=== PATIENT | female | born 1980 | race Caucasian/White ===

== ENCOUNTER 2023-02-16 10:23 | Outpatient (OUT) | payer OTHER, SELFPAY ==
--- NOTE | 2023-02-16 10:34 | US_ITS ---
The [address] [address] Patient Name: JUANIS ONEILL MRN: [id number] date: 1980 Sex: F Assigned Patient Location: US Current Patient Location: US Accession/Order Number: [id number] Exam Date: 02/16/2023 10:35 Report Date: 02/16/2023 21:16 At the request of: MARLENY LAYNE Procedure: US pelvis w/ transvaginal EXAM: US pelvis w/ transvaginal INDICATION: Menorrhagia With Irregular Cycle N92.1 COMPARISON: Pelvic ultrasound 08/25/2022 TECHNIQUE: Transabdominal and transvaginal ultrasound with grayscale, color and spectral Doppler imaging. FINDINGS: Uterus:10.0 x 5.8 x 7.0 cm. Nabothian cyst along the cervix. 1.4 x 1.2 x 1.2 cm hypoechoic nodule anterior uterine body. Endometrium:6.0 mm Right ovary: 3.3 x 2.3 x 2.6 cm. Volume: 10.2 cc Dominant follicle within the left ovary Left ovary: 4.5 x 2.3 x 2.6cm. Volume: 13.9 cc Normal color Doppler with arterial/venous spectral tracing to both ovaries. No free fluid in the cul-de-sac. US/US pelvis w/ transvaginal IMPRESSION: 1. No acute findings. Findings likely representing small uterine fibroid. No suspicious uterine or ovarian mass. Electronically authenticated by: MARLINE ACEVES Date: 02/16/2023 21:16
[2023-02-16 11:38] LABS: Basophils Percent Auto 0.5 % (0.2-2.0); Eosinophils Absolute Auto 0.1 10^3/uL (0.0-0.7); Eosinophils Percent Auto 2.2 % (0.9-7.0); Hematocrit 34.9 % (36.0-48.0); Hemoglobin 9.7 g/dL (12.0-16.0); Immature Granulocytes Abs Auto 0.01 10^3/uL (0.00-0.03); Immature Granulocytes Pct Auto 0.2 % (0.0-0.5); Lymphocytes Absolute Auto 1.9 10^3/uL (1.2-3.8); Lymphocytes Percent Auto 30.2 % (20.5-60.0); Mean Corpuscular HGB Conc 27.8 g/dL (29.9-35.2); Mean Corpuscular Hemoglobin 20.5 pg (26.7-34.0); Mean Corpuscular Volume 73.8 fL (81.0-99.0); Mean Platelet Volume 11.6 fL (9.5-13.5); Monocytes Absolute Auto 0.4 10^3/uL (0.3-0.8); Monocytes Percent Auto 6.7 % (1.7-12.0); Neutrophils Absolute Auto 3.8 10^3/uL (1.4-6.5); Neutrophils Percent Auto 60.2 % (43.0-75.0); Platelet Count 272 10^3/uL (150-450); Red Blood Count 4.73 10^6/uL (4.20-5.40); Red Cell Distribution Width 16.8 % (11.0-15.0); White Blood Count 6.3 10^3/uL (4.0-11.0)
== END 2023-02-16 10:24 | disposition home or self-care (01) ==
LOC: US 10:28
PROVIDERS: Visit Provider Obstetrics & Gynecology
DX: N92.1 Excessive and frequent menstruation with irregular cycle (principal)
CPT/HCPCS: 36415; 76830; 76856; 85025

== ENCOUNTER 2023-03-05 10:50 | Emergency (ER) | payer OTHER, SELFPAY ==
[2023-03-05 11:00] VITALS: BP 131/64; PULSE 67; RESP 18; TEMP 36.9; O2SAT 97; BMI 44.6
[2023-03-05 12:02] VITALS: BP 130/62; PULSE 79; RESP 18; O2SAT 98
--- NOTE | 2023-03-05 12:18 | ED_ITS ---
HPI - General Adult General Chief complaint: Urogenital-Female Stated complaint: UROGENITAL-FEMALE Time Seen by Provider: 03/05/23 12:04 Source: patient Mode of arrival: Wheelchair Limitations: no limitations History of Present Illness HPI narrative: Patient is a [id number] female who is presenting to the Emergency Room with chief complaint of dysfunctional uterine bleeding. Patient had a IUD placed several weeks ago. Patient stated she been having intermittent bleeding since then, but having more bleeding yesterday and today. Patient says that she has had a history of a D and C and blood transfusion secondary to vaginal bleeding the past. Patient is a , with 5 live children and 4 miscarriages. Patient is not lightheaded or dizzy. Patient has some mild suprapubic cramping. Mother bedside. Dr. Rodriguez is patient's [employer]. Patient did not call Dr. Rodriguez office this morning, she came to the Emergency Room for her heavy bleeding yesterday and today. No urinary frequency or burning. No diarrhea or constipation. No trauma. No traumatic intercourse, no falls, no trauma that would be related to increasing bleeding. . All systems are negative except as noted/marked. All systems reviewed and othe rwise negative. . Nurses note and vital signs reviewed and patient is not hypoxic. General: The patient appears well and in no apparent distress. Patient is resting comfortably on cart. Patient is not toxic, lethargic, or listless Skin: Warm, dry, no pallor noted. There is no rash noted. No petechiae, purpura. Head: Normocephalic, atraumatic Eye: Normal conjunctiva, no drainage, EOMI. PERRL Ears, Nose, Mouth, and Throat: oral mucosa is moist. Nares patent. Mouth without vesicles. Cardiovascular: Regular Rate and Rhythm, no murmur, gallop, rub Respiratory: Patient is in no distress, no accessory muscle use, lungs are clear to auscultation, no wheezing, rales or rhonchi Back: non-tender, no CVA tenderness bilaterally to percussion. No CT LS midline pain GI: soft, obese, Mild suprapubic tenderness to palpation, no flank pain bilateral, no peritoneal signs, otherwise tenderness to palpation, no masses appreciated. No rebound, guarding, or rigidity noted. No flank pain bilateral, No distention Musculoskeletal: Patient has full range of motion of all of the extremities, no motor, sensory, or focal neurological deficits Neurological: A&O x3, normal speech Psychiatric: Cooperative Related Data Home Medications Medication Instructions Recorded Confirmed No Known Home Medications 03/05/23 03/05/23 Allergies Allergy/AdvReac Type Severity Reaction Status Date / Time No Known Drug Allergies Allergy Verified 03/05/23 11:00 [facility] Social History Smoking status: Current every day smoker Exam Constitutional Vital Signs, click to edit/add: Last Vital Signs Temp 98.4 F 03/05/23 11:00 Pulse 70 03/05/23 13:11 Resp 18 03/05/23 13:11 BP 130/60 03/05/23 13:11 Pulse Ox 99 03/05/23 13:11 O2 Del Method Room Air 03/05/23 13:11 Course Vital Signs Vital signs: Vital Signs Temperature 98.4 F 03/05/23 11:00 Pulse Rate 67 03/05/23 11:00 Respiratory Rate 18 03/05/23 11:00 Blood Pressure 131/64 03/05/23 11:00 Pulse Oximetry 97 03/05/23 11:00 Oxygen Delivery Method Room Air 03/05/23 11:00 Temperature 98.4 F 03/05/23 11:00 Pulse Rate 70 03/05/23 13:11 Respiratory Rate 18 03/05/23 13:11 Blood Pressure 130/60 03/05/23 13:11 Pulse Oximetry 99 03/05/23 13:11 Oxygen Delivery Method Room Air 03/05/23 13:11 Medical Decision Making [facility] Narrative Medical decision making narrative: `[address] Rodriguez, he is aware of patient in the Emergency Room. He recommended to perform ultrasound if possible to make sure that the IUD has seated in appropriate place and let the patient that she could have bleeding for the next 2-3 months. He will follow-up with the patient in the outpatient setting, no other recommended test at this time. 1500 Therapy appears the patient's IUD is intact and in place. No acute te sting otherwise is indicated, patient hemodynamically stable. Patient does not appear to be symptomatically anemic where she would need a transfusion, education was done at bedside discussing this. Patient's results were discussed, she was given a copy of her ultrasound report as well. Patient was told several times at bedside that she may have dysfunctional uterine bleeding for the next 2 or 3 months. Patient has an outpatient appointment scheduled on March 13. Patient will continue increase fluids, no other acute questions at discharge. Mother has been at bedside. Discharge Plan Discharge Chief Complaint: Urogenital-Female Clinical Impression: DUB (dysfunctional uterine bleeding) Patient Disposition: Home, Self-Care Condition: Fair Prescriptions / Home Meds: No Action No Known Home Medications Instructions: Abnormal (Dysfunctional) Uterine Bleeding (ED) Additional Instructions: Increase fluids at home. He may had dysfunctional uterine bleeding for the next 2 or 3 months, follow-up with Dr. Rodriguez at your scheduled appointment on March 13. Stand Alone Forms: Portal Instructions Referrals: Physician,Non-Staff, MD [Primary Care Provider] - 1 week Discharge Date/Time: 03/05/23 15:01
--- NOTE | 2023-03-05 12:18 | US_ITS ---
The [address] [address] Patient Name: JUANIS OENILL MRN: [id number] date: 1980 Sex: F Assigned Patient Location: ER Current Patient Location: ER Accession/Order Number: [id number] Exam Date: 03/05/2023 12:30 Report Date: 03/05/2023 13:24 At the request of: SHERRILL PHAN Procedure: US pelvis transvaginal Ultrasound pelvis, non-obstetric CLINICAL: Request by Dr. Rodriguez, placement of IUD , vaginal bleeding for 23 days. TECHNIQUE: Transvaginal pelvic ultrasound was performed. FINDINGS: Comparison: Comparison made to study 02/16/2023. The uterus is anteverted in position. It measures 10.9 x 6.1 x 6.8 cm. The myometrium is heterogeneous. In the anterior mid uterine body is a hypoechoic vascular nodule with some shadowing and favoring in intramural fibroid and measures 1.5 x 1.4 x 1.4 cm. The endometrial complex measures 14 mm in thickness. There is an intrauterine device with the arms of the IUD in the upper body and the stem in the mid to lower uterine segment. The superior margin of the IUD is approximately 1.2 cm from the superior margin of the endometrium at the fundus, as seen on the last image 53. The right ovary measures 2.5 x 1.8 x 1.8 cm with small follicles. The left ovary measures 6.0 x 2.9 x 3.2 cm. There are 2 dominant cysts in the left ovary measuring 2.5 x 2.3 x 2.1 cm and 2.9 x 2.3 x 1.6 cm. There is normal vascular flow to both ovaries, with resistive index of 0.41 on right and 0.56 on the left. No adnexal abnormality. There is no free pelvic fluid or mass seen on either side. US/US pelvis transvaginal IMPRESSION: 1. Endometrial complex thickness of 14 cm. Intrauterine device with the arms of the IUD in the upper uterine body approximately 1.2 cm from the superior margin of the endometrium at the fundus, and the stem in the mid to lower uterine segment. 2. Heterogeneous myometrium, with a 1.5 cm intramural fibroid in the anterior mid uterine body. 3. Normal right ovary, and 2 dominant cysts in the left ovary measuring 2.5 cm and 2.9 cm. 4. No free pelvic fluid. Electronically authenticated by: NAPOLEON SOLOMON Date: 03/05/2023 13:24
[2023-03-05 13:11] VITALS: BP 130/60; PULSE 70; RESP 18; O2SAT 99
== END 2023-03-05 15:01 | disposition home or self-care (01) ==
PROVIDERS: Emergency Provider Emergency Medicine
DX: N93.8 Other specified abnormal uterine and vaginal bleeding (principal); Z97.5 Presence of (intrauterine) contraceptive device; F17.210 Nicotine dependence, cigarettes, uncomplicated
CPT/HCPCS: 76830; 99284

== ENCOUNTER 2023-06-17 00:25 | Emergency (ER) | payer OTHER, SELFPAY ==
[2023-06-17 00:29] VITALS: BP 162/80; PULSE 74; RESP 18; TEMP 37.3; O2SAT 100; BMI 44.1
--- OUTSIDE RECORDS SUMMARY | 2023-06-17 00:32 | XMS_ITS | CCD ---
Author Name Unknown Address [address] [facility] [address] [place] [address] Organization [facility] Care Team Providers Care Buying Intern Name Role Phone Ale, Rayeesa Primary Care Provider [phone] ABHILASH MURRELL Attending Unavailable UNKNOWN, PHYSICIAN Primary Care Unavailable UNKNOWN, PHYSICIAN Referring Unavailable JUAN ABDUL Admitting Unavailable AHMAD, RAYEESA Primary Care Unavailable VENKAT AUGUSTE Admitting Unavailable SELF, REFERRED Referring Unavailable DOTTIE BALDWIN Attending Unavailable AHMAD, RAYEESA Primary Care Unavailable SELF, REFERRED Referring Unavailable LALIT SUN Admitting Unavailable DOTTIE BALDWIN Attending Unavailable KYRIE SINGH Attending Unavailable AHMAD, RAYEESA Primary Care Unavailable SELF, REFERRED Referring Unavailable KYRIE SINGH Admitting Unavailable SELF, REFERRED Referring Unavailable ODILON LEI Attending Unavailable AHMAD, RAYEESA Primary Care Unavailable LALIT SUN Admitting Unavailable Ahmad Jose J SONI Primary Care Provider Jose J Aguilera MD Primary Care Provider Jose J Aguilera MD Primary Care Provider LEESE, AMELIA L Referring Unavailable AHMAD, RAYEESA Primary Care Unavailable LEESE, AMELIA L Referring Unavailable AHMAD, RAYEESA Primary Care Unavailable LEESE, AMELIA L Referring Unavailable AHMAD, RAYEESA Primary Care Unavailable LEESE, AMELIA L Referring Unavailable AHMAD, RAYEESA Primary Care Unavailable PERNI, KERA C Referring Unavailable AHMAD, RAYEESA Primary Care Unavailable PERNI, KERA C Referring Unavailable AHMAD, RAYEESA Primary Care Unavailable LEESE, AMELIA L Referring Unavailable AHMAD, RAYEESA Primary Care Unavailable LEESE, AMELIA L Referring Unavailable AHMAD, RAYEESA Primary Care Unavailable LEESE, AMELIA L Referring Unavailable AHMAD, RAYEESA Primary Care Unavailable ANDRES, CARMENCITA E Admitting Unavailable ANDRES, CARMENCITA E Attending Unavailable AHMAD, RAYEESA Primary Care Unavailable LEESE, AMELIA L Referring Unavailable AHMAD, RAYEESA Primary Care Unavailable LEESE, AMELIA L Referring Unavailable AHMAD, RAYEESA Primary Care Unavailable LEESE, AMELIA L Referring Unavailable AHMAD, RAYEESA Primary Care Unavailable ANDRES, CARMENCITA E Attending Unavailable ANDRES, CARMENCITA E Consulting Unavailable ANDRES, CARMENCITA E Admitting Unavailable AHMAD, RAYEESA Primary Care Unavailable AHMAD, RAYEESA Primary Care Unavailable LEESE, AMELIA L Referring Unavailable AHMAD, RAYEESA Primary Care Unavailable HERMILA ABARCA Attending Unavailable HERMILA ABARCA Admitting Unavailable AHMAD, RAYEESA Primary Care Unavailable BRAYAN WATERS Attending Unavailable AHMAD, RAYEESA Primary Care Unavailable ANDRES, CARMENCITA E Referring Unavailable AHMAD, RAYEESA Primary Care Unavailable HERMILA ABARCA Attending Unavailable HERMILA ABARCA Admitting [place] [facility] [place] Primary Care Unavailable DARLING ., DR GATO Santos Admitting Unavailable DARLING ., DR GATO Santos Attending Unavailable DARLING ., DR GATO Santos Consulting Unavailable XI ., DR FARMER Consulting Unavailable NADERER, DR ROLO Daley Consulting Unavailable CURTIS, KALI Consulting Unavailable MALINI SOTO Consulting Unavailable SANG ZENDEJAS Consulting Unavailable DONELL BERNSTEIN Consulting Unavailable KARASIK ., DR [place] Admitting Unavailabl e KARASIK ., DR [place] Attending Unavailabl e KARASIK ., DR [place] Consulting Unavailabl e KARASIK ., DR [place] Admitting Unavailabl e KARASIK ., DR [place] Attending Unavailabl e Medications Current Medications Medication Drug Class(es) Dates Sig (Normalized) Sig (Original) acetaminophen 500 mg oral tablet (1 source) Start: 11-11-2021 1,000 mg, Oral, EVERY 6 HOURS PRN, Starting on Sun11/11/21 at 1119, Until Discontinued, Other, Pain (1-10) Give in addition to any other pain medication ordered at same time for any pain indication.&nbsp ; Maximum dose of acetaminophen is 4000mg from all sources in 24 hours. Alternate ibuprofen and acetaminophen every 4 hours. Post-op calcium chloride 0.0014 meq/ml / potassium chloride 0.004 meq/ml / sodium chloride 0.103 meq/ml / sodium lactate 0.028 meq/ml injectable solution (2 sources) Start: 11-11-2021 IntraVENous, at 75 mL/hr, CONTINUOUS, Starting on Sun11/11/21 at 1145, Post-op Start: 11-11-2021 End: 11-11-2021 lactated ringers infusion 10 ml calcium gluconate 100 mg/ml injection (1 source) Start: 11-11-2021 calcium glucon ate 10 % injection 1,000 mg cephalexin 500 mg oral capsule (2 sources) Cephalosporin Antibacterial Start: 03-06-2021 End: 03-13-2021 take 1 capsule by mouth four times daily cephALEXin (KEFLEX) 500 MG capsule Take 1 capsule by mouth 4 times daily for 7 days 28 capsule 0 03/06/2021 03/13/2021 Active docusate sodium 100 mg oral capsule (1 source) Start: 11-10-2021 End: 12-10-2021 take 1 capsule by mouth twice daily docusate sodium (COLACE) 100 MG capsule Take 1 capsule by mouth 2 times daily 60 capsule 0 11/10/2021 12/10/2021 Active doxylamine succinate 25 mg oral tablet (9 sources) Start: 02-24-2020 take 1 tablet by mouth every six hours SLEEP AID 25 MG tablet TAKE 1 TABLET BY MOUTH EVERY 6 HOURS 0 02/24/2020 Active famotidine 20 mg oral tablet (5 sources) Histamine-2 Receptor Antagonist Start: 09-05-2021 take 1 tablet by mouth twice daily famotidine (PEPCID) 20 MG tablet Indications: Heartburn during in second trimester take 1 tablet by mouth twice a day 60 tablet 3 09/05/2021 Active Start: 05-17-2021 take 1 tablet by [place] twice daily famotidine (PEPCID) 20 MG tablet Indications: Heartburn during in second trimester Take 1 tablet by mouth 2 times daily 60 tablet 3 05/17/2021 Active ferrous sulfate 325 mg oral tablet (3 sources) Start: 11-12-2021 take 1 tablet by mouth twice daily ferrous sulfate (IRON 325) 325 (65 Fe) MG tablet Take 1 tablet by mouth 2 times daily 60 tablet 2 11/12/2021 Active Start: 04-29-2019 take 1 tablet by [place] th twice daily ferrous sulfate 325 (65 Fe) MG tablet Indications: Iron deficiency anemia due to chronic blood loss Take 1 tablet by mouth 2 times daily 180 tablet 1 04/29/2019 Active ibuprofen 600 mg oral tablet (12 sources) Nonsteroidal Anti-inflammatory Drug Start: 11-12-2021 take 1 tablet by mouth every six hours as needed for pain ibuprofen (ADVIL;MOTRIN) 600 MG tablet Take 1 tablet by mouth every 6 hours as needed for Pain 30 tablet 0 11/12/2021 Active Start: 11-11-2021 800 mg, Oral, EVERY 6 HOURS PRN, Starting on Sun11/11/21 at 2200, Until Discontinued, Pain Mild (1-3) Once tolerating PO, discontinue Toradol and begin ibuprofen 8 hours after the final dose of Toradol. Alternate ibuprofen and acetaminophen every 4 hours. Post-op Start: 11-10-2021 End: 12-10-2021 take 1 tablet by mouth every eight hours ibuprofen (ADVIL;MOTRIN) 800 MG tablet Take 1 tablet by mouth every 8 hours 90 tablet 0 11/10/2021 12/10/2021 Active Start: 03-05-2020 take 1 tablet by [place] th every eight hours as needed for pain ibuprofen (ADVIL;MOTRIN) 800 MG tablet Indications: Pelvic pain in female Take 1 tablet by mouth every 8 hours as needed for Pain 90 tablet 0 03/05/2020 Active Start: 04-16-2019 take 1 tablet by [place] th every eight hours as needed for pain ibuprofen (ADVIL;MOTRIN) 800 MG tablet Indications: Menorrhagia with irregular cycle Take 1 tablet by mouth every 8 hours as needed for Pain Short term. Take with food. 90 tablet 0 04/16/2019 Active 1 ml medroxyPROGESTERone acetate 150 mg/ml injection (6 sources) Progestin Start: 02-13-2019 medroxyPROGESTERone (DEPO-PROVERA) 150 MG/ML injection Indications: Negative test , Encounter for Depo-Provera contraception , Women's annual routine gynecological examination Inject 1 mL into the muscle every 3 months for 1 dose 1 each 3 02/13/2019 Active nitrofurantoin, macrocrystals 25 mg / nitrofurantoin, monohydrate 75 mg oral capsule (5 sources) Nitrofuran Antibacterial Start: 03-01-2020 nitrofurantoin, macrocrystal-monohydra te, (MACROBID) 100 MG capsule ondansetron 4 mg disintegrating oral tablet (2 sources) Serotonin-3 Receptor Antagonist Start: 11-12-2021 take 1 tablet by mouth three times daily as needed for nausea ondansetron (ZOFRAN-ODT) 4 MG disintegrating tablet Take 1 tablet by mouth 3 times daily as needed for Nausea or Vomiting 21 tablet 0 11/12/2021 Active Start: 03-06-2021 End: 03-06-2021 ondansetron (ZOFRAN) injecti on 4 mg ondansetron (ZOFRAN-ODT) disintegrating tablet 4 mg (1 source) Start: 11-11-2021 ondansetron (Z OFRAN-ODT) disintegrating tablet 4 mg Vit-Fe Fumarate-FA (PNV PLUS MULTIVITAMIN) 27-1 MG TABS (15 sources) Start: 07-13-2021 End: 07-08-2022 take 1 tablet by mouth once daily Vit-Fe Fumarate-FA (PNV PLUS MULTIVITAMIN) 27-1 MG TABS Indications: Missed menses , Positive test Take 1 tablet by mouth daily 30 tablet 11 07/13/2021 07/08/2022 Active Start: 03-09-2021 End: 03-04-2022 take 1 tablet by mouth once daily Vit-Fe Fumarate-FA (PNV PLUS MULTIVITAMIN) 27-1 MG TABS Indications: Missed menses Take 1 tablet by mouth daily 30 tablet 11 03/09/2021 03/04/2022 Active Start: 06-14-2020 take 1 tablet by [place] th once daily Vit-Fe Fumarate-FA (PNV PLUS MULTIVITAMIN) 27-1 MG TABS Indications: Missed menses , Positive test Take 1 tablet by mouth daily 30 tablet 11 06/14/2020 Active Start: 06-14-2020 End: 06-09-2021 take 1 tablet by mouth once daily Vit-Fe Fumarate-FA (PNV PLUS MULTIVITAMIN) 27-1 MG TABS Indications: Missed menses , Positive test Take 1 tablet by mouth daily 30 tablet 11 06/14/2020 06/09/2021 Active Vit-Fe Fumarate-FA ( VITAMIN) 27-1 MG TABS tablet (9 sources) Start: 02-24-2020 take 1 tablet by mouth once daily Vit-Fe Fumarate-FA ( VITAMIN) 27-1 MG TABS tablet take 1 tablet by mouth once daily 0 02/24/2020 Active promethazine hydrochloride 25 mg oral tablet (7 sources) Phenothiazine Start: 03-09-2021 take 1 tablet by mouth every eight hours as needed for nausea promethazine (PHENERGAN) 25 MG tablet Indications: Missed menses Take 1 tablet by mouth every 8 hours as needed for Nausea 30 tablet 2 03/09/2021 Active Start: 06-14-2020 take 1 tablet by [place] th every eight hours as needed for nausea promethazine (PHENERGAN) 25 MG tablet Indications: Nausea Take 1 tablet by mouth every 8 hours as needed for Nausea 30 tablet 2 06/14/2020 Active pyridoxine hydrochloride 25 mg oral tablet (9 sources) Start: 02-24-2020 take 1 tablet by mouth three times daily vitamin B-6 (PYRIDOXINE) 25 MG tablet TAKE 1 TABLET BY MOUTH 3 TIMES DAILY 0 02/24/2020 Active 1000 ml sodium chloride 9 mg/ml injection (4 sources) Start: 11-11-2021 IntraVENous, a t 5-250 mL/hr, PRN, if patient receiving piggyback infusions and maintenance fluids are not ordered OR KVO fluids to protect IV site / prevent frequent line interruptions/ long duration, Starting on Sun11/11/21 at 1119 For piggyback infusion, administer at same rate as piggyback for a total of 25 mL. Enter 25 mL into dose field and piggyback rate into rate field of order. If piggyback is infusing at a rate less than 100 mL/hr, enter 25 mL into dose field and 100 mL/hr into rate field of order. For KVO fluids, enter rate of 20 mL/hr or less into rate field of order. Post-op Start: 11-11-2021 take 1 dose intraven ously twice daily 5-40 mL, IntraVENous, EVERY 12 HOURS SCHEDULED (2 times per day), First dose on Sun11/11/21 at 1145, Until Discontinued For Line Patency: Peripheral IV = 5 mL; Midline or Central Line = 10 mL/lumen. If following IV push medication, administer flush at same rate as the IV push. Flush volume is determined by type of infusion therapy being given. For non-viscous solutions use: Peripheral IV = 5 mL Midline or Central Line = 10 mL/lumen For viscous solutions (i.e. blood components, parenteral nutrition, contrast media, or after obtaining blood sample) use: Peripheral IV = 10 mL Midline or Central Line = 20 mL/lumen Post-op Start: 11-11-2021 take 5-40 mL intrave nously once as needed 5-40 mL, IntraVENous, PRN, Starting on Sun11/11/21 at 1119, Until Discontinued, Line Care, After every IV line use For Line Patency: Peripheral IV = 5 mL; Midline or Central Line = 10 mL/lumen. If following IV push medication, administer flush at same rate as the IV push. Flush volume is determined by type of infusion therapy being given. For non-viscous solutions use: Peripheral IV = 5 mL Midline or Central Line = 10 mL/lumen For viscous solutions (i.e. blood components, parenteral nutrition, contrast media, or after obtaining blood sample) use: Peripheral IV = 10 mL Midline or Central Line = 20 mL/lumen Post-op Start: 03-06-2021 End: 03-06-2021 0.9 % sodium chloride bolus tiZANidine 4 mg oral tablet (6 sources) Central alpha-2 Adrenergic Agonist Start: 10-22-2018 take 1 tablet by mouth every eight hours as needed for pain tiZANidine (ZANAFLEX) 4 MG tablet Indications: Lumbar paraspinal muscle spasm Take 1 tablet by mouth every 8 hours as needed (muscle pain) Do not drive/operate machinery. 20 tablet 0 10/22/2018 Active Completed/Discontinued Medications Medication Drug Class(es) Dates Sig (Normalized) Sig (Original) albuterol 0.833 mg/ml / ipratropium bromide 0.167 mg/ml inhalation solution (1 source) Anticholinergic, beta2-Adrenergic Agonist Start: 11-11-2021 End: 11-11-2021 ipratropium-albutero l (DUONEB) nebulizer solution 1 ampule aspirin 81 mg delayed release oral tablet (4 sources) Platelet Aggregation Inhibitor, Nonsteroidal Anti-inflammatory Drug Start: 06-30-2021 End: 11-12-2021 take 1 tablet by mouth once daily aspirin EC 81 MG EC tablet Take 1 tablet by mouth daily 30 tablet 5 06/30/2021 11/12/2021 Discontinued (Stop Taking at Discharge) cyclobenzaprine hydrochloride 10 mg oral tablet (1 source) Muscle Relaxant Start: 07-03-2021 End: 07-03-2021 cyclobenzaprine (FLEXERIL) tablet 10 mg Start: 07-03-2021 End: 07-03-2021 cyclobenzaprine (FLEXERIL) t ablet 10 mg doxycycline monohydrate 100 mg oral capsule (1 source) Tetracycline-class Drug Start: 11-11-2021 End: 11-11-2021 doxycycline monohydrate (MONODOX) capsule 200 mg 1 ml ketorolac tromethamine 30 mg/ml cartridge (1 source) Nonsteroidal Anti-inflammatory Drug, Cyclooxygenase Inhibitor Start: 11-11-2021 End: 11-11-2021 take 1 dose intravenously once daily Ketorolac is contraindicated in patients with advanced renal impairment and in patients at risk of renal failure due to volume depletion. For 65 years of age and older OR weight less than 50 kg, use 15 mg IV every 6 hours; MAX dose: 60 mg/day. Dose greater than 30 mg must be administered via intramuscular route. Do not administer for more than 5 days. 30 mg, IntraVENous, EVERY 6 HOURS, 2 doses, First dose on Sun11/11/21 at 1200, Last dose on Sun11/11/21 at 1800 Discontinue when able to take PO ibuprofen. Post-op 500 ml magnesium sulfate 40 mg/ml injection (4 sources) Start: 11-11-2021 End: 11-11-2021 magnesium sulfate 4000 mg in 100 mL IVPB premix Start: 11-11-2021 End: 11-12-2021 magnesium sulfate (96722 mg/ 500mL infusion) Problems Active Problems Problem Classification Problem Date Documented Date Episodic/Chronic Acute posthemorrhagic anemia (4 sources) Acute posthemorrhagic anemia; Translations: [ACUTE POSTHEMORRHAGIC ANEMIA] Onset: 08-25-2022 Episodic Asthma (1 source) Mild intermittent asthma, uncomplicated; Translations: [MILD INTERMIT ASTHMA UNCOMPLICATED] Onset: 09-04-2022 Chronic Deficiency and other anemia (14 sources) Iron deficiency anemia due to blood loss; Translations: [Iron deficiency anemia secondary to blood loss (chronic)] Onset: 04-16-2019 04-16-2019 Chronic Deficiency and other anemia (1 source) Iron deficiency anemia secondary to blood loss (chronic); Translations: [IRON DEFIC ANEMIA SEC BLD LOSS CHRN] Onset: 09-04-2022 Chronic Deficiency and other anemia (9 sources) Iron deficiency anemia due to blood loss; Translations: [Iron deficiency anemia due to chronic blood loss] Onset: 04-16-2019 04-16-2019 Endometriosis (2 sources) Endometriosis (clinical); Translations: [Endometriosis, unspecified] Onset: 05-14-2018 Chronic Esophageal disorders (20 sources) Gastroesophageal reflux disease; Translations: [Gastro-esophageal reflux disease without esophagitis] 05-15-2018 Chronic Headache; including migraine (1 source) Tension-type headache, unspecified, not intractable; Translations: [TENSION-TYP HEADACHE UNS NOT INTRCT] Onset: 09-04-2022 Chronic Hypertension complicating ; childbirth and the puerperium (2 sources) -induced hypertension; Translations: [Gestational [-induced] hypertension without significant proteinuria, unspecified trimester] Onset: 11-11-2021 Episodic Menstrual disorders (20 sources) Menometrorrhagia; Translations: [Irregular periods] Onset: 04-16-2019 Resolved: 04-13-2021 04-16-2019 Chronic Other complications of ; puerperium affecting management of mother (1 source) Complication of obstetrical surgical wound; Translations: [Complication of the puerperium, unspecified] Episodic Other complications of ; puerperium affecting management of mother (2 sources) Retained products of conception; Translations: [Retained portions of placenta and membranes, without hemorrhage] Onset: 11-11-2021 Episodic Other complications of (4 sources) Maternal obesity complicating , childbirth and the puerperium, antepartum; Translations: [Obesity complicating , unspecified trimester] Onset: 04-13-2021 04-13-2021 Chronic Other complications of (1 source) Urinary tract infection in ; Translations: [Unspecified infection of urinary tract in , first trimester] Episodic Other complications of (6 sources) RhD negative; Translations: [Other specified related conditions, first trimester] Onset: 04-13-2021 04-13-2021 Episodic Other complications of (1 source) Elderly primigravida; Translations: [Supervision of elderly primigravida, third trimester] Onset: 08-23-2021 09-20-2021 Episodic Other ear and sense organ disorders (14 sources) Hearing problem; Translations: [Unspecified hearing loss, bilateral] Onset: 04-16-2019 04-16-2019 Chronic Other female genital disorders (1 source) Abnormal uterine and vaginal bleeding, unspecified; Translations: [ABNORMAL UTERINE VAGINAL BLEED UNS] Onset: 09-04-2022 Chronic Other female genital disorders (1 source) Vaginal bleeding; Translations: [Vaginal bleeding] Episodic Other nutritional; endocrine; and metabolic disorders (20 sources) Body mass index 40+ - severely obese; Translations: [Body mass index (BMI) 40.0-44.9, adult] Onset: 05-15-2018 05-15-2018 Chronic Other nutritional; endocrine; and metabolic disorders (1 source) Morbid (severe) obesity due to excess calories; Translations: [MORBID SEVERE OBES D/T EXCESS ZOFIA] Onset: 09-04-2022 Chronic Other nutritional; endocrine; and metabolic disorders (1 source) Body mass index (BMI) 40.0-44.9, adult; Translations: [BODY MASS INDEX BMI 40.0-44.9 ADULT] Onset: 09-04-2022 Chronic Other and delivery including normal (11 sources) test positive; Translations: [] Onset: 07-03-2021 Episodic Other screening for suspected conditions (not mental disorders or infectious disease) (1 source) Abnormal findings on diagnostic imaging of other specified body structures; Translations: [ABNORML FIND DX IMG OTH BODY STRUC] Onset: 09-04-2022 Chronic Other upper respiratory disease (1 source) Nasal congestion; Translations: [NASAL CONGESTION] Onset: 09-04-2022 Episodic Other upper respiratory infections (1 source) Postnasal drip; Translations: [POSTNASAL DRIP] Onset: 09-04-2022 Episodic Prolapse of female genital organs (2 sources) Vaginal vault prolapse; Translations: [Female genital prolapse, unspecified] Chronic Residual codes; unclassified (10 sources) Tobacco user; Translations: [Tobacco abuse] Onset: 05-15-2018 05-15-2018 Chronic Residual codes; unclassified (1 source) Gestation period, 36 weeks; Translations: [36 weeks gestation of ] Episodic Residual codes; unclassified (1 source) Gestation period, 34 weeks; Translations: [34 weeks gestation of ] Onset: 10-04-2021 10-04-2021 Episodic Spondylosis; intervertebral disc disorders; other back problems (10 sources) Spasm of muscle of lower back; Translations: [Lumbar paraspinal muscle spasm] Onset: 05-29-2018 05-29-2018 Spontaneous (4 sources) with abortive outcome; Translations: [Miscarriage] Onset: 11-11-2021 Episodic Substance-related disorders (5 sources) Smoker; Translations: [Nicotine dependence, unspecified, uncomplicated] Onset: 05-15-2018 07-06-2021 Chronic Thyroid disorders (20 sources) Hypothyroidism; Translations: [Goiter] Onset: 04-16-2019 Resolved: 04-16-2019 05-15-2018 Chronic Unclassified (2 sources) Patient encounter status; Translations: [Screen for STD (sexually transmitted disease)] Unclassified (1 source) LOW BACK PAIN, UNSPECIFIED; Translations: [LOW BACK PAIN, UNSPECIFIED] Onset: 09-04-2022 Unclassified (1 source) CONTACT W/AND (SUSP) EXPOS COVID-19; Translations: [CONTACT W/AND (SUSP) EXPOS COVID-19] Onset: 09-04-2022 Urinary tract infections (1 source) Urinary tract infection, site not specified; Translations: [UTI SITE NOT SPECIFIED] Onset: 09-04-2022 Episodic Past or Other Problems Problem Classification Problem Date Documented Date Episodic/Chronic Abdominal pain (20 sources) Pain in female pelvis; Translations: [Lower abdominal pain] Onset: 04-16-2019 Resolved: 06-14-2020 04-29-2019 Episodic Hemorrhage during ; abruptio placenta; placenta previa (11 sources) Threatened miscarriage in first trimester; Translations: [Threatened ] Onset: 07-12-2020 07-12-2020 Episodic Immunizations and screening for infectious disease (3 sources) Contact with and (suspected) exposure to other viral communicable diseases; Translations: [Requires diphtheria, tetanus and pertussis vaccination] Onset: 08-23-2021 08-23-2021 Episodic Other complications of (5 sources) Hypothyroidism in ; Translations: [Endocrine, nutritional and metabolic diseases complicating , first trimester] Resolved: 09-06-2021 04-13-2021 Episodic Other complications of (3 sources) Multigravida of advanced maternal age; Translations: [Supervision of elderly multigravida, first trimester] Onset: 04-13-2021 04-13-2021 Episodic Other complications of (2 sources) Abnormal findings on screening of mother; Translations: [Abnormal hematological finding on screening of mother] Onset: 07-06-2021 07-06-2021 Episodic Other complications of (2 sources) High risk ; Translations: [Supervision of high risk , unspecified, second trimester] Onset: 07-06-2021 07-06-2021 Episodic Other ear and sense organ disorders (9 sources) Hearing problem; Translations: [Hearing problem of both ears] Onset: 04-16-2019 04-16-2019 Episodic Other female genital disorders (20 sources) Enlarged uterus; Translations: [Hypertrophy of uterus] Onset: 04-29-2019 04-29-2019 Episodic Other screening for suspected conditions (not mental disorders or infectious disease) (4 sources) Encounter for screening for malignant neoplasm of cervix; Translations: [ENC SCREENING MALIG NEOPLASM CERV] Onset: 05-26-2022 Episodic Residual codes; unclassified (10 sources) Tobacco user; Translations: [Tobacco use] Onset: 05-15-2018 05-15-2018 Episodic Residual codes; unclassified (5 sources) Gestation period, 9 weeks; Translations: [9 weeks gestation of ] Onset: 04-13-2021 Resolved: 05-17-2021 05-17-2021 Episodic Residual codes; unclassified (3 sources) Gestation period, 21 weeks; Translations: [21 weeks gestation of ] Onset: 07-06-2021 Resolved: 09-06-2021 07-06-2021 Episodic Residual codes; unclassified (2 sources) Gestation period, 28 weeks; Translations: [28 weeks gestation of ] Onset: 08-23-2021 Resolved: 09-06-2021 09-06-2021 Episodic Spondylosis; intervertebral disc disorders; other back problems (12 sources) Spasm of muscle of lower back; Translations: [Muscle spasm of back] Onset: 05-29-2018 05-29-2018 Episodic Results Test Name Value Interpretation Reference Range Facility CULTURE URINEon 08-28-2022 CULTURE URINE Isolate 1 Streptococcus agalactiae 50,000 cfu/mL of Isolate 2 Escherichia coli 25,000 cfu/mL of ORGANISM 1 Streptococcus agalactiae ANTIBIOTIC M.I.C RX STATUS Benzylpenicillin <=0.06 S F Ampicillin <=0.25 S F Cefotaxime <=0.12 S F Ceftriaxone <=0.12 S F Levofloxacin 0.5 S F Inducible Clindamycin Resistance Neg NEG F Erythromycin >=8 R F Clindamycin >=1 R F Linezolid <=2 S F Vancomycin 0.5 S F Tetracycline >=16 R F ORGANISM 2 Escherichia coli ANTIBIOTIC M.I.C RX STATUS Ampicillin <=2 S F Ampicillin/Sulbactam <=2 S F Piperacillin/Tazobactam <=4 S F Cefazolin <=4 S F Ceftazidime <=1 S F Ceftriaxone <=1 S F Ertapenem <=0.5 S F Imipenem <=0.25 S F Amikacin <=2 S F Gentamicin <=1 S F Tobramycin <=1 S F Ciprofloxacin <=0.25 S F Levofloxacin <=0.12 S F Nitrofurantoin <=16 S F Trimethoprim/Sulfamethoxaz ole <=20 S F Normal [facility] Comment on above: Performed By: #### [id number] #### [facility] [address] [place] [address] Dr. Allie Cummings CBC AUTO DIFFon 08-27-2022 BASO # 0.1 103/ul Normal 0.0-0.1 [facility] Comment on above: Performed By: #### C BC #### [facility] [address] [place] [address] Dr. Allie Cummings Basophils/100 WBC (Bld) 0.4 % Normal 0.2-2.0 [facility] Comment on above: Performed By: #### C BC #### [facility] [address] [place] [address] Dr. Allie Cummings EO # 0.2 103/ul Normal 0.0-0.7 [facility] Comment on above: Performed By: #### C BC #### [facility] [address] [place] [address] Dr. Allie Cummings Eosinophils/100 WBC (Bld) 1.3 % Normal 0.9-7.0 [facility] Comment on above: Performed By: #### C BC #### [facility] [address] [place] [address] Dr. Allie Cummings Erythrocyte distribution width (RBC) [Ratio] 27.7 % Critically high 11.0-15.0 [facility] Comment on above: Performed By: #### C BC #### [facility] [address] [place] [address] Dr. Allie Cummings Hematocrit (Bld) [Volume fraction] 25.7 % Critically low 36.0-48.0 [facility] Comment on above: Performed By: #### C BC #### [facility] [address] [place] [address] Dr. Allie Cummings Hemoglobin (Bld) [Mass/Vol] 7.3 g/dL Critically low 12.0-16.0 [facility] Comment on above: Performed By: #### C BC #### [facility] [address] [place] [address] Dr. Allie Cummings IG # 0.09 10e3/ul Critically high 0.00-0.03 [facility] Comment on above: Performed By: #### C BC #### [facility] [address] [place] [address] Dr. Allie Cummings IG % 0.7 % Critically high 0.0-0.5 [facility] Comment on above: Performed By: #### C BC #### [facility] [address] [place] [address] Dr. Allie Cummings LYMPH # 2.8 103/ul Normal 1.2-3.8 [facility] Comment on above: Performed By: #### C BC #### [facility] [address] [place] [address] Dr. Allie Cummings Lymphocytes/100 WBC (Bld) 20.3 % Critically low 20.5-60.0 [facility] Comment on above: Performed By: #### C BC #### [facility] [address] [place] [address] Dr. Allie Cummings MANUAL DIFF REQ NO Normal [facility] Comment on above: Performed By: #### C BC #### [facility] [address] [place] [address] Dr. Allie Cummings MCH (RBC) [Entitic mass] 19.9 pg Critically low 26.7-34.0 [facility] Comment on above: Performed By: #### C BC #### [facility] [address] [place] [address] Dr. Allie Cummings MCHC (RBC) [Mass/Vol] 28.4 g/dL Critically low 29.9-35.2 [facility] Comment on above: Performed By: #### C BC #### [facility] [address] [place] [address] Dr. Allie Cummings MCV (RBC) [Entitic vol] 70.0 fL Critically low 81.0-99.0 [facility] Comment on above: Performed By: #### C BC #### [facility] [address] [place] [address] Dr. Allie Cummings MONO # 0.7 103/ul Normal 0.3-0.8 [facility] Comment on above: Performed By: #### C BC #### [facility] [address] [place] [address] Dr. Allie Cummings Monocytes/100 WBC (Bld) 5.3 % Normal 1.7-12.0 [facility] Comment on above: Performed By: #### C BC #### [facility] [address] [place] [address] Dr. Allie Cummings NEUT # 9.8 103/ul Critically high 1.4-6.5 [facility] Comment on above: Performed By: #### C BC #### [facility] [address] [place] [address] Dr. Allie Cummings Neutrophils/100 WBC (Bld) 72.0 % Normal 43.0-75.0 [facility] Comment on above: Performed By: #### C BC #### [facility] [address] [place] [address] Dr. Allie Cummings PLT 226 103/ul Normal 150-450 [facility] Comment on above: Performed By: #### C BC #### [facility] [address] [place] [address] Dr. Allie Cummings RBC 3.67 106/ul Critically low 4.20-5.40 [facility] Comment on above: Performed By: #### C BC #### [facility] [address] [place] [address] Dr. Allie Cummings WBC 13.5 103/ul Critically high 4.0-11.0 [facility] Comment on above: Performed By: #### C BC #### [facility] [address] [place] [address] Dr. Allie Cummings BASO # 0.0 103/ul Normal 0.0-0.1 [facility] Comment on above: Performed By: #### C BC #### [facility] [address] [place] [address] Dr. Allie Cummings Basophils/100 WBC (Bld) 0.2 % Normal 0.2-2.0 [facility] Comment on above: Performed By: #### C BC #### [facility] [address] [place] [address] Dr. Allie Cummings EO # 0.1 103/ul Normal 0.0-0.7 [facility] Comment on above: Performed By: #### C BC #### [facility] [address] [place] [address] Dr. Allie Cummings Eosinophils/100 WBC (Bld) 0.5 % Critically low 0.9-7.0 [facility] Comment on above: Performed By: #### C BC #### [facility] [address] [place] [address] Dr. Allie Cummings Erythrocyte distribution width (RBC) [Ratio] 27.1 % Critically high 11.0-15.0 [facility] Comment on above: Performed By: #### C BC #### [facility] [address] [place] [address] Dr. Allie Cummings Hematocrit (Bld) [Volume fraction] 26.6 % Critically low 36.0-48.0 [facility] Comment on above: Performed By: #### C BC #### [facility] [address] [place] [address] Dr. Allie Cummings Hemoglobin (Bld) [Mass/Vol] 7.4 g/dL Critically low 12.0-16.0 [facility] Comment on above: Performed By: #### C BC #### [facility] [address] [place] [address] Dr. Allie Cummings IG # 0.09 10e3/ul Critically high 0.00-0.03 [facility] Comment on above: Performed By: #### C BC #### [facility] [address] [place] [address] Dr. Allie Cummings IG % 0.6 % Critically high 0.0-0.5 [facility] Comment on above: Performed By: #### C BC #### [facility] [address] [place] [address] Dr. Allie Cummings LYMPH # 2.4 103/ul Normal 1.2-3.8 [facility] Comment on above: Performed By: #### C BC #### [facility] [address] [place] [address] Dr. Allie Cummings Lymphocytes/100 WBC (Bld) 16.5 % Critically low 20.5-60.0 [facility] Comment on above: Performed By: #### C BC #### [facility] [address] [place] [address] Dr. Allie Cummings MANUAL DIFF REQ NO Normal [facility] Comment on above: Performed By: #### C BC #### [facility] [address] [place] [address] Dr. Allie Cummings MCH (RBC) [Entitic mass] 19.5 pg Critically low 26.7-34.0 [facility] Comment on above: Performed By: #### C BC #### [facility] [address] [place] [address] Dr. Allie Cummings MCHC (RBC) [Mass/Vol] 27.8 g/dL Critically low 29.9-35.2 [facility] Comment on above: Performed By: #### C BC #### [facility] [address] [place] [address] Dr. Allie Cummings MCV (RBC) [Entitic vol] 70.0 fL Critically low 81.0-99.0 [facility] Comment on above: Performed By: #### C BC #### [facility] [address] [place] [address] Dr. Allie Cummings MONO # 0.9 103/ul Critically high 0.3-0.8 [facility] Comment on above: Performed By: #### C BC #### [facility] [address] [place] [address] Dr. Allie Cummings Monocytes/100 WBC (Bld) 6.0 % Normal 1.7-12.0 [facility] Comment on above: Performed By: #### C BC #### [facility] [address] [place] [address] Dr. Allie Cummings NEUT # 10.9 103/ul Critically high 1.4-6.5 [facility] Comment on above: Performed By: #### C BC #### [facility] [address] [place] [address] Dr. Allie Cmumings Neutrophils/100 WBC (Bld) 76.2 % Critically high 43.0-75.0 [facility] Comment on above: Performed By: #### C BC #### [facility] [address] [place] [address] Dr. Allie Cummings Platelet mean volume (Bld) [Entitic vol] 0.0 fL Critically low 9.5-13.5 [facility] Comment on above: Performed By: #### C BC #### [facility] [address] [place] [address] Dr. Allie Cummings PLT 243 103/ul Normal 150-450 [facility] Comment on above: Performed By: #### C BC #### [facility] [address] [place] [address] Dr. Allie Cummings RBC 3.80 106/ul Critically low 4.20-5.40 [facility] Comment on above: Performed By: #### C BC #### [facility] [address] [address] [address] Allie Cummings WBC 14.3 103/ul Critically high 4.0-11.0 [facility] Comment on above: Performed By: #### C BC #### [facility] [address] [place] [address] Dr. Allie Cummings FOLATE ([facility])on 3 Folate 12.7 ng/mL Normal >3.0 [facility] Comment on above: Result Comment: A se rum folate concentration of less than 3.1 ng/mL is considered to represent clinical deficiency. Performed By: #### U MICRO, ERUR, PREGU #### [facility] [address] [place] [address] Dr. Allie Cummings FRESH FROZ PLASMAon 08-28-19 23 FRESH FROZ PLASMA Unit Blood Type O Po s Unit Number [id number] Status Information Transfused Product ID FFP Product Code [id number] [facility] Comment on above: Performed By: #### F FP #### [facility] [address] [place] [address] Dr. Allie Cummings PRBC LEUKOREDUCEDon 08-28-19 23 ABO and Rh group Nom (Bld) Cross Match Result Compatible Unit Blood Type O Neg Unit Number [id number] Status Information Transfused Product ID Red Blood Cells Product Code [id number] Cross Match Result Compatible Unit Blood Type O Neg Unit Number [id number] Status Information Transfused Product ID Red Blood Cells Product Code [id number] [facility] Comment on above: Performed By: #### P RBC #### [facility] [address] [place] [address] Dr. Allie Cummings ABO and Rh group Nom (Bld) Cross Match Result Compatible Unit Blood Type O Neg Unit Number [id number] Status Information Transfused Product ID Red Blood Cells Product Code [id number] Cross Match Result Compatible Unit Blood Type O Neg Unit Number [id number] Status Information Transfused Product ID Red Blood Cells Product Code [id number] Normal [facility] Comment on above: Performed By: #### 4 [id number] #### [facility] [address] [place] [address] Dr. Allie Cummings CBC AUTO DIFFon 08-26-2022 BASO # 0.0 103/ul Normal 0.0-0.1 [facility] Comment on above: Performed By: #### U MICRO, ERUR, PREGU #### [facility] [address] [place] [address] Dr. Allie Cummings Basophils/100 WBC (Bld) 0.3 % Normal 0.2-2.0 [facility] Comment on above: Performed By: #### U MICRO, ERUR, PREGU #### [facility] [address] [place] [address] Dr. Allie Cummings EO # 0.0 103/ul Normal 0.0-0.7 [facility] Comment on above: Performed By: #### U MICRO, ERUR, PREGU #### [facility] [address] [place] [address] Dr. Allie Cummings Eosinophils/100 WBC (Bld) 0.1 % Critically low 0.9-7.0 [facility] Comment on above: Performed By: #### U MICRO, ERUR, PREGU #### [facility] [address] [place] [address] Dr. Allie Cummings Erythrocyte distribution width (RBC) [Ratio] 26.6 % Critically high 11.0-15.0 [facility] Comment on above: Performed By: #### U MICRO, ERUR, PREGU #### [facility] [address] [place] [address] Dr. Allie Cummings Hematocrit (Bld) [Volume fraction] 27.3 % Critically low 36.0-48.0 [facility] Comment on above: Performed By: #### U MICRO, ERUR, PREGU #### [facility] [address] [place] [address] Dr. Allie Cummings Hemoglobin (Bld) [Mass/Vol] 7.6 g/dL Critically low 12.0-16.0 [facility] Comment on above: Performed By: #### U MICRO, ERUR, PREGU #### [facility] [address] [place] [address] Dr. Allie Cummings IG # 0.09 10e3/ul Critically high 0.00-0.03 [facility] Comment on above: Performed By: #### U MICRO, ERUR, PREGU #### [facility] [address] [place] [address] Dr. Allie Cummings IG % 0.8 % Critically high 0.0-0.5 [facility] Comment on above: Performed By: #### U MICRO, ERUR, PREGU #### [facility] [address] [place] [address] Dr. Allie Cummings LYMPH # 1.3 103/ul Normal 1.2-3.8 [facility] Comment on above: Performed By: #### U MICRO, ERUR, PREGU #### [facility] [address] [place] [address] Dr. Allie Cummings Lymphocytes/100 WBC (Bld) 10.6 % Critically low 20.5-60.0 [facility] Comment on above: Performed By: #### U MICRO, ERUR, PREGU #### [facility] [address] [place] [address] Dr. Allie Cummings MANUAL DIFF REQ NO Normal [facility] Comment on above: Performed By: #### U MICRO, ERUR, PREGU #### [facility] [address] [place] [address] Dr. Allie Cummings MCH (RBC) [Entitic mass] 19.3 pg Critically low 26.7-34.0 [facility] Comment on above: Performed By: #### U MICRO, ERUR, PREGU #### [facility] [address] [place] [address] Dr. Allie Cummings MCHC (RBC) [Mass/Vol] 27.8 g/dL Critically low 29.9-35.2 [facility] Comment on above: Performed By: #### U MICRO, ERUR, PREGU #### [facility] [address] [address] [address] Allie Cummings MCV (RBC) [Entitic vol] 69.5 fL Critically low 81.0-99.0 [facility] Comment on above: Performed By: #### U MICRO, ERUR, PREGU #### [facility] [address] [place] [address] Dr. Allie Cummings MONO # 0.4 103/ul Normal 0.3-0.8 [facility] Comment on above: Performed By: #### U MICRO, ERUR, PREGU #### [facility] [address] [place] [address] Dr. Allie Cummings Monocytes/100 WBC (Bld) 3.3 % Normal 1.7-12.0 [facility] Comment on above: Performed By: #### U MICRO, ERUR, PREGU #### [facility] [address] [place] [address] Dr. Allie Cummings NEUT # 10.2 103/ul Critically high 1.4-6.5 [facility] Comment on above: Performed By: #### U MICRO, ERUR, PREGU #### [facility] [address] [place] [address] Dr. Allie Cummings Neutrophils/100 WBC (Bld) 84.9 % Critically high 43.0-75.0 [facility] Comment on above: Performed By: #### U MICRO, ERUR, PREGU #### [facility] [address] [address] [address] Allie Cummings Platelet mean volume (Bld) [Entitic vol] 9.7 fL Normal 9.5-13.5 [facility] Comment on above: Performed By: #### U MICRO, ERUR, PREGU #### [facility] [address] [address] [address] Allie Cummings PLT 241 103/ul Normal 150-450 [facility] Comment on above: Performed By: #### U MICRO, ERUR, PREGU #### [facility] [address] [place] [address] Dr. Allie Cummings RBC 3.93 106/ul Critically low 4.20-5.40 [facility] Comment on above: Performed By: #### U MICRO, ERUR, PREGU #### [facility] [address] [place] [address] Dr. Allie Cummings WBC 11.9 103/ul Critically high 4.0-11.0 [facility] Comment on above: Performed By: #### U MICRO, ERUR, PREGU #### [facility] [address] [place] [address] Dr. Allie Cummings BASO # 0.0 103/ul Normal 0.0-0.1 [facility] Comment on above: Performed By: #### 4 [id number] #### [facility] [address] [place] [address] Dr. Allie Cummings Basophils/100 WBC (Bld) 0.3 % Normal 0.2-2.0 [facility] Comment on above: Performed By: #### 4 [id number] #### [facility] [address] [place] [address] Dr. Allie Cummings EO # 0.1 103/ul Normal 0.0-0.7 [facility] Comment on above: Performed By: #### 4 [id number] #### [facility] [address] [place] [address] Dr. Allei Cummings Eosinophils/100 WBC (Bld) 0.7 % Critically low 0.9-7.0 [facility] Comment on above: Performed By: #### 4 [id number] #### [facility] [address] [place] [address] Dr. Allie Cummings Erythrocyte distribution width (RBC) [Ratio] 26.3 % Critically high 11.0-15.0 [facility] Comment on above: Performed By: #### 4 [id number] #### [facility] [address] [place] [address] Dr. Allie Cummings Hematocrit (Bld) [Volume fraction] 27.4 % Critically low 36.0-48.0 [facility] Comment on above: Performed By: #### 4 [id number] #### [facility] [address] [place] [address] Dr. Allie Cummings Hemoglobin (Bld) [Mass/Vol] 7.8 g/dL Critically low 12.0-16.0 [facility] Comment on above: Performed By: #### 4 [id number] #### [facility] [address] [place] [address] Dr. Allie Cummings IG # 0.07 10e3/ul Critically high 0.00-0.03 [facility] Comment on above: Performed By: #### 4 [id number] #### [facility] [address] [place] [address] Dr. Allie Cummings IG % 0.7 % Critically high 0.0-0.5 [facility] Comment on above: Performed By: #### 4 [id number] #### [facility] [address] [place] [address] Dr. Allie Cummings LYMPH # 1.2 103/ul Normal 1.2-3.8 [facility] Comment on above: Performed By: #### 4 [id number] #### [facility] [address] [place] [address] Dr. Allie Cummings Lymphocytes/100 WBC (Bld) 11.2 % Critically low 20.5-60.0 [facility] Comment on above: Performed By: #### 4 [id number] #### [facility] [address] [place] [address] Dr. Allie Cummings MANUAL DIFF REQ NO Normal [facility] Comment on above: Performed By: #### 4 [id number] #### [facility] [address] [place] [address] Dr. Allie Cummings MCH (RBC) [Entitic mass] 19.4 pg Critically low 26.7-34.0 [facility] Comment on above: Performed By: #### 4 [id number] #### [facility] [address] [place] [address] Dr. Allie Cummings MCHC (RBC) [Mass/Vol] 28.5 g/dL Critically low 29.9-35.2 [facility] Comment on above: Performed By: #### 4 [id number] #### [facility] [address] [place] [address] Dr. Allie Cummings MCV (RBC) [Entitic vol] 68.0 fL Critically low 81.0-99.0 [facility] Comment on above: Performed By: #### 4 [id number] #### [facility] [address] [place] [address] Dr. Allie Cummings MONO # 0.2 103/ul Critically low 0.3-0.8 [facility] Comment on above: Performed By: #### 4 [id number] #### [facility] [address] [place] [address] Dr. Allie Cummings Monocytes/100 WBC (Bld) 1.6 % Critically low 1.7-12.0 [facility] Comment on above: Performed By: #### 4 [id number] #### [facility] [address] [place] [address] Dr. Allie Cummings NEUT # 9.1 103/ul Critically high 1.4-6.5 [facility] Comment on above: Performed By: #### 4 [id number] #### [facility] [address] [place] [address] Dr. Allie Cummings Neutrophils/100 WBC (Bld) 85.5 % Critically high 43.0-75.0 [facility] Comment on above: Performed By: #### 4 [id number] #### [facility] [address] [place] [address] Dr. Allie Cummings PLT 215 103/ul Normal 150-450 [facility] Comment on above: Performed By: #### 4 [id number] #### [facility] [address] [place] [address] Dr. Allie Cummings RBC 4.03 106/ul Critically low 4.20-5.40 [facility] Comment on above: Performed By: #### 4 [id number] #### [facility] [address] [place] [address] Dr. Allie Cummings WBC 10.6 103/ul Normal 4.0-11.0 [facility] Comment on above: Performed By: #### 4 [id number] #### [facility] [address] [address] [address] Allie Cummings BASO # 0.1 103/ul Normal 0.0-0.1 [facility] Comment on above: Performed By: #### 4 [id number] #### [facility] [address] [address] [address] Allie Cummings Basophils/100 WBC (Bld) 0.6 % Normal 0.2-2.0 [facility] Comment on above: Performed By: #### 4 [id number] #### [facility] [address] [place] [address] Dr. Allie Cummings EO # 0.2 103/ul Normal 0.0-0.7 [facility] Comment on above: Performed By: #### 4 [id number] #### [facility] [address] [place] [address] Dr. Allie Cummings Eosinophils/100 WBC (Bld) 2.7 % Normal 0.9-7.0 [facility] Comment on above: Performed By: #### 4 [id number] #### [facility] [address] [place] [address] Dr. Allie Cummings Erythrocyte distribution width (RBC) [Ratio] 26.2 % Critically high 11.0-15.0 [facility] Comment on above: Performed By: #### 4 [id number] #### [facility] [address] [place] [address] Dr. Allie Cummings Hematocrit (Bld) [Volume fraction] 26.7 % Critically low 36.0-48.0 [facility] Comment on above: Performed By: #### 4 [id number] #### [facility] [address] [place] [address] Dr. Allie Cummings Hemoglobin (Bld) [Mass/Vol] 7.6 g/dL Critically low 12.0-16.0 [facility] Comment on above: Performed By: #### 4 [id number] #### [facility] [address] [place] [address] Dr. Allie Cummings IG # 0.06 10e3/ul Critically high 0.00-0.03 [facility] Comment on above: Performed By: #### 4 [id number] #### [facility] [address] [place] [address] Dr. Allie Cummings IG % 0.8 % Critically high 0.0-0.5 [facility] Comment on above: Performed By: #### 4 [id number] #### [facility] [facility] [address] [place] [address] Dr. Allie Cummings LYMPH # 2.1 103/ul Normal 1.2-3.8 [facility] Comment on above: Performed By: #### [id number] #### [facility] [address] [place] [address] Dr. Allie Cummings Lymphocytes/100 WBC (Bld) 27.1 % Normal 20.5-60.0 [facility] Comment on above: Performed By: #### [id number] #### [facility] [address] [place] [address] Dr. Allie Cummings MANUAL DIFF REQ NO Normal [facility] Comment on above: Performed By: #### 4 [id number] #### [facility] [address] [place] [address] Dr. Allie Cummings MCH (RBC) [Entitic mass] 19.4 pg Critically low 26.7-34.0 [facility] Comment on above: Performed By: #### 4 [id number] #### [facility] [address] [place] [address] Dr. Allie Cummings MCHC (RBC) [Mass/Vol] 28.5 g/dL Critically low 29.9-35.2 [facility] Comment on above: Performed By: #### 4 [id number] #### [facility] [address] [place] [address] Dr. Allie Cummings MCV (RBC) [Entitic vol] 68.3 fL Critically low 81.0-99.0 [facility] Comment on above: Performed By: #### 4 [id number] #### [facility] [address] [place] [address] Dr. Allie Cummings MONO # 0.4 103/ul Normal 0.3-0.8 [facility] Comment on above: Performed By: #### 4 [id number] #### [facility] [address] [place] [address] Dr. Allie Cummings Monocytes/100 WBC (Bld) 5.0 % Normal 1.7-12.0 [facility] Comment on above: Performed By: #### 4 [id number] #### [facility] [address] [place] [address] Dr. Allie Cummings NEUT # 5.0 103/ul Normal 1.4-6.5 [facility] Comment on above: Performed By: #### 4 [id number] #### [facility] [address] [place] [address] Dr. Allie Cummings Neutrophils/100 WBC (Bld) 63.8 % Normal 43.0-75.0 [facility] Comment on above: Performed By: #### [id number] #### [facility] [address] [place] [address] Dr. Allie Cummings PLT 197 103/ul Normal 150-450 [facility] Comment on above: Performed By: #### 4 [id number] #### [facility] [address] [place] [address] Dr. Allie Cummings RBC 3.91 106/ul Critically low 4.20-5.40 [facility] Comment on above: Performed By: #### 4 [id number] #### [facility] [address] [place] [address] Dr. Allie Cummings WBC 7.8 103/ul Normal 4.0-11.0 [facility] Comment on above: Performed By: #### 4 [id number] #### [facility] [address] [place] [address] Dr. Allie KHANO # 0.1 103/ul Normal 0.0-0.1 [facility] Comment on above: Performed By: #### C BC #### [facility] [address] [address] [address] Allie Cummings Basophils/100 WBC (Bld) 0.6 % Normal 0.2-2.0 [facility] Comment on above: Performed By: #### C BC #### [facility] [address] [address] [address] Allie Cummings EO # 0.2 103/ul Normal 0.0-0.7 [facility] Comment on above: Performed By: #### C BC #### [facility] [address] [place] [address] Dr. Allie Cummings Eosinophils/100 WBC (Bld) 2.5 % Normal 0.9-7.0 [facility] Comment on above: Performed By: #### C BC #### [facility] [address] [place] [address] Dr. Allie Cummings Erythrocyte distribution width (RBC) [Ratio] 25.8 % Critically high 11.0-15.0 [facility] Comment on above: Performed By: #### C BC #### [facility] [address] [place] [address] Dr. Allie Cummings Hematocrit (Bld) [Volume fraction] 26.5 % Critically low 36.0-48.0 [facility] Comment on above: Performed By: #### C BC #### [facility] [address] [place] [address] Dr. Allie Cummings Hemoglobin (Bld) [Mass/Vol] 7.6 g/dL Critically low 12.0-16.0 [facility] Comment on above: Performed By: #### C BC #### [facility] [address] [place] [address] Dr. Allie Cummings IG # 0.04 10e3/ul Critically high 0.00-0.03 [facility] Comment on above: Performed By: #### C BC #### [facility] [address] [place] [address] Dr. Allie Cummings IG % 0.4 % Normal 0.0-0.5 [facility] Comment on above: Performed By: #### C BC #### [facility] [address] [place] [address] Dr. Allie Cummings LYMPH # 2.4 103/ul Normal 1.2-3.8 [facility] Comment on above: Performed By: #### C BC #### [facility] [address] [place] [address] Dr. Allie Cummings Lymphocytes/100 WBC (Bld) 25.6 % Normal 20.5-60.0 [facility] Comment on above: Performed By: #### C BC #### [facility] [address] [place] [address] Dr. Allie Cummings MANUAL DIFF REQ NO Normal [facility] Comment on above: Performed By: #### C BC #### [facility] [address] [place] [address] Dr. Allie Cummings MCH (RBC) [Entitic mass] 19.3 pg Critically low 26.7-34.0 [facility] Comment on above: Performed By: #### C BC #### [facility] [address] [place] [address] Dr. Allie Cummings MCHC (RBC) [Mass/Vol] 28.7 g/dL Critically low 29.9-35.2 [facility] Comment on above: Performed By: #### C BC #### [facility] [address] [place] [address] Dr. Allie Cummings MCV (RBC) [Entitic vol] 67.4 fL Critically low 81.0-99.0 [facility] Comment on above: Performed By: #### C BC #### [facility] [address] [place] [address] Dr. Allie Cummings MONO # 0.5 103/ul Normal 0.3-0.8 [facility] Comment on above: Performed By: #### C BC #### [facility] [address] [place] [address] Dr. Allie Cummings Monocytes/100 WBC (Bld) 5.4 % Normal 1.7-12.0 [facility] Comment on above: Performed By: #### C BC #### [facility] [address] [place] [address] Dr. Allie Cummings NEUT # 6.1 103/ul Normal 1.4-6.5 [facility] Comment on above: Performed By: #### C BC #### [facility] [address] [place] [address] Dr. Allie Cummings Neutrophils/100 WBC (Bld) 65.5 % Normal 43.0-75.0 [facility] Comment on above: Performed By: #### C BC #### [facility] [address] [place] [address] Dr. Allie Cummings PLT 202 103/ul Normal 150-450 [facility] Comment on above: Performed By: #### C BC #### [facility] [address] [place] [address] Dr. Allie Cummings RBC 3.93 106/ul Critically low 4.20-5.40 [facility] Comment on above: Performed By: #### C BC #### [facility] [address] [place] [address] Dr. Allie Cummings WBC 9.4 103/ul Normal 4.0-11.0 [facility] Comment on above: Performed By: #### C BC #### [facility] [address] [place] [address] Dr. Allie Cummings PROF 14(COMP METB)on 023 Albumin [Mass/Vol] 3.0 g/dL Critically low 3.4-5.0 [facility] Comment on above: Performed By: #### C BC #### [facility] [address] [place] [address] Dr. Allie Cummings Albumin/Globulin [Mass ratio] 0.8 {ratio} Normal [facility] Comment on above: Performed By: #### C BC #### [facility] [address] [place] [address] Dr. Allie Cummings ALP [Catalytic activity/Vol] 65 U/L Normal 46-116 [facility] Comment on above: Performed By: #### C BC #### [facility] [address] [place] [address] Dr. Allie Cummings ALT [Catalytic activity/Vol] 10 U/L Critically low 14-59 [facility] Comment on above: Performed By: #### C BC #### [facility] [address] [place] [address] Dr. Allie Cummings Anion gap [Moles/Vol] 11.9 mmol/L Normal [facility] Comment on above: Performed By: #### C BC #### [facility] [address] [address] [address] Allie Cummings AST [Catalytic activity/Vol] 8 U/L Critically low 15-37 [facility] Comment on above: Performed By: #### C BC #### [facility] [address] [place] [address] Dr. Allie Cummings Bilirubin [Mass/Vol] 0.5 mg/dL Normal 0.2-1.0 [facility] Comment on above: Performed By: #### C BC #### [facility] [address] [place] [address] Dr. Allie Cummings Calcium [Mass/Vol] 8.2 mg/dL Critically low 8.5-10.1 [facility] Comment on above: Performed By: #### C BC #### [facility] [address] [place] [address] Dr. Allie Cummings Chloride [Moles/Vol] 107 mmol/L Normal 98-107 [facility] Comment on above: Performed By: #### C BC #### [facility] [address] [place] [address] Dr. Allie Cummings CO2 [Moles/Vol] 28.0 mmol/L Normal 21.0-32.0 [facility] Comment on above: Performed By: #### C BC #### [facility] [address] [place] [address] Dr. Allie Cummings Creatinine [Mass/Vol] 0.80 mg/dL Normal 0.55-1.02 [facility] Comment on above: Performed By: #### C BC #### [facility] [address] [place] [address] Dr. Allie Cummings EGFR-AF ENGLISH >60 Normal >=60 [facility] Comment on above: Performed By: #### C BC #### [facility] [address] [address] [address] Allie Cummings EGFR-NON AF ENGLISH >60 Normal >=60 [facility] Comment on above: Performed By: #### C BC #### [facility] [address] [address] [address] Allie Cummings Globulin (S) [Mass/Vol] 3.6 g/dL Normal [facility] Comment on above: Performed By: #### C BC #### [facility] [address] [address] [address] Allie Cummings Glucose [Mass/Vol] 102 mg/dL Normal 74-106 [facility] Comment on above: Performed By: #### C BC #### [facility] [address] [place] [address] Dr. Allie Cummings Potassium [Moles/Vol] 3.9 mmol/L Normal 3.5-5.1 [facility] Comment on above: Performed By: #### C BC #### [facility] [address] [place] [address] Dr. Allie Cummings Protein [Mass/Vol] 6.6 g/dL Normal 6.4-8.2 [facility] Comment on above: Performed By: #### C BC #### [facility] [address] [place] [address] Dr. Allie Cummings Sodium [Moles/Vol] 143 mmol/L Normal 136-145 [facility] Comment on above: Performed By: #### C BC #### [facility] [address] [place] [address] Dr. Allie Cummings Urea nitrogen [Mass/Vol] 12.0 mg/dL Normal 7.0-18.0 [facility] Comment on above: Performed By: #### C BC #### [facility] [address] [place] [address] Dr. Allie Cummings Urea nitrogen/Creatinine [Mass ratio] 15.0 mg/mg Normal [facility] Comment on above: Performed By: #### C BC #### [facility] [address] [place] [address] Dr. Allie Cummings PROTIMEon 08-26-2022 INR Coag (PPP) [Relative time] 0.98 {INR} Normal [facility] Comment on above: Performed By: #### C BC #### [facility] [address] [place] [address] Dr. Allie Cummings INR GUIDELINES SEE BELOW Normal [facility] Comment on above: Result Comment: LULI RED INR: 2.0 - 3.0 CONDITIONS NOT LISTED BELOW 2.5 - 3.5 FOR PROSTHETIC HEART VALVE REPLACEMENT 2.5 - 3.5 RECURRENT THROMBOSIS Performed By: #### C BC #### [facility] [address] [place] [address] Dr. Allie Cummings PT Coag (PPP) [Time] 10.4 s Normal 9.0-11.6 [facility] Comment on above: Performed By: #### C BC #### [facility] [address] [place] [address] Dr. Allie Cummings PTTon 08-26-2022 aPTT Coag (Bld) [Time] 24.4 s Normal 22.3-36.2 [facility] Comment on above: Performed By: #### C BC #### [facility] [address] [place] [address] Dr. Allie Cummings ABO RH RETYPEon 08-25-2022 ABO and Rh group Nom (Bld) DONE Normal [facility] Comment on above: Performed By: #### C BC #### [facility] [address] [place] [address] Dr. Allie Cummings CBC AUTO DIFFon 08-25-2022 BASO # 0.1 103/ul Normal 0.0-0.1 [facility] Comment on above: Performed By: #### 4 [id number] #### [facility] [address] [place] [address] Dr. Allie Cummings Basophils/100 WBC (Bld) 0.7 % Normal 0.2-2.0 [facility] Comment on above: Performed By: #### 4 [id number] #### [facility] [address] [place] [address] Dr. Allie Cummings EO # 0.2 103/ul Normal 0.0-0.7 [facility] Comment on above: Performed By: #### 4 [id number] #### [facility] [address] [place] [address] Dr. Allie Cummings Eosinophils/100 WBC (Bld) 1.8 % Normal 0.9-7.0 [facility] Comment on above: Performed By: #### 4 [id number] #### [facility] [address] [place] [address] Dr. Allie Cummings Erythrocyte distribution width (RBC) [Ratio] 25.6 % Critically high 11.0-15.0 [facility] Comment on above: Performed By: #### 4 [id number] #### [facility] [address] [place] [address] Dr. Allie Cummings Hematocrit (Bld) [Volume fraction] 29.0 % Critically low 36.0-48.0 [facility] Comment on above: Performed By: #### 4 [id number] #### [facility] [address] [place] [address] Dr. Allie Cummings Hemoglobin (Bld) [Mass/Vol] 8.3 g/dL Critically low 12.0-16.0 [facility] Comment on above: Performed By: #### 4 [id number] #### [facility] [address] [place] [address] Dr. Allie Cummings IG # 0.05 10e3/ul Critically high 0.00-0.03 [facility] Comment on above: Performed By: #### 4 [id number] #### [facility] [address] [place] [address] Dr. Allie Cummings IG % 0.5 % Normal 0.0-0.5 [facility] Comment on above: Performed By: #### 4 [id number] #### [facility] [address] [place] [address] Dr. Allie Cummings LYMPH # 1.9 103/ul Normal 1.2-3.8 [facility] Comment on above: Performed By: #### 4 [id number] #### [facility] [address] [place] [address] Dr. Allie Cummings Lymphocytes/100 WBC (Bld) 17.6 % Critically low 20.5-60.0 [facility] Comment on above: Performed By: #### 4 [id number] #### [facility] [address] [place] [address] Dr. Allie Cummings MANUAL DIFF REQ NO Normal [facility] Comment on above: Performed By: #### [id number] #### [facility] [address] [place] [address] Dr. Allie Cummings MCH (RBC) [Entitic mass] 19.3 pg Critically low 26.7-34.0 [facility] Comment on above: Performed By: #### 4 [id number] #### [facility] [address] [place] [address] Dr. Allie Cummings MCHC (RBC) [Mass/Vol] 28.6 g/dL Critically low 29.9-35.2 [facility] Comment on above: Performed By: #### 4 [id number] #### [facility] [address] [place] [address] Dr. Allie Cummings MCV (RBC) [Entitic vol] 67.4 fL Critically low 81.0-99.0 [facility] Comment on above: Performed By: #### 4 [id number] #### [facility] [address] [place] [address] Dr. Allie Cummings MONO # 0.7 103/ul Normal 0.3-0.8 [facility] Comment on above: Performed By: #### 4 [id number] #### [facility] [address] [place] [address] Dr. Allie Cummings Monocytes/100 WBC (Bld) 6.9 % Normal 1.7-12.0 [facility] Comment on above: Performed By: #### 4 [id number] #### [facility] [address] [place] [address] Dr. Allie Cummings NEUT # 7.8 103/ul Critically high 1.4-6.5 [facility] Comment on above: Performed By: #### 4 [id number] #### [facility] [address] [place] [address] Dr. Allie Cummings Neutrophils/100 WBC (Bld) 72.5 % Normal 43.0-75.0 [facility] Comment on above: Performed By: #### 4 [id number] #### [facility] [address] [place] [address] Dr. Allie Cummings PLT 219 103/ul Normal 150-450 [facility] Comment on above: Performed By: #### 4 [id number] #### [facility] [address] [place] [address] Dr. Allie Cummings RBC 4.30 106/ul Normal 4.20-5.40 [facility] Comment on above: Performed By: #### 4 [id number] #### [facility] [address] [place] [address] Dr. Allie Cummings WBC 10.7 103/ul Normal 4.0-11.0 [facility] Comment on above: Performed By: #### 4 [id number] #### [facility] [address] [place] [address] Dr. Allie Cummings BASO # 0.1 103/ul Normal 0.0-0.1 [facility] Comment on above: Performed By: #### C BC #### [facility] [address] [place] [address] Dr. Allie Cummings Basophils/100 WBC (Bld) 0.6 % Normal 0.2-2.0 [facility] Comment on above: Performed By: #### C BC #### [facility] [address] [place] [address] Dr. Allie Cummings EO # 0.2 103/ul Normal 0.0-0.7 [facility] Comment on above: Performed By: #### C BC #### [facility] [address] [place] [address] Dr. Allie Cummings Eosinophils/100 WBC (Bld) 1.6 % Normal 0.9-7.0 [facility] Comment on above: Performed By: #### C BC #### [facility] [address] [place] [address] Dr. Allie Cummings Erythrocyte distribution width (RBC) [Ratio] 19.6 % Critically high 11.0-15.0 [facility] Comment on above: Performed By: #### C BC #### [facility] [address] [place] [address] Dr. Allie Cummings Hematocrit (Bld) [Volume fraction] 23.4 % Critically low 36.0-48.0 [facility] Comment on above: Performed By: #### C BC #### [facility] [address] [place] [address] Dr. Allie Cummings Hemoglobin (Bld) [Mass/Vol] 5.7 g/dL Critically low 12.0-16.0 [facility] Comment on above: Performed By: #### C BC #### [facility] [address] [place] [address] Dr. Allie Cummings IG # 0.06 10e3/ul Critically high 0.00-0.03 [facility] Comment on above: Performed By: #### C BC #### [facility] [address] [place] [address] Dr. Allie Cummings IG % 0.6 % Critically high 0.0-0.5 [facility] Comment on above: Performed By: #### C BC #### [facility] [address] [place] [address] Dr. Allie Cummings LYMPH # 2.7 103/ul Normal 1.2-3.8 [facility] Comment on above: Performed By: #### C BC #### [facility] [address] [place] [address] Dr. Allie Cummings Lymphocytes/100 WBC (Bld) 24.4 % Normal 20.5-60.0 [facility] Comment on above: Performed By: #### C BC #### [facility] [address] [place] [address] Dr. Allie Cummings MANUAL DIFF REQ NO Normal [facility] Comment on above: Performed By: #### C BC #### [facility] [address] [place] [address] Dr. Allie Cummings MCH (RBC) [Entitic mass] 15.2 pg Critically low 26.7-34.0 [facility] Comment on above: Performed By: #### C BC #### [facility] [address] [place] [address] Dr. Allie Cummings MCHC (RBC) [Mass/Vol] 24.4 g/dL Critically low 29.9-35.2 [facility] Comment on above: Performed By: #### C BC #### [facility] [address] [address] [address] Allie Cummings MCV (RBC) [Entitic vol] 62.2 fL Critically low 81.0-99.0 [facility] Comment on above: Performed By: #### C BC #### [facility] [address] [place] [address] Dr. Allie Cummings MONO # 0.7 103/ul Normal 0.3-0.8 [facility] Comment on above: Performed By: #### C BC #### [facility] [address] [place] [address] Dr. Allie Cummings Monocytes/100 WBC (Bld) 6.3 % Normal 1.7-12.0 [facility] Comment on above: Performed By: #### C BC #### [facility] [address] [place] [address] Dr. Allie Cummings NEUT # 7.3 103/ul Critically high 1.4-6.5 [facility] Comment on above: Performed By: #### C BC #### [facility] [address] [place] [address] Dr. Allie Cummings Neutrophils/100 WBC (Bld) 66.5 % Normal 43.0-75.0 [facility] Comment on above: Performed By: #### C BC #### [facility] [address] [place] [address] Dr. Allie Cummings Platelet mean volume (Bld) [Entitic vol] 10.1 fL Normal 9.5-13.5 [facility] Comment on above: Performed By: #### C BC #### [facility] [address] [place] [address] Dr. Allie Cummings PLT 261 103/ul Normal 150-450 [facility] Comment on above: Performed By: #### C BC #### [facility] [address] [place] [address] Dr. Allie Cummings RBC 3.76 106/ul Critically low 4.20-5.40 [facility] Comment on above: Performed By: #### C BC #### [facility] [address] [place] [address] Dr. Allie Cummings WBC 10.9 103/ul Normal 4.0-11.0 [facility] Comment on above: Performed By: #### C BC #### [facility] [address] [place] [address] Dr. Allie Cummings Covid-19 PCR ([facility])on 08-12 SARS-CoV-2 (COVID-19) RNA LEESA+probe Ql (Unsp spec) Not detected Normal NOT DETECTED [facility] Comment on above: Result Comment: When diagnostic testing is negative, the possibility of a false negative should be considered in the context of a patient's recent exposures and the presence of clinical signs and symptoms consistent with SARS-CoV-2. This test is not yet approved or cleared by the [place] FDA. When there are no FDA-approved or cleared tests available, and other criteria are met, FDA can make tests available under an emergency access mechanism called an Emergency Use Authorization (EUA). The EUA for this test is supported by the Chiropractic Neurologist of Health and Human Service's declaration that circumstances exist to justify the emergency use of in vitro diagnostics for the detection and/or diagnosis of the virus that causes COVID-19. This EUA will remain in effect for the duration of the COVID-19 declaration justifying emergency of IVDs, unless it is terminated or revoked by the FDA (after which the test may no longer be used). Performed By: #### 4 [id number] #### [facility] [address] [place] [address] Dr. Allie Cummings ER URINE PROFILEon 3 Bilirubin Ql (U) Negative Normal NEGATIVE [facility] Comment on above: Performed By: #### U MICRO, ERUR, PREGU #### [facility] [address] [address] Dr. Allie Cummings Clarity (U) CLEAR Normal CLEAR [facility] Comment on above: Performed By: #### U MICRO, ERUR, PREGU #### [facility] [address] [address] [address] Allie Cummings Color (U) RED Abnormal YELLOW [facility] Comment on above: Performed By: #### U MICRO, ERUR, PREGU #### [facility] [address] [address] [address] Allie LUCIOD A micrscopic examina tion will be performed if indicated. Normal [facility] Comment on above: Performed By: #### U MICRO, ERUR, PREGU #### [facility] [address] [place] [address] Dr. Allie Cummings Glucose Ql (U) Negative Normal NEGATIVE [facility] Comment on above: Performed By: #### U MICRO, ERUR, PREGU #### [facility] [address] [address] [address] Allie Cummings Hemoglobin Ql (U) LARGE Abnormal NEGATIVE [facility] Comment on above: Performed By: #### U MICRO, ERUR, PREGU #### [facility] [address] [place] [address] Dr. Allie Cummings Ketones Ql (U) TRACE Abnormal NEGATIVE [facility] Comment on above: Performed By: #### U MICRO, ERUR, PREGU #### [facility] [address] [place] [address] Dr. Allie Cummings LEUKOCYTES TRACE Abnormal NEGATIVE [facility] Comment on above: Performed By: #### U MICRO, ERUR, PREGU #### [facility] [address] [place] [address] Dr. Allie Cummings Nitrite Ql (U) Positive Abnormal NEGATIVE [facility] Comment on above: Performed By: #### U MICRO, ERUR, PREGU #### [facility] [address] [place] [address] Dr. Allie Cummings pH (U) 5.0 [pH] Normal 5-9 [facility] Comment on above: Performed By: #### U MICRO, ERUR, PREGU #### [facility] [address] [place] [address] Dr. Allie Cummings SPEC GRAVITY >=1.030 Abnormal 1.005-<=1.0 25 [facility] Comment on above: Performed By: #### U MICRO, ERUR, PREGU #### [facility] [address] [place] [address] Dr. Allie Cummings UA PROTEIN >300 Abnormal NEGATIVE/ TRACE [facility] Comment on above: Performed By: #### U MICRO, ERUR, PREGU #### [facility] [address] [place] [address] Dr. Allie Cummings UR MICRO IND INDICATED Normal [facility] Comment on above: Performed By: #### U MICRO, ERUR, PREGU #### [facility] [address] [place] [address] Dr. Allie Cummings Urobilinogen Qn (U) 1.0 {Daphnie'U}/dL Normal 0.2 - 1. 0 [facility] Comment on above: Performed By: #### U MICRO, ERUR, PREGU #### [facility] [address] [place] [address] Dr. Allie Cummings FERRITINon 08-25-2022 Ferritin [Mass/Vol] 2.0 ng/mL Critically low 6.2-137.0 [facility] Comment on above: Performed By: #### C BC #### [facility] [address] [place] [address] Dr. Allie Cummings FREE T4on 08-25-2022 Free T4 [Mass/Vol] 0.75 ng/dL Critically low 0.76-1.46 [facility] Comment on above: Performed By: #### U MICRO, ERUR, PREGU #### [facility] [address] [place] [address] Dr. Allie Cummings HEMOGLOBIN AND HEMATOCRITon 08-25-2022 Hematocrit (Bld) [Volume fraction] 26.0 % Critically low 36.0-48.0 [facility] Comment on above: Performed By: #### C BC #### [facility] [address] [place] [address] Dr. Allie Cummings Hemoglobin (Bld) [Mass/Vol] 7.0 g/dL Critically low 12.0-16.0 [facility] Comment on above: Performed By: #### C BC #### [facility] [address] [place] [address] Dr. Allie Cummings Hematocrit (Bld) [Volume fraction] 23.3 % Critically low 36.0-48.0 [facility] Comment on above: Performed By: #### H GBHCT #### [facility] [address] [place] [address] Dr. Allie Cummings Hemoglobin (Bld) [Mass/Vol] 5.8 g/dL Critically low 12.0-16.0 [facility] Comment on above: Performed By: #### H GBHCT #### [facility] [address] [place] [address] Dr. Allie Cummings IRON AND TIBCon 08-25-2022 % SATURATION 2.3 % Normal [facility] Comment on above: Performed By: #### C BC #### [facility] [address] [place] [address] Dr. Allie Cummings Iron [Mass/Vol] 10.0 ug/dL Critically low 50.0-170.0 [facility] Comment on above: Performed By: #### C BC #### [facility] [address] [place] [address] Dr. Allie Cummings TIBC DIRECT 431.0 ug/dL Normal 250.0-450.0 [facility] Comment on above: Performed By: #### C BC #### [facility] [address] [place] [address] Dr. Allie Cummings URon 08-25-2022 , QUAL Negative Normal NEGATIVE [facility] Comment on above: Performed By: #### U MICRO, ERUR, PREGU #### [facility] [address] [place] [address] Dr. Allie Cummings PROF CHEM 8 (BAS METB)on Anion gap [Moles/Vol] 10.9 mmol/L Normal [facility] Comment on above: Performed By: #### B MP #### [facility] [address] [place] [address] Dr. Allie Cummings Calcium [Mass/Vol] 8.5 mg/dL Normal 8.5-10.1 [facility] Comment on above: Performed By: #### B MP #### [facility] [address] [address] [address] Allie Cummings Chloride [Moles/Vol] 106 mmol/L Normal 98-107 [facility] Comment on above: Performed By: #### B MP #### [facility] [address] [place] [address] Dr. Allie Cummings CO2 [Moles/Vol] 28.9 mmol/L Normal 21.0-32.0 [facility] Comment on above: Performed By: #### B MP #### [facility] [address] [place] [address] Dr. Allie Cummings Creatinine [Mass/Vol] 0.92 mg/dL Normal 0.55-1.02 [facility] Comment on above: Performed By: #### B MP #### [facility] [address] [place] [address] Dr. Allie Cummings EGFR-AF ENGLISH >60 Normal >=60 [facility] Comment on above: Performed By: #### B MP #### [facility] [address] [place] [address] Dr. Allie Cummings EGFR-NON AF ENGLISH >60 Normal >=60 [facility] Comment on above: Performed By: #### B MP #### [facility] [address] [place] [address] Dr. Allie Cummings Glucose [Mass/Vol] 96 mg/dL Normal 74-106 [facility] Comment on above: Performed By: #### B MP #### [facility] [address] [place] [address] Dr. Allie Cummings Potassium [Moles/Vol] 3.8 mmol/L Normal 3.5-5.1 [facility] Comment on above: Performed By: #### B MP #### [facility] [address] [place] [address] Dr. Allie Cummings Sodium [Moles/Vol] 142 mmol/L Normal 136-145 [facility] Comment on above: Performed By: #### B MP #### [facility] [address] [place] [address] Dr. Allie Cummings Urea nitrogen [Mass/Vol] 14.0 mg/dL Normal 7.0-18.0 [facility] Comment on above: Performed By: #### B MP #### [facility] [address] [place] [address] Dr. Allie Cummings Urea nitrogen/Creatinine [Mass ratio] 15.2 mg/mg Normal [facility] Comment on above: Performed By: #### B MP #### [facility] [address] [place] [address] Dr. Allie Cummings TSH W/ REFLEX TO FT4on 08-25 TSH 4.575 uIU/mL Critically high 0.358-3.740 [facility] Comment on above: Performed By: #### U MICRO, ERUR, PREGU #### [facility] [address] [place] [address] Dr. Allie Cummings TYPE AND SCREENon 08-25-2022 TYPE AND SCREEN Negative Normal [facility] Comment on above: Performed By: #### [id number] #### [facility] [address] [place] [address] Dr. Allie Cummings URINE MICROSCOPIC ONLYon BACTERIA SMALL Abnormal NONE SEEN [facility] Comment on above: Performed By: #### U MICRO, ERUR, PREGU #### [facility] [address] [place] [address] Dr. Allie Cummings Bacteria identified Cx Nom (U) INDICATED Normal [facility] Comment on above: Performed By: #### U MICRO, ERUR, PREGU #### [facility] [address] [place] [address] Dr. Allie Cummings CAST NONE SEEN Normal NONE SEEN [facility] Comment on above: Performed By: #### U MICRO, ERUR, PREGU #### [facility] [address] [address] [address] Allie Cummings Crystals LM Nom (Urine sed) NONE SEEN Normal NONE SEEN [facility] Comment on above: Performed By: #### U MICRO, ERUR, PREGU #### [facility] [address] [address] [address] Allie Cummings Epithelial cells LM Ql (Urine sed) RARE Normal NONE SEEN /RARE [facility] Comment on above: Performed By: #### U MICRO, ERUR, PREGU #### [facility] [address] [address] [address] Allie Cummings MUCOUS NONE SEEN Normal NONE SEEN [facility] Comment on above: Performed By: #### U MICRO, ERUR, PREGU #### [facility] [address] [address] [address] Allie Cummings RBC (U) [#/Vol] /uL Abnormal 0-2 [facility] Comment on above: Performed By: #### U MICRO, ERUR, PREGU #### [facility] [address] [address] [address] Allie Cummings WBC NONE SEEN Normal NONE SEEN [facility] Comment on above: Performed By: #### U MICRO, ERUR, PREGU #### [facility] [address] [address] [address] Allie Cummings US PELVIS AND TRANSVAGon US PELVIS AND TRANSVAG EXAM: Pelvic ultrasound HISTORY: . Abdominal pain . COMPARISON: None. TECHNIQUE: Transabdominal and transvaginal scanning was performed FINDINGS: Scanning of the pelvis demonstrates uterus to measure 10.7 x 6.4 x 7.9 cm. Endometrial complex measures 2.5 cm in its maximal AP dimension. Right ovary measures 4.2 x 2.9 x 3.1 cm. Resistive indexes 0.44. There is a 4.2 x 3.1 x 2.9 cm simple cyst in the right ovary. Left ovary measures 3.9 x 2.8 x 3.3 cm. Color-flow is noted. Follicles are noted. There is a 2.2 x 1.6 cm dominant follicle/simple cyst in the left ovary. No fluid is noted in the cul-de-sac. IMPRESSION: 1. Endometrial complex is thickened measuring 2.5 cm in its maximal AP dimension. Findings could be due to the patient's menstrual cycle, endometrial hyperplasia, or less likely an endometrial neoplasm. 2. 4.2 x 2.9 cm simple cyst in the right ovary. 3. 2.2 x 1.6 cm dominant follicle/simple cyst in the left ovary. Electronically authenticated by: MALINI SOTO Date: 2022-08-25 08:06 Normal [facility] VITAMIN B12on 08-25-2022 Cobalamin (Vitamin B12) [Mass/Vol] 425.0 pg/mL Normal 193.0-986.0 [facility] Comment on above: Performed By: #### C BC #### [facility] [address] [address] [address] Allie Cummings PAP ACOG PANEL 2: 30 to 65on 06-01-2022 . . Normal [facility] Comment on above: Result Comment: Perf ormed at: WB Performed By: #### [id number] #### [facility] [address] [address] [address] Allie Cummings Age Gdln ACOG Testing 30-65 Normal [facility] Comment on above: Performed By: #### [id number] #### [facility] [address] [address] [address] Allie Cummings DIAGNOSIS: Comment Normal [facility] Comment on above: Result Comment: NEGA TIVE FOR INTRAEPITHELIAL LESION OR MALIGNANCY. SPECIMEN REPROCESSED FOR INTERPRETATION USING GLACIAL ACETIC ACID (GAA). Performed at: WB Performed By: #### [id number] #### [facility] [address] [address] [address] Allie Cummings HPV Aptima Negative Normal Negative [facility] Comment on above: Result Comment: This nucleic acid amplification test detects fourteen high-risk HPV types (16,18,31,33,35,39,45,51,52,56,58,59,66,68) without differentiation. Performed at: =G Performed By: #### [id number] #### [facility] [address] [place] [address] Dr. Allie Cummings HPV Genotype Reflex Comment Normal [facility] Comment on above: Result Comment: Crit jv not met, HPV Genotype not performed. Performed at: WB Performed By: #### [id number] #### [facility] [address] [place] [address] Dr. Allie Cummings Methodology: Comment Normal [facility] Comment on above: Result Comment: This liquid based ThinPrep(R) pap test was screened with the use of an image guided system. Performed at: WB Performed By: #### [id number] #### [facility] [address] [place] [address] Dr. Allie Cummings Note: Comment Normal [facility] Comment on above: Result Comment: The Pap smear is a screening test designed to aid in the detection of premalignant and malignant conditions of the uterine cervix. It is not a diagnostic procedure and should not be used as the sole means of detecting cervical cancer. Both false-positive and false-negative reports do occur. . Performed at: WB Performed By: #### [id number] #### [facility] [address] [place] [address] Dr. Allie Cummings Performed by: Comment Normal [facility] Comment on above: Result Comment: Preeti Reynolds, Potato Loader (ASCP) Performed at: WB Performed By: #### [id number] #### [facility] [address] [place] [address] Dr. Allie Cummings Specimen adequacy: Comment Normal [facility] Comment on above: Result Comment: Sati sfactory for evaluation. Endocervical and/or squamous metaplastic cells (endocervical component) are present. Areas of partially obscuring blood are present. Performed at: WB Performed By: #### [id number] #### [facility] [address] [place] [address] Dr. Allie Cummings Magnesiumon 11-12-2021 Magnesium [Mass/Vol] 5.0 mg/dL High 1.6-2.6 [facility] Comment on above: Performed By: #### M G #### [facility] [address] [facility] [place] [address] [employer] Attendant: Dale Walker, DO Interpretation and review of laboratory results Abnormal [facility] Magnesium [Mass/Vol] 5.0 mg/dL High 1.6 - 2 .6 mg/dL [facility] Magnesium [Mass/Vol] 5.4 mg/dL Critically high 1.6-2.6 [facility] Comment on above: Performed By: #### M G #### [facility] [address] [facility] [place] [address] [employer] Attendant: Dale Walker, Interpretation and review of laboratory results Abnormal [facility] Magnesium [Mass/Vol] 5.4 mg/dL Critically high 1.6 - 2.6 mg/dL [facility] Magnesium [Mass/Vol] 4.7 mg/dL High 1.6-2.6 [facility] Comment on above: Performed By: #### U MICAO, UHCG, UAX #### [facility] [address] [facility] [place] [address] [employer] Attendant: Dale Walker, DO Interpretation and review of laboratory results Abnormal [facility] Magnesium [Mass/Vol] 4.7 mg/dL High 1.6 - 2 .6 mg/dL [facility] Basic Metabolic Panelon 07-0 Anion gap [Moles/Vol] 12 mmol/L 9 - 17 mmol/L [facility] Calcium [Mass/Vol] 9.2 mg/dL 8.6 - 10. 4 mg/dL [facility] Chloride [Moles/Vol] 105 mmol/L 98 - 10 7 mmol/L [facility] CO2 [Moles/Vol] 24 mmol/L 20 - 31 mmol/L [facility] Creatinine [Mass/Vol] 0.71 mg/dL 0.50 - 0.90 mg/dL [facility] GFR >60 >60 mL/min [facility] GFR Non- >60 >60 mL/min [facility] GFR/1.73 sq M.predicted MDRD (S/P/Bld) [Vol rate/Area] [facility] Comment on above: Average GFR for 30-3 9 years old: 107 mL/min/1.73sq m Chronic Kidney Disease: <60 mL/min/1.73sq m Kidney failure: <15 mL/min/1.73sq m eGFR calculated using average adult body mass. Additional eGFR calculator available at: http://www.[employer]/multiple_crcl_2012.htm Glucose [Mass/Vol] 106 mg/dL High 70 - 99 mg/dL [facility] Interpretation and review of laboratory results Abnormal [facility] Potassium [Moles/Vol] 4.0 mmol/L 3.7 - 5.3 mmol/L [facility] Sodium [Moles/Vol] 141 mmol/L 135 - 144 mmol/L [facility] Urea nitrogen (BldV) [Mass/Vol] 10 mg/dL 6 - 20 mg/dL [facility] Basic Metabolic Profon 11-11 (cont.) Normal [facility] Comment on above: Result Comment: Aver age GFR for 30-39 years old: 107 mL/min/1.73sq m Chronic Kidney Disease: <60 mL/min/1.73sq m Kidney failure: <15 mL/min/1.73sq m eGFR calculated using average adult body mass. Additional eGFR calculator available at: http://www.[employer]/multiple_crcl_2012.htm Performed By: #### U JAYRO, GEOVANNAG, UAX #### [facility] [address] [facility] [place] [address] [employer] Attendant: Dale Walker DO Anion gap [Moles/Vol] 12 mmol/L Normal 9-17 [facility] Comment on above: Performed By: #### U JAYRO, MAHADCG, UAX #### [facility] [address] [facility] [place] [address] [employer] Attendant: Dale Walker DO Calcium [Mass/Vol] 9.2 mg/dL Normal 8.6-10.4 [facility] Comment on above: Performed By: #### U MICAO, UHCG, UAX #### [facility] [address] [place] [address] [employer] Attendant: Dale Walker DO Chloride [Moles/Vol] 105 mmol/L Normal 98-107 [facility] Comment on above: Performed By: #### U MICABautista, UHCG, UAX #### [facility] [place] [address] [employer] Attendant: Dale Walker DO CO2 [Moles/Vol] 24 mmol/L Normal 20-31 [facility] Comment on above: Performed By: #### U MICAO, UHCG, UAX #### [facility] [place] [address] [employer] Attendant: Dale Walker DO Creatinine [Mass/Vol] 0.71 mg/dL Normal 0.50-0.90 [facility] Comment on above: Performed By: #### U MICAO, UHCG, UAX #### [facility] [place] [address] [employer] Attendant: Dale Walker DO GFR, Amer >60 Normal >60 [facility] Comment on above: Performed By: #### U MICAO, UHCG, UAX #### [facility] [place] [address] [employer] Attendant: Dale Walker DO GFR,non Amer >60 Normal >60 [facility] Comment on above: Performed By: #### U MICAO, UHCG, UAX #### [facility] [address] [place] [address] [employer] Attendant: Dale Walker DO Glucose [Mass/Vol] 106 mg/dL High 70-99 [facility] Comment on above: Performed By: #### U MICAO, UHCG, UAX #### [facility] [address] [place] [address] [employer] Attendant: Dale Walker DO Potassium [Moles/Vol] 4.0 mmol/L Normal 3.7-5.3 [facility] Comment on above: Performed By: #### U MICAO, UHCG, UAX #### [facility] [place] [address] [employer] Attendant: Dale Walker DO Sodium [Moles/Vol] 141 mmol/L Normal 135-144 [facility] Comment on above: Performed By: #### U TARAO UHCG, UAX #### [facility] [place] [address] [employer] Attendant: Dale Walker DO Urea nitrogen [Mass/Vol] 10 mg/dL Normal 6-20 [facility] Comment on above: Performed By: #### U MICAO, UHCG, UAX #### [facility] [place] [address] [employer] Attendant: Dale Walker DO CBCon 11-11-2021 Erythrocyte distribution width (RBC) [Ratio] 15.3 % High 11.5-14.9 [facility] Comment on above: Performed By: #### U RC #### [facility] [place] [address] [employer] Attendant: Dale Walker DO [address] [address] [employer] Attendant: Jacob Ring MD Hematocrit (Bld) [Volume fraction] 33.3 % Low 36-46 [facility] Comment on above: Performed By: #### U RC #### [facility] [address] [place] [address] [employer] Attendant: Dale Walker [address] [address] [employer] Attendant: Jacob Ring MD Hemoglobin (Bld) [Mass/Vol] 10.9 g/dL Low 12.0-16.0 [facility] Comment on above: Performed By: #### U RC #### [facility] [address] [place] [address] [employer] Attendant: Dale Walker [address] [address] [employer] Attendant: Jacob Ring MD MCH (RBC) [Entitic mass] 28.3 pg Normal 26-34 [facility] Comment on above: Performed By: #### U RC #### [facility] [place] [address] [employer] Attendant: Dale Walker [address] [address] [employer] Attendant: Jacob Ring MD MCHC (RBC) [Mass/Vol] 32.8 g/dL Normal 31-37 [facility] Comment on above: Performed By: #### U RC #### [facility] [address] [place] [address] [employer] Attendant: Dale Walker [address] [address] [employer] Attendant: Jacob Ring MD MCV (RBC) [Entitic vol] 86.4 fL Normal 80-100 [facility] Comment on above: Performed By: #### U RC #### [facility] [place] [address] [employer] Attendant: Dale Walker [address] [address] [employer] Attendant: Jacob Ring MD Platelet mean volume (Bld) [Entitic vol] 9.0 fL Normal 6.0-12.0 [facility] Comment on above: Performed By: #### U RC #### [facility] [address] [place] [address] [employer] Attendant: Dale Walker [address] [address] [employer] Attendant: Jacob Ring MD Platelets (Bld) [#/Vol] 210 10*3/uL Normal 150-450 [facility] Comment on above: Performed By: #### U RC #### [facility] [address] [place] [address] [employer] Attendant: Dale Walker [address] [address] [employer] Attendant: Jacob Ring MD RBC (Bld) [#/Vol] 3.85 10*6/uL Low 4.0-5.2 [facility] Comment on above: Performed By: #### U RC #### [facility] [place] [address] [employer] Attendant: Dale Walker [address] [address] [employer] Attendant: Jacob Ring MD WBC (Bld) [#/Vol] 11.4 10*3/uL High 3.5-11.0 [facility] Comment on above: Performed By: #### U RC #### [facility] [address] [place] [address] [employer] Attendant: Dale Walker [address] [address] [employer] Attendant: Jacob Ring MD Hematocrit (Bld) [Volume fraction] 33.3 % Low 36 - 46 % [facility] Hemoglobin (Bld) [Mass/Vol] 10.9 g/dL Low 12.0 - 16.0 g/dL [facility] Interpretation and review of laboratory results Abnormal [facility] MCH (RBC) [Entitic mass] 28.3 pg 26 - 34 pg [facility] MCHC (RBC) [Mass/Vol] 32.8 g/dL 31 - 3 7 g/dL [facility] MCV (RBC) [Entitic vol] 86.4 fL 80 - 100 fL [facility] Platelet distribution width (Bld) [Ratio] 15.3 % High 11.5 - 14.9 % [facility] Platelet mean volume (Bld) [Entitic vol] 9.0 fL 6.0 - 12.0 fL [facility] Platelets (Bld) [#/Vol] 210 10*3/uL [facility] [facility] RBC (Bld) [#/Vol] 3.85 10*6/uL Low 4.0 - 5.2 m/uL [facility] WBC (Bld) [#/Vol] 11.4 10*3/uL High [facility] CBC with Auto Differentialon 11-11-2021 Absolute Eos # 0.10 [facility] Absolute Lymph # 1.90 [facility] Absolute [place] # 0.40 [facility] Basophils (Bld) [#/Vol] 0.00 10*3/uL [facility] Basophils/100 WBC (Bld) 0 % 0 - 2 % [facility] Eosinophils/100 WBC (Bld) 1 % 0 - 4 % [facility] Hematocrit (Bld) [Volume fraction] 31.3 % Low 36 - 46 % [facility] Hemoglobin (Bld) [Mass/Vol] 10.7 g/dL Low 12.0 - 16.0 g/dL [facility] Interpretation and review of laboratory results Abnormal [facility] Lymphocytes/100 WBC (Bld) 17 % Low 24 - 44 % [facility] MCH (RBC) [Entitic mass] 28.8 pg 26 - 34 pg [facility] MCHC (RBC) [Mass/Vol] 34.0 g/dL 31 - 3 7 g/dL [facility] MCV (RBC) [Entitic vol] 84.8 fL 80 - 100 fL [facility] Monocytes/100 WBC (Bld) 4 % 1 - 7 % [facility] Platelet distribution width (Bld) [Ratio] 14.9 % 11.5 - 14.9 % [facility] Platelet mean volume (Bld) [Entitic vol] 8.3 fL 6.0 - 12.0 fL [facility] Platelets (Bld) [#/Vol] 220 10*3/uL [facility] RBC (Bld) [#/Vol] 3.69 10*6/uL Low 4.0 - 5.2 m/uL [facility] Segmented neutrophils/100 WBC (Bld) 78 % High 36 - 66 % [facility] Segs Absolute 8.50 [facility] WBC (Bld) [#/Vol] 10.9 10*3/uL [facility] CBC with Diffon 11-11-2021 Abs. Basophil 0.00 k/uL Normal 0.0-0.2 [facility] Comment on above: Performed By: #### KELLI MCCARTNEY, UAX #### [facility] [address] [place] [address] [employer] Attendant: Dale Walker DO Abs.Neutrophil (Seg) 8.50 k/uL Normal 1.3-9.1 [facility] Comment on above: Performed By: #### KELLI MCCARTNEY, UAX #### [facility] [address] [place], [place] [id number] [employer] Attendant: Dale Walker DO Basophils/100 WBC (Bld) 0 % Normal 0-2 [facility] Comment on above: Performed By: #### U GEOVANNA DIALG, UAX #### [facility] [address] [facility] [place] [address] [employer] Attendant: Dale Walker DO Eosinophils (Bld) [#/Vol] 0.10 10*3/uL Normal 0.0-0.4 [facility] Comment on above: Performed By: #### U GEOVANNA DIALG, UAX #### [facility] [address] [place] [address] [employer] Attendant: Dale Walker DO Eosinophils/100 WBC (Bld) 1 % Normal 0-4 [facility] Comment on above: Performed By: #### MAHAD MCCARTNEYCG, UAX #### [facility] [address] [place] [address] [employer] Attendant: Dale Walker DO Erythrocyte distribution width (RBC) [Ratio] 14.9 % Normal 11.5-14.9 [facility] Comment on above: Performed By: #### KELLI MCCARTNEY, UAX #### [facility] [address] [place] [address] [employer] Attendant: Dale Walker DO Hematocrit (Bld) [Volume fraction] 31.3 % Low 36-46 [facility] Comment on above: Performed By: #### KELLI MCCARTNEY, UAX #### [facility] [address] [place] [address] [employer] Attendant: Dale Walker DO Hemoglobin (Bld) [Mass/Vol] 10.7 g/dL Low 12.0-16.0 [facility] Comment on above: Performed By: #### MAHAD MCCARTNEYCG, UAX #### [facility] [address] [place] [address] [employer] Attendant: Dale Walker DO Lymphocytes (Bld) [#/Vol] 1.90 10*3/uL Normal 1.0-4.8 [facility] Comment on above: Performed By: #### KELLI MCCARTNEY, UAX #### [facility] [address] [facility] [place] [address] [employer] Attendant: Dale Walker DO Lymphocytes/100 WBC (Bld) 17 % Low 24-44 [facility] Comment on above: Performed By: #### KELLI MCCARTNEY, UAX #### [facility] [place] [address] [employer] Attendant: Dale Walker DO MCH (RBC) [Entitic mass] 28.8 pg Normal 26-34 [facility] Comment on above: Performed By: #### KELLI MCCARTNEY, UAX #### [facility] [address] [place] [address] [employer] Attendant: Dale Walker DO MCHC (RBC) [Mass/Vol] 34.0 g/dL Normal 31-37 [facility] [place] Comment on above: Performed By: #### KELLI MCCARTNEY, UAX #### [facility] [address] [place] [address] [employer] Attendant: Dale Walker DO MCV (RBC) [Entitic vol] 84.8 fL Normal 80-100 [facility] Comment on above: Performed By: #### KELLI MCCARTNEY, UAX #### [facility] [address] [place] [address] [employer] Attendant: Dale Walker DO Monocytes (Bld) [#/Vol] 0.40 10*3/uL Normal 0.1-1.3 [facility] Comment on above: Performed By: #### KELLI MCCARTNEY, UAX #### [facility] [address] [place] [address] [employer] Attendant: Dale Walker DO Monocytes/100 WBC (Bld) 4 % Normal 1-7 [facility] Comment on above: Performed By: #### MAHAD MCCARTNEYCG, UAX #### [facility] [address] [place] [address] [employer] Attendant: Dale Walker DO Neutrophil (Seg) 78 % High 36-66 [facility] Comment on above: Performed By: #### KELLI MCCARTNEY, UAX #### [facility] [address] [place] [address] [employer] Attendant: Dale Walker DO Platelet mean volume (Bld) [Entitic vol] 8.3 fL Normal 6.0-12.0 [facility] Comment on above: Performed By: #### KELLI MCCARTNEY, UAX #### [facility] [address] [place] [address] [employer] Attendant: Dale Walker DO Platelets (Bld) [#/Vol] 220 10*3/uL Normal 150-450 [facility] Comment on above: Performed By: #### KELLI MCCARTNEY, UAX #### [facility] [address] [place] [address] [employer] Attendant: Dale Walker DO RBC (Bld) [#/Vol] 3.69 10*6/uL Low 4.0-5.2 [facility] Comment on above: Performed By: #### GEOVANNA MCCARTNEYG, UAX #### [facility] [address] [place] [address] [employer] Attendant: Dale Walker DO WBC (Bld) [#/Vol] 10.9 10*3/uL Normal 3.5-11.0 [facility] Comment on above: Performed By: #### U MICAO, UHCG, UAX #### [facility] [address] [place] [address] [employer] Attendant: Dale Walker DO [facility] Metabolic Profon 2021 Bilirubin [Mass/Vol] mg/dL Low 0.3-1.2 [facility] Comment on above: Performed By: #### U RC #### [facility] [address] [place] [address] [employer] Attendant: Dale Walker DO [address] [address] [employer] Attendant: Jacob Ring MD (cont.) [facility] Comment on above: Result Comment: Aver age GFR for 30-39 years old: 107 mL/min/1.73sq m Chronic Kidney Disease: <60 mL/min/1.73sq m Kidney failure: <15 mL/min/1.73sq m eGFR calculated using average adult body mass. Additional eGFR calculator available at: http://www.[employer]/multiple_crcl_2012.htm Performed By: #### U RC #### [facility] [address] [place] [address] [employer] Attendant: Dale Walker DO [facility] [address] [address] [employer] Attendant: Jacob Ring MD Albumin [Mass/Vol] 2.9 g/dL Low 3.5-5.2 [facility] Comment on above: Performed By: #### U RC #### [facility] [address] [place] [address] [employer] Attendant: Dale Walker DO [address] [address] [employer] Attendant: Jacob Ring MD Alkaline Phos 148 U/L High 35-104 [facility] Comment on above: Performed By: #### U RC #### [facility] [address] [place] [address] [employer] Attendant: Dale Walker DO [address] [address] [employer] Attendant: Jacob Ring MD ALT [Catalytic activity/Vol] 32 U/L Normal 5-33 [facility] Comment on above: Performed By: #### U RC #### [facility] [address] [place] [address] [employer] Attendant: Dale Walker DO [address] [address] [employer] Attendant: Jacob Ring MD Anion gap [Moles/Vol] 10 mmol/L Normal 9-17 [facility] [place] Comment on above: Performed By: #### U RC #### [facility] [address] [place] [address] [employer] Attendant: Dale Walker DO [address] [address] [employer] Attendant: Jacob Ring MD AST [Catalytic activity/Vol] 23 U/L Normal <32 [facility] Comment on above: Performed By: #### U RC #### [facility] [address] [place] [address] [employer] Attendant: Dale Walker DO [address] [address] [employer] Attendant: Jacob Ring MD Calcium [Mass/Vol] 9.1 mg/dL Normal 8.6-10.4 [facility] Comment on above: Performed By: #### U RC #### [facility] [address] [place] [address] [employer] Attendant: Dale Walker DO [address] [address] [employer] Attendant: Jacob Ring MD Chloride [Moles/Vol] 105 mmol/L Normal 98-107 [facility] Comment on above: Performed By: #### U RC #### [facility] [address] [place] [address] [employer] Attendant: Dale Walker [address] [address] [employer] Attendant: Jacob Ring MD CO2 [Moles/Vol] 25 mmol/L Normal 20-31 [facility] Comment on above: Performed By: #### U RC #### [facility] [address] [place] [address] [employer] Attendant: Dale Walker [address] [address] [employer] Attendant: Jacob Ring MD Creatinine [Mass/Vol] 0.69 mg/dL Normal 0.50-0.90 [facility] [place] Comment on above: Performed By: #### U RC #### [facility] [address] [place] [address] [employer] Attendant: Dale Walker [address] [address] [employer] Attendant: Jacob Ring MD GFR, Amer >60 Normal >60 [facility] Comment on above: Performed By: #### U RC #### [facility] [address] [place] [address] [employer] Attendant: Dale Wlaker [address] [address] [employer] Attendant: Jacob Ring MD GFR,non Amer >60 Normal >60 [facility] Comment on above: Performed By: #### U RC #### [facility] [address] [place] [address] [employer] Attendant: Dale Walker [address] [address] [employer] Attendant: Jacob Ring MD Glucose [Mass/Vol] 87 mg/dL Normal 70-99 [facility] Comment on above: Performed By: #### U RC #### [facility] [address] [place] [address] [employer] Attendant: Dale Walker [address] [address] [employer] Attendant: Jacob Ring MD Potassium [Moles/Vol] 4.4 mmol/L Normal 3.7-5.3 [facility] [place] Comment on above: Performed By: #### U RC #### [facility] [address] [place] [address] [employer] Attendant: Dale Walker [address] [address] [employer] Attendant: Jacob Ring MD Protein [Mass/Vol] 6.3 g/dL Low 6.4-8.3 [facility] Comment on above: Performed By: #### U RC #### [facility] [address] [place] [address] [employer] Attendant: Dale Walker [address] [address] [employer] Attendant: Jacob Ring MD Sodium [Moles/Vol] 140 mmol/L Normal 135-144 [facility] Comment on above: Performed By: #### U RC #### [facility] [address] [place] [address] [employer] Attendant: Dale Walker [address] [phone] [employer] Attendant: Jacob Ring MD Urea nitrogen [Mass/Vol] 10 mg/dL Normal 6-20 [facility] Comment on above: Performed By: #### U RC #### [facility] [address] [place] [address] [employer] Attendant: Dale Walker DO [facility] [address] [place], [place] [phone] [employer] Attendant: Jacob Ring MD Comprehensive Metabolic Pane [facility] 11-11-2021 Albumin [Mass/Vol] 2.9 g/dL Low 3.5 - 5.2 g/dL [facility] ALP (Bld) [Catalytic activity/Vol] 148 U/L High 35 - 104 U/L [facility] ALT [Catalytic activity/Vol] 32 U/L 5 - 33 U/L [facility] Anion gap [Moles/Vol] 10 mmol/L 9 - 17 mmol/L [facility] AST [Catalytic activity/Vol] 23 U/L <32 [facility] Bilirubin [Mass/Vol] mg/dL Low 0.3 - 1 .2 mg/dL [facility] Calcium [Mass/Vol] 9.1 mg/dL 8.6 - 10. 4 mg/dL [facility] Chloride [Moles/Vol] 105 mmol/L 98 - 10 7 mmol/L [facility] CO2 [Moles/Vol] 25 mmol/L 20 - 31 mmol/L [facility] Creatinine [Mass/Vol] 0.69 mg/dL 0.50 - 0.90 mg/dL [facility] Free PSA/Total PSA [Mass fraction] 6.3 g/dL Low 6.4 - 8.3 g/dL [facility] GFR >60 >60 mL/min [facility] GFR Non- >60 >60 mL/min [facility] GFR/1.73 sq M.predicted MDRD (S/P/Bld) [Vol rate/Area] [facility] Comment on above: Average GFR for 30-3 9 years old: 107 mL/min/1.73sq m Chronic Kidney Disease: <60 mL/min/1.73sq m Kidney failure: <15 mL/min/1.73sq m eGFR calculated using average adult body mass. Additional eGFR calculator available at: http://www.[employer]/multiple_crcl_2012.htm Glucose [Mass/Vol] 87 mg/dL 70 - 99 mg/dL [facility] Interpretation and review of laboratory results Abnormal [facility] Potassium [Moles/Vol] 4.4 mmol/L 3.7 - 5.3 mmol/L [facility] Sodium [Moles/Vol] 140 mmol/L 135 - 144 mmol/L [facility] Urea nitrogen (BldV) [Mass/Vol] 10 mg/dL 6 - 20 mg/dL [facility] HCG, Quanton 11-11-2021 HCG, Quant 5423 mIU/mL High <5 [facility] Comment on above: Result Comment: Non-preg premeno <=5 Postmeno <=8 Male <=3 If HCG results do not concur with clinical observations, additional testing to confirm results is recommended. Elevated results not associated with may be found in patients with other diseases such as tumors of the germ cells (testis, ovaries, etc.), bladder, pancreas, stomach, lungs, and liver. Performed By: #### U MICAO, CG, UAX #### [facility] [address] [place] [address] [employer] Attendant: Dale Walker, HCG, Quantitative, on 11-11-2021 hCG Quant 5423 High <5 mIU/mL [facility] Comment on above: Non-preg premeno <=5 Postmeno <=8 Male <=3 If HCG results do not concur with clinical observations, additional testing to confirm results is recommended. Elevated results not associated with may be found in patients with other diseases such as tumors of the germ cells (testis, ovaries, etc.), bladder, pancreas, stomach, lungs, and liver. Interpretation and review of laboratory results Abnormal [facility] Magnesiumon 11-11-2021 Magnesium [Mass/Vol] 3.9 mg/dL High 1.6-2.6 [facility] Comment on above: Performed By: #### U MICAO, MAHADCG, UAX #### [facility] [address] [facility] [place] [address] [employer] Attendant: Dale Walker DO Interpretation and review of laboratory results Abnormal [facility] Magnesium [Mass/Vol] 3.9 mg/dL High 1.6 - 2 .6 mg/dL [facility] Microscopic Urinalysison Bacteria, UA None None [facility] Casts UA 0 TO 2 /LPF [facility] Epithelial Cells UA 3 to 5 /HPF [facility] RBC, UA TOO NUMEROUS TO COUNT /HPF [facility] WBC, UA 10 TO 20 /HPF [facility] Protein / Creatinine Ratio, Urineon 11-11-2021 Creatinine, Ur 46.0 mg/dL 28.0 - 217.0 mg/dL [facility] Interpretation and review of laboratory results Abnormal [facility] Protein (U) [Mass/Vol] 19 mg/dL [facility] Comment on above: No normal range esta blished. Urine Total Protein Creatinine Ratio 0.41 High [facility] Protein,Tot,[place] Uron 2021 Creatinine [Mass/Vol] 46.0 mg/dL Normal 28.0-217.0 [facility] [place] Comment on above: Performed By: #### U MICAO, UHCG, UAX #### [facility] [address] [facility] [place] [address] [employer] Attendant: Dale Walker DO Tot Prot. Conc. 19 mg/dL Normal [facility] Comment on above: Result Comment: No n ormal range established. Performed By: #### U MICAO, UHCG, UAX #### [facility] [address] [facility] [place] [address] [employer] Attendant: Dale Walker DO TP/Cre Ratio 0.41 High 0.00-0.20 [facility] Comment on above: Performed By: #### U MICAO, UHCG, UAX #### [facility] [address] [place] [address] [employer] Attendant: Dale Walker DO Surgical Pathologyon 022 Surgical Pathology (NOTE) -- Diagnosis -- A, B. Suction DANDC tissues: Products of conception. Lance Hernadez M.D. Electronically Signed Out rdd/11/15/2021 Clinical Information Pre-Op Diagnosis: POST COMPLICATIONS Operative Findings: AMNIOTIC MEMBRANES, PRODUCTS OF CONCEPTION Operation Performed: EXAMINATION UNDER ANESTHESIA AND SUCTION D AND C Source of Specimen A: AMNIOTIC MEMBRANES B: PRODUCTS OF CONCEPTION Gross Description A. JUANIS ONEILL AMNIOTIC MEMBRANES Received in formalin is a 22 x 16 x 0.1 cm irregular portion of hernandez-pink focally opaque membranes. [employer] section submitted in 1cs. B. JUANIS ONEILL PRODUCTS OF CONCEPTION Received in formalin is a 5.0 x 5.0 x 2.5 cm aggregate of pink-hernandez to red hemorrhagic tissue. [employer] sections are submitted in 3cs. bf js Microscopic Description A-B. Tissue consists of membranes, blood clot, and decidua. SURGICAL PATHOLOGY CONSULTATION Patient Name: JUANIS ONEILL [facility] Rec: [id number] Path Number: [id number] [facility] ANATOMIC PATHOLOGY [address] [place] [address]. [place], [place] [address] Normal [facility] Comment on above: Performed By: #### C FET #### [facility] [address] [place] [address] [employer] Attendant: Dale Walker DO TYPE AND SCREENon 11-11-2021 ABO/Rh Negative [facility] Antibody ID Anti-D, Passive Due To RhIG [facility] Arm Band Number [id number] [facility] Expiration Date 11/14/2021,2359 [facility] Type + Screenon 11-11-2021 Type + Screen Sample Expiration 11/14/2021,2359 Arm Band Number [id number] ABO/Rh(D) O NEGATIVE Antibody Screen POSITIVE Antibody Ident Anti-D, Passive Due To RhIG Normal [facility] Comment on above: Performed By: #### U RC #### [facility] [address] [place] [address] [employer] Attendant: Dale Walker DO [address] [address] [employer] Attendant: Jacob Ring MD UA w/Reflex Cultureon 2021 Bilirubin, SemiQt,Ur Negative Normal NEG [facility] Comment on above: Performed By: #### C FET #### [facility] [address] [place] [address] [employer] Attendant: Dale Walker DO Blood, Urine LARGE Abnormal NEG [facility] Comment on above: Performed By: #### C FET #### [facility] [address] [place] [address] [employer] Attendant: Dale Walker DO Clarity (U) Clear Normal CLEAR [facility] Comment on above: Performed By: #### C FET #### [facility] [address] [place] [address] [employer] Attendant: Dale Walker DO Color (U) [place] Abnormal YEL [facility] Comment on above: Performed By: #### C FET #### [facility] [place] [address] [employer] Attendant: Dale Walker DO Glucose Ql (U) Negative Normal NEG [facility] Comment on above: Performed By: #### C FET #### [facility] [address] [place] [address] [employer] Attendant: Dale Walker DO Ketones Ql (U) Negative Normal NEG [facility] Comment on above: Performed By: #### C FET #### [facility] [address] [place] [address] [employer] Attendant: Dale Walker DO Leukocyte esterase Test strip Ql (U) MOD Abnormal NEG [facility] Comment on above: Performed By: #### C FET #### [facility] [address] [place] [address] [employer] Attendant: Dale Walker DO Nitrite,Ur Negative Normal NEG [facility] Comment on above: Performed By: #### C FET #### [facility] [address] [place] [address] [employer] Attendant: Dale Walker DO PH,Ur 5.5 Normal 5.0-8.0 [facility] Comment on above: Performed By: #### C FET #### [facility] [address] [place] [address] [employer] Attendant: Dale Walker DO Protein Ql (U) 1+ Abnormal NEG [facility] Comment on above: Performed By: #### C FET #### [facility] [address] [place] [address] [employer] Attendant: Dale Walker DO Spec. [place],Ur 1.008 Normal 1.000-1.030 [facility] Comment on above: Performed By: #### C FET #### [facility] [address] [place] [address] [employer] Attendant: Dale Walker DO Urobilinogen,Ur Normal Normal NORM [facility] Comment on above: Performed By: #### C FET #### [facility] [address] [place] [address] [employer] Attendant: Dale Walker DO Urinalysis with Reflex to Cu ltureon 11-11-2021 Bilirubin Urine Negative NEGATIVE [facility] Color, UA [place] Abnormal Yellow [facility] Glucose, Ur Negative NEGATIVE [facility] Interpretation and review of laboratory results Abnormal [facility] Ketones Ql (U) Negative NEGATIVE [facility] Leukocyte esterase Test strip Ql (U) MOD Abnormal NEGATIVE [facility] Nitrite, Urine Negative NEGATIVE [facility] pH, UA 5.5 [facility] Protein, UA 1+ Abnormal NEGATIVE [facility] Specific [place], UA 1.008 [facility] Turbidity UA Clear Clear [facility] Urine Hgb LARGE Abnormal NEGATIVE [facility] Urobilinogen, Urine Normal Normal [facility] Urinalysis,Microon 2 Bacteria None Normal NONE [facility] Comment on above: Performed By: #### C FET #### [facility] [address] [place] [address] [employer] Attendant: Dale Walker DO Casts 0 TO 2 Normal [facility] Comment on above: Performed By: #### C FET #### [facility] [place] [address] [employer] Attendant: Dale Walker DO Epithelial cells LM Ql (Urine sed) 3 to 5 Normal [facility] Comment on above: Performed By: #### C FET #### [facility] [place] [id number] [employer] Attendant: Dale Walker DO Urine RBC's TOO NUMEROUS TO COUNT Normal [facility] Comment on above: Performed By: #### C FET #### [facility] [place] [address] [employer] Attendant: Dale Walker DO Urine WBC's 10 TO 20 Normal [facility] Comment on above: Performed By: #### C FET #### [facility] [address] [facility] [place] [address] [employer] Attendant: Dale Walker DO Rosetteon 11-10-2021 Dinora Negative Normal [facility] Comment on above: Performed By: #### C FET #### [facility] [address] [place] [address] [employer] Attendant: Dale Walker DO Hgb/Hcton 11-10-2021 Hematocrit (Bld) [Volume fraction] 32.3 % Low 36-46 [facility] Comment on above: Performed By: #### U RC #### [facility] [address] [place] [address] [employer] Attendant: Dale Walker DO [address] [phone] [employer] Attendant: Jacob Ring MD Hemoglobin (Bld) [Mass/Vol] 10.8 g/dL Low 12.0-16.0 [facility] Comment on above: Performed By: #### U RC #### [facility] [address] [place] [address] [employer] Attendant: Dale Walker DO [address] [address] [employer] Attendant: Jacob Ring MD RHIG, Transfuseon 11-10-2021 RHIG, Transfuse Unit Number [id number] Blood Component Type RHIG Unit Division 00 Status of Unit TRANSFUSED Transfusion Status OK TO TRANSFUSE [facility] Comment on above: Performed By: #### C FET #### [facility] [address] [place] [address] [employer] Attendant: Dale Walker DO CBC with Diffon 11-09-2021 Abs. Basophil 0.00 k/uL Normal 0.0-0.2 [facility] Comment on above: Performed By: #### KELLI MCCARTNEY, UAX #### [facility] [address] [place] [address] [employer] Attendant: Dale Walker DO Abs.Neutrophil (Seg) 8.40 k/uL Normal 1.3-9.1 [facility] Comment on above: Performed By: #### KELLI MCCARTNEY, UAX #### [facility] [address] [facility] [place] [address] [employer] Attendant: Dale Walker DO Basophils/100 WBC (Bld) 0 % Normal 0-2 [facility] Comment on above: Performed By: #### KELLI MCCARTNEY, UAX #### [facility] [place] [address] [employer] Attendant: Dale Walker DO Eosinophils (Bld) [#/Vol] 0.10 10*3/uL Normal 0.0-0.4 [facility] Comment on above: Performed By: #### KELLI MCCARTNEY, UAX #### [facility] [address] [place] [address]. [place] [address] [employer] Attendant: Dale Walker DO Eosinophils/100 WBC (Bld) 1 % Normal 0-4 [facility] Comment on above: Performed By: #### KELLI MCCARTNEY, UAX #### [facility] [place] [address] [employer] Attendant: Dale Walker DO Erythrocyte distribution width (RBC) [Ratio] 15.1 % High 11.5-14.9 [facility] Comment on above: Performed By: #### KELLI MCCARTNEY, UAX #### [facility] [place] [address] [employer] Attendant: Dale Walker DO Hematocrit (Bld) [Volume fraction] 33.0 % Low 36-46 [facility] Comment on above: Performed By: #### U GEOVANNA DIALG, UAX #### [facility] [place] [address] [employer] Attendant: Dale Walker DO Hemoglobin (Bld) [Mass/Vol] 11.0 g/dL Low 12.0-16.0 [facility] Comment on above: Performed By: #### KELLI MCCARTNEY, UAX #### [facility] [address] [place] [address] [employer] Attendant: Dale Walker DO Lymphocytes (Bld) [#/Vol] 1.40 10*3/uL Normal 1.0-4.8 [facility] Comment on above: Performed By: #### KELLI MCCARTNEY, UAX #### [facility] [address] [place] [address] [employer] Attendant: Dale Walker DO Lymphocytes/100 WBC (Bld) 14 % Low 24-44 [facility] Comment on above: Performed By: #### KELLI MCCARTNEY, UAX #### [facility] [address] [place] [address] [employer] Attendant: Dale Walker DO MCH (RBC) [Entitic mass] 28.4 pg Normal 26-34 [facility] Comment on above: Performed By: #### GEOVANNA MCCARTNEYG, UAX #### [facility] [address] [place] [address] [employer] Attendant: Dale Walker DO MCHC (RBC) [Mass/Vol] 33.3 g/dL Normal 31-37 [facility] [place] Comment on above: Performed By: #### KELLI MCCARTNEY, UAX #### [facility] [address] [facility] [place] [address] [employer] Attendant: Dale Walker DO MCV (RBC) [Entitic vol] 85.3 fL Normal 80-100 [facility] Comment on above: Performed By: #### KELLI MCCARTNEY, UAX #### [facility] [place] [address] [employer] Attendant: Dale Walker DO Monocytes (Bld) [#/Vol] 0.40 10*3/uL Normal 0.1-1.3 [facility] Comment on above: Performed By: #### KELLI MCCARTNEY, UAX #### [facility] [address] [place] [address] [employer] Attendant: Dale Walker DO Monocytes/100 WBC (Bld) 4 % Normal 1-7 [facility] Comment on above: Performed By: #### KELLI MCCARTNEY, UAX #### [facility] [place] [address] [employer] Attendant: Dale Walker DO Neutrophil (Seg) 81 % High 36-66 [facility] Comment on above: Performed By: #### KELLI MCCARTNEY, UAX #### [facility] [place] [address] [employer] Attendant: Dale Walker DO Platelet mean volume (Bld) [Entitic vol] 8.8 fL Normal 6.0-12.0 [facility] Comment on above: Performed By: #### GEOVANNA MCCARTNEYG, UAX #### [facility] [place] [address] [employer] Attendant: Dale Walker DO Platelets (Bld) [#/Vol] 198 10*3/uL Normal 150-450 [facility] Comment on above: Performed By: #### GEOVANNA MCCARTNEYG, UAX #### [facility] [address] [facility] [place] [address] [employer] Attendant: Dale Walker DO RBC (Bld) [#/Vol] 3.86 10*6/uL Low 4.0-5.2 [facility] Comment on above: Performed By: #### KELLI MCCARTNEY, UAX #### [facility] [address] [facility] [place] [address] [employer] Attendant: Dale Walker DO WBC (Bld) [#/Vol] 10.4 10*3/uL Normal 3.5-11.0 [facility] Comment on above: Performed By: #### KELLI MCCARTNEY, UAX #### [facility] [address] [facility] [place] [address] [employer] Attendant: Dale Walker DO Comp Metabolic Profon 2021 (cont.) Normal [facility] Comment on above: Result Comment: Aver age GFR for 30-39 years old: 107 mL/min/1.73sq m Chronic Kidney Disease: <60 mL/min/1.73sq m Kidney failure: <15 mL/min/1.73sq m eGFR calculated using average adult body mass. Additional eGFR calculator available at: http://www.[employer].com/multiple_crcl_2012.htm Performed By: #### KELLI MCCARTNEY, UAX #### [facility] [address] [facility] [place] [address] [employer] Attendant: Dale Walker DO Albumin [Mass/Vol] 2.8 g/dL Low 3.5-5.2 [facility] Comment on above: Performed By: #### KELLI MCCARTNEY, UAX #### [facility] [address] [place] [address] [employer] Attendant: Dale Walker DO Alkaline Phos 160 U/L High 35-104 [facility] Comment on above: Performed By: #### U MAHAD DIALCG, UAX #### [facility] [address] [place] [address] [employer] Attendant: Dale Walker DO ALT [Catalytic activity/Vol] 43 U/L High 5-33 [facility] Comment on above: Performed By: #### GEOVANNA MCCARTNEYG, UAX #### [facility] [place] [address] [employer] Attendant: Dale Walker DO Anion gap [Moles/Vol] 9 mmol/L Normal 9-17 [facility] [place] Comment on above: Performed By: #### MAHAD MCCARTNEYCG, UAX #### [facility] [place] [address] [employer] Attendant: Dale Walker DO AST [Catalytic activity/Vol] 28 U/L Normal <32 [facility] Comment on above: Performed By: #### KELLI MCCARTNEY, UAX #### [facility] [place] [address] [employer] Attendant: Dale Walker DO Bilirubin [Mass/Vol] 0.40 mg/dL Normal 0.3-1.2 [facility] Comment on above: Performed By: #### MAHAD MCCARTNEYCG, UAX #### [facility] [place] [address] [employer] Attendant: Dale Walker DO Calcium [Mass/Vol] 8.7 mg/dL Normal 8.6-10.4 [facility] Comment on above: Performed By: #### MAHAD MCCARTNEYCAmy, UAX #### [facility] [address] [place] [address] [employer] Attendant: Dale Walker DO Chloride [Moles/Vol] 103 mmol/L Normal 98-107 [facility] Comment on above: Performed By: #### U MICAO, UHCG, UAX #### [facility] [address] [facility] [place] [address] [employer] Attendant: Dale Walker DO CO2 [Moles/Vol] 24 mmol/L Normal 20-31 [facility] Comment on above: Performed By: #### U MICAO, UHCG, UAX #### [facility] [address] [facility] [place] [address] [employer] Attendant: Dale Walker DO Creatinine [Mass/Vol] 0.63 mg/dL Normal 0.50-0.90 [facility] [place] Comment on above: Performed By: #### U MICAO, UHCG, UAX #### [facility] [place] [address] [employer] Attendant: Dale Walker DO GFR, Amer >60 Normal >60 [facility] Comment on above: Performed By: #### U MICABatuista, UHCG, UAX #### [facility] [place] [address] [employer] Attendant: Dale Walker DO GFR,non Amer >60 Normal >60 [facility] Comment on above: Performed By: #### U MICAO, UHCG, UAX #### [facility] [address] [facility] [place] [address] [employer] Attendant: Dale Walker DO Glucose [Mass/Vol] 124 mg/dL High 70-99 [facility] Comment on above: Performed By: #### U MICAO, UHCG, UAX #### [facility] [address] [facility] [place] [address] [employer] Attendant: Dale Walker DO Potassium [Moles/Vol] 4.2 mmol/L Normal 3.7-5.3 [facility] [place] Comment on above: Performed By: #### U MAHAD DIALCG, UAX #### [facility] [place] [address] [employer] Attendant: Dale Walker DO Protein [Mass/Vol] 5.9 g/dL Low 6.4-8.3 [facility] Comment on above: Performed By: #### GEOVANNA MCCARTNEYG, UAX #### [facility] [address] [place] [address] [employer] Attendant: Dale Walker DO Sodium [Moles/Vol] 136 mmol/L Normal 135-144 [facility] Comment on above: Performed By: #### KELLI MCCARTNEY, UAX #### [facility] [address] [place] [address] [employer] Attendant: Dale Walker DO Urea nitrogen [Mass/Vol] 7 mg/dL Normal 6-20 [facility] Comment on above: Performed By: #### MAHAD MCCARTNEYCG, UAX #### [facility] [address] [place] [address] [employer] Attendant: Dale Walker DO Drug Scr, Abuse, Uron 2021 Amphetamine(s),Ur Negative Normal NEG [facility] Comment on above: Result Comment: (Positive cutoff 1000 ng/mL) Performed By: #### D AU #### [facility] [address] [place] [address] [employer] Attendant: Dale Walker DO Barbiturate(s),Ur Negative Normal NEG [facility] Comment on above: Result Comment: (Positive cutoff 200 ng/mL) Performed By: #### D AU #### [facility] [place] [address] [employer] Attendant: Dale Walker DO Benzodiazepine(s) Negative Normal NEG [facility] Comment on above: Result Comment: (Positive cutoff 200 ng/mL) Performed By: #### D AU #### [facility] [address] [place] [address] [employer] Attendant: Dale Walker DO Cannabinoid(s),Ur Positive Abnormal NEG [facility] Comment on above: Result Comment: (Positive cutoff 50 ng/mL) Performed By: #### D AU #### [facility] [address] [place] [address] [employer] Attendant: Dale Walker DO Cocaine Metabolite Negative Normal NEG [facility] Comment on above: Result Comment: (Positive cutoff 300 ng/mL) Performed By: #### D AU #### [facility] [address] [place] [address] [employer] Attendant: Dale Walker DO Interpretive Info Assay provides medic al screening only. The absence of expected drug(s) and/or Normal [facility] Comment on above: Result Comment: meta bolite(s) may indicate diluted or adulterated urine, limitations of testing or timing of collection. Testing for legal purposes should be confirmed by another method. To request confirmation of test result, please call the lab within 7 days of sample submission. Performed By: #### D AU #### [facility] [address] [place] [address] [employer] Attendant: Dale Walker DO Methadone Ql (U) Negative Normal NEG [facility] Comment on above: Result Comment: (Positive cutoff 300 ng/mL) Performed By: #### D AU #### [facility] [address] [place] [address] [employer] Attendant: Dale Walker DO Opiate(s), Ur Negative Normal NEG [facility] Comment on above: Result Comment: (Positive cutoff 300 ng/mL) Performed By: #### D AU #### [facility] [address] [place] [address] [employer] Attendant: Dale Walker DO Oxycodone, Urine Negative Normal NEG [facility] Comment on above: Result Comment: (Positive cutoff 100 ng/mL) Performed By: #### D AU #### [facility] [address] [place] [address] [employer] Attendant: Dale Walker DO Phencyclidine, Ur Negative Normal NEG [facility] Comment on above: Result Comment: (Positive cutoff 25 ng/mL) Performed By: #### D AU #### [facility] [address] [place] [address] [employer] Attendant: Dale Walker DO Protein,Mat[place] Uron 2021 Creatinine [Mass/Vol] 83.3 mg/dL Normal 28.0-217.0 [facility] [place] Comment on above: Performed By: #### U RTPRT #### [facility] [address] [place] [address] [employer] Attendant: Dale Walker DO Tot Prot. Conc. 11 mg/dL Normal [facility] Comment on above: Result Comment: No n ormal range established. Performed By: #### U RTPRT #### [facility] [address] [place] [address] [employer] Attendant: Dale Walker DO TP/Cre Ratio 0.13 Normal 0.00-0.20 [facility] Comment on above: Performed By: #### U RTPRT #### [facility] [address] [place] [address] [employer] Attendant: Dale Walker DO Surgical Pathologyon 022 Surgical Pathology (NOTE) -- Diagnosis -- Placenta, third trimester: - Umbilical cord and membranes, free of inflammation. - Plate, no histologic abnormality. Lance Hernadez M.D. Electronically Signed Out rdd/11/11/2021 Clinical Information Operative Findings: BABY GIRL AT 19:14, APGARS: 8/9, WEIGHT: 7 LBS 14 OZ, GESTATIONAL AGE: 41 WKS 3 DAYS Operation Performed: PLACENTA Source of Specimen A: PLACENTA Gross Description JUANIS ONEILL, UNDESIGNATED Placenta with attached membranes and umbilical cord. UMBILICAL CORD Length: Detached 26.5 cm Diameter: 0.8 cm True knots: No Number of vessels: 3 Spiraling: Normal Insertion into surface: Marginal MEMBRANES Color: [place]-gonsales, thin and translucent with a circumvallate insertion Meconium staining: No SURFACE Color: Purple-gonsales, with a normal array of surface vessels Subchorionic fibrin: Moderate, 10-20% of the disc MATERNAL SURFACE Cotyledons: -All present and intact: Yes -Focal lesions: No Placental size: 17.5 x 16.0 x 3.5 cm Shape: Ovoid Weight: 498 grams Number of cassettes: 4cs tm Microscopic Description Umbilical cord: Negative for funisitisMembranes: Negative for chorioamnionitisMeconium staining: NoInfarcts: NoIntervillous thrombi: NoSubchorionic fibrin: Not increasedVillous maturation: MatureNucleated erythrocytes in villous capillaries: RarePlate: No histologic abnormality SURGICAL PATHOLOGY CONSULTATION Patient Name: JUANIS ONEILL [facility] Rec: [id number] Path Number: [id number] [facility] [employer] ANATOMIC PATHOLOGY [facility]. [place], [place] [address] Normal [facility] Comment on above: Performed By: #### C FET #### [facility] [address] [place], [place] [phone] [employer] Attendant: Dale Walker DO T.pallidum Ab Screenon 11-09 T.pallidum Ab Screen Non-Reactive Normal NR [facility] Comment on above: Result Comment: T. pallidum antibodies are not detected. There is no serological evidence of infection with T. pallidum (early primary syphilis cannot be excluded). Retest in 2-4 weeks if syphilis is clinically suspect. Performed By: #### C FET #### [facility] [place] [address] [employer] Attendant: Dale Walker DO CBCon 11-08-2021 Erythrocyte distribution width (RBC) [Ratio] 14.9 % Normal 11.5-14.9 [facility] Comment on above: Performed By: #### C FET #### [facility] [address] [place] [address] [employer] Attendant: Dale Walker DO Hematocrit (Bld) [Volume fraction] 34.0 % Low 36-46 [facility] Comment on above: Performed By: #### C FET #### [facility] [address] [place] [address] [employer] Attendant: Dale Walker DO Hemoglobin (Bld) [Mass/Vol] 11.3 g/dL Low 12.0-16.0 [facility] Comment on above: Performed By: #### C FET #### [facility] [address] [place] [address] [employer] Attendant: Dale Walker DO MCH (RBC) [Entitic mass] 28.0 pg Normal 26-34 [facility] Comment on above: Performed By: #### C FET #### [facility] [address] [place] [address] [employer] Attendant: Dale Walker DO MCHC (RBC) [Mass/Vol] 33.1 g/dL Normal 31-37 [facility] [place] Comment on above: Performed By: #### C FET #### [facility] [address] [place] [address] [employer] Attendant: Dale Walker DO MCV (RBC) [Entitic vol] 84.7 fL Normal 80-100 [facility] Comment on above: Performed By: #### C FET #### [facility] [place] [address] [employer] Attendant: Dale Walker DO Platelet mean volume (Bld) [Entitic vol] 8.8 fL Normal 6.0-12.0 [facility] Comment on above: Performed By: #### C FET #### [facility] [address] [place] [address] [employer] Attendant: Dale Walker DO Platelets (Bld) [#/Vol] 229 10*3/uL Normal 150-450 [facility] Comment on above: Performed By: #### C FET #### [facility] [address] [place] [address] [employer] Attendant: Dale Walker DO RBC (Bld) [#/Vol] 4.02 10*6/uL Normal 4.0-5.2 [facility] Comment on above: Performed By: #### C FET #### [facility] [address] [place] [address] [employer] Attendant: Dale Walker DO WBC (Bld) [#/Vol] 11.9 10*3/uL High 3.5-11.0 [facility] Comment on above: Performed By: #### C FET #### [facility] [address] [place], [place] [address] [place] [address] [employer] Attendant: Dale Walker DO Type + Screenon 11-08-2021 Type + Screen Sample Expiration 11/11/2021,2359 Arm Band Number [id number] ABO/Rh(D) O NEGATIVE Antibody Screen NEGATIVE Normal [facility] Comment on above: Performed By: #### U RC #### [facility] [address] [place] [address] [employer] Attendant: Dale Walker DO [address] [address] [employer] Attendant: Jacob Ring MD Group B Strep,PCRon 10-20-19 Group B Strep,PCR Specimen Description .VAGINAL/PERIRECTAL Direct Exam POSITIVE: GROUP B STREPTOCOCCAL DNA DETECTED BY NUCLEIC ACID AMPLIFICATION. This test detects GBS DNA in vaginal/rectal specimens to identify colonization. A positive result will not distinguish colonization from infection. Report Status FINAL 10/19/2021 [facility] Comment on above: Performed By: #### N OGBS #### [address] [address] [employer] Attendant: Jacob Ring MD Cult,Urineon 09-21-2021 Cult,Urine Specimen Description .CLEAN CATCH URINE Culture NO SIGNIFICANT GROWTH Report Status FINAL 09/21/2021 [facility] Comment on above: Performed By: #### C MIS #### [address] [address] [employer] Attendant: Jacob Ring MD UA w/Reflex Cultureon 2021 Bilirubin, SemiQt,Ur Negative Abnormal NEG [facility] [place] Comment on above: Performed By: #### U QUINCY ADORNO #### [address] [address] [employer] Attendant: Jacob Ring MD Blood, Urine LARGE Abnormal NEG [facility] Comment on above: Performed By: #### U QUINCY ADORNO #### [address] [address] [employer] Attendant: Jacob Ring MD Clarity (U) Clear Normal CLEAR [facility] Comment on above: Performed By: #### U AX, UMICAO #### [facility] [address] [place] [address] [employer] Attendant: Jacob Ring MD Color (U) Dark Yellow Abnormal YEL [facility] Comment on above: Performed By: #### U AX, UMICAO #### [facility] [address] [place] [address] [employer] Attendant: Jacob Ring MD Glucose Ql (U) Negative Normal NEG [facility] Comment on above: Performed By: #### U AX, UMICAO #### [facility] [address] [place] [phone] [employer] Attendant: Jacob Ring MD Ketones Ql (U) TRACE Abnormal NEG [facility] Comment on above: Performed By: #### U AX, UMICAO #### [facility] [address] [place] [address] [employer] Attendant: Jacob Ring MD Leukocyte esterase Test strip Ql (U) TRACE Abnormal NEG [facility] Comment on above: Performed By: #### U AX, UMICAO #### [facility] [address] [place] [address] [employer] Attendant: Jacob Ring MD Nitrite,Ur Negative Normal NEG [facility] Comment on above: Performed By: #### U AX, UMICAO #### [facility] [address] [place] [address] [employer] Attendant: Jacob Ring MD PH,Ur 6.0 Normal 5.0-8.0 [facility] Comment on above: Performed By: #### U AX, UMICAO #### [facility] [address] [place] [address] [employer] Attendant: Jacob Ring MD Protein Ql (U) 1+ Abnormal NEG [facility] Comment on above: Performed By: #### U AX, UMICAO #### [facility] [address] [place] [address] [employer] Attendant: Jacob Ring MD Spec. Charlotte,Ur 1.027 Normal 1.005-1.030 [facility] Comment on above: Performed By: #### U AX, UMICAO #### [address] [address] [employer] Attendant: Jacob Ring MD Urobilinogen,Ur Normal Normal NORM [facility] Comment on above: Performed By: #### U AX, UMICAO #### [address] [address] [employer] Attendant: Jacob Ring MD Urinalysis,Microon 2 ----- Normal [facility] Comment on above: Performed By: #### U AX, UMICAO #### [address] [address] [employer] Attendant: Jacob Ring MD Casts 2 TO 5 HYALINE Normal 0-8 [facility] Comment on above: Result Comment: Refe rence range defined for non-centrifuged specimen. Performed By: #### U AX, UMICAO #### [address] [address] [employer] Attendant: Jacob Ring MD Epithelial cells LM Ql (Urine sed) 5 TO 10 Normal 0-5 [facility] Comment on above: Performed By: #### U AX, UMICAO #### [address] [address] [employer] Attendant: Jacob Ring MD Urine RBC's TOO NUMEROUS TO COUNT Normal 0-4 [facility] Comment on above: Result Comment: Refe rence range defined for non-centrifuged specimen. Performed By: #### U AX, UMICAO #### [address] [address] [employer] Attendant: Jacob Ring MD Urine WBC's 5 TO 10 Normal 0-5 [facility] Comment on above: Performed By: #### U QUINCY ADORNO #### [address] [address] [employer] Attendant: Jacob Ring MD Vaginitis DNA Probeon 2021 Vira Negative Normal NEG [facility] Comment on above: Result Comment: for Vira sp. Method of testing is a DNA probe intended for detection and identification of Vira species, Gardnerella vaginalis, and Trichomonas vaginalis nucleic acid in vaginal fluid specimens from patients with symptoms of vaginitis/vaginosis. Performed By: #### C MIS #### [address] [address] [employer] Attendant: Jacob Ring MD Gardnerella Negative Normal NEG [facility] Comment on above: Result Comment: for Gardnerella vaginalis Performed By: #### C MIS #### [address] [address] [employer] Attendant: Jacob Ring MD Trichomonas Negative Normal NEG [facility] Comment on above: Result Comment: for Trichomonas Vaginalis Performed By: #### C MIS #### [address] [address] [employer] Attendant: Jacob Ring MD Source .VAGINAL SWAB Normal [facility] Comment on above: Performed By: #### C MIS #### [address] [address] [employer] Attendant: Jacob Ring MD CBC with Diffon 08-24-2021 Abs. Basophil 0.00 k/uL Normal 0.0-0.2 [facility] Comment on above: Performed By: #### C FET #### [facility] [address] [place] [address] [employer] Attendant: Dale Walker DO Abs.Neutrophil (Seg) 8.20 k/uL Normal 1.3-9.1 [facility] Comment on above: Performed By: #### C FET #### [facility] [address] [place] [address] [employer] Attendant: Dale Walker DO Basophils/100 WBC (Bld) 0 % Normal 0-2 [facility] Comment on above: Performed By: #### C FET #### [facility] [place] [address] [employer] Attendant: Dale Walker DO Eosinophils (Bld) [#/Vol] 0.10 10*3/uL Normal 0.0-0.4 [facility] Comment on above: Performed By: #### C FET #### [facility] [address] [place] [address] [employer] Attendant: Dale Walker DO Eosinophils/100 WBC (Bld) 1 % Normal 0-4 [facility] Comment on above: Performed By: #### C FET #### [facility] [address] [place] [address] [employer] Attendant: Dale Walker DO Erythrocyte distribution width (RBC) [Ratio] 14.2 % Normal 11.5-14.9 [facility] Comment on above: Performed By: #### C FET #### [facility] [address] [place] [address] [employer] Attendant: Dale Walker DO Hematocrit (Bld) [Volume fraction] 34.6 % Low 36-46 [facility] Comment on above: Performed By: #### C FET #### [facility] [address] [place] [address] [employer] Attendant: Dale Walker DO Hemoglobin (Bld) [Mass/Vol] 11.5 g/dL Low 12.0-16.0 [facility] Comment on above: Performed By: #### C FET #### [facility] [place] [address] [employer] Attendant: Dale Walker DO Lymphocytes (Bld) [#/Vol] 1.50 10*3/uL Normal 1.0-4.8 [facility] Comment on above: Performed By: #### C FET #### [facility] [address] [place] [address] [employer] Attendant: Dale Walker DO Lymphocytes/100 WBC (Bld) 14 % Low 24-44 [facility] Comment on above: Performed By: #### C FET #### [facility] [address] [place] [address] [employer] Attendant: Dale Walker DO MCH (RBC) [Entitic mass] 28.4 pg Normal 26-34 [facility] Comment on above: Performed By: #### C FET #### [facility] [address] [place] [address] [employer] Attendant: Dale Walker DO MCHC (RBC) [Mass/Vol] 33.3 g/dL Normal 31-37 [facility] Comment on above: Performed By: #### C FET #### [facility] [address] [place] [address] [employer] Attendant: Dale Walker DO MCV (RBC) [Entitic vol] 85.2 fL Normal 80-100 [facility] Comment on above: Performed By: #### C FET #### [facility] [address] [place] [address] [employer] Attendant: Dale Walker DO Monocytes (Bld) [#/Vol] 0.40 10*3/uL Normal 0.1-1.3 [facility] Comment on above: Performed By: #### C FET #### [facility] [address] [facility] [place] [address] [employer] Attendant: Dale Walker DO Monocytes/100 WBC (Bld) 4 % Normal 1-7 [facility] Comment on above: Performed By: #### C FET #### [facility] [place] [address] [employer] Attendant: aDle Walker DO Neutrophil (Seg) 81 % High 36-66 [facility] Comment on above: Performed By: #### C FET #### [facility] [place] [address] [employer] Attendant: Dale Walker DO Platelet mean volume (Bld) [Entitic vol] 8.4 fL Normal 6.0-12.0 [facility] Comment on above: Performed By: #### C FET #### [facility] [address] [facility] [place] [address] [employer] Attendant: Dale Walker DO Platelets (Bld) [#/Vol] 230 10*3/uL Normal 150-450 [facility] Comment on above: Performed By: #### C FET #### [facility] [place] [address] [employer] Attendant: Dale Walker DO RBC (Bld) [#/Vol] 4.06 10*6/uL Normal 4.0-5.2 [facility] Comment on above: Performed By: #### C FET #### [facility] [address] [facility] [place] [address] [employer] Attendant: Dale Walker DO WBC (Bld) [#/Vol] 10.2 10*3/uL Normal 3.5-11.0 [facility] Comment on above: Performed By: #### C FET #### [facility] [address] [facility] [place] [address] [employer] Attendant: Dale Walker DO Glucose Rosaura. 3 hron 08-25-19 22 3 Hr 72 mg/dL Normal 65-139 [facility] Comment on above: Performed By: #### C FET #### [facility] [address] [place] [address] [employer] Attendant: Dale Walker DO 1 Hr 169 mg/dL Normal 65-179 [facility] Comment on above: Performed By: #### C FET #### [facility] [place] [address] [employer] Attendant: Dale Walker DO 2 Hr 140 mg/dL Normal 65-154 [facility] Comment on above: Performed By: #### C FET #### [facility] [address] [place] [address] [employer] Attendant: Dale Walker DO Fasting 89 mg/dL Normal 65-94 [facility] Comment on above: Performed By: #### C FET #### [facility] [address] [place] [address] [employer] Attendant: Dale Walker DO Glucose given 100 g Normal [facility] Comment on above: Performed By: #### C FET #### [facility] [place] [address] [employer] Attendant: Dale Walker DO RhIg Workup (RhoGam)on 08-24 RhIg Workup (RhoGam) Blood Component Typ e MANUFACTURED PRODUCT Units Ordered 1 ABO/Rh(D) O NEGATIVE Antibody Screen NEGATIVE History Check O NEGATIVE Unit Number [id number] Blood Component Type RHIG Unit Division 00 Status of Unit TRANSFUSED Transfusion Status OK TO TRANSFUSE Normal [facility] Comment on above: Performed By: #### T RHIGW #### [facility] [address] [place] [address] [employer] Attendant: Dale Walker DO [facility] 07-14-2021 Send Out Report FORWARD TO [facility] Comment on above: Performed By: #### C MIS #### [address] [address] [employer] Attendant: Jacob Ring MD [facility] 07-13-2021 Test Name [facility] Comment on above: Performed By: #### C MIS #### [address] [address] [employer] Attendant: Jacob Ring MD [facility] 06-30-2021 Send Out Report FORWARD TO [facility] [phone] [facility] Comment on above: Performed By: #### B HCG #### [address] [address] [employer] Attendant: Jacob Ring MD [facility] 06-29-2021 Test Name [facility] Comment on above: Performed By: #### B HCG #### [address] [address] [employer] Attendant: Jacob Ring MD Maternal Serum Scr 4on 06-09 Determined by Ultrasound [facility] Comment on above: Performed By: #### A QUADM #### [address] [address] [employer] Attendant: Jacob Ring MD [address] [address] [employer] Attendant: Chavez Prakash MD Dimeric Inhibin A 136 pg/mL [facility] Comment on above: Performed By: #### A QUADM #### [address] [address] [employer] Attendant: MD [facility] [address] [place] [address] [employer] Attendant: Chavez Prakash MD Due Date SEE NOTE [facility] Comment on above: Result Comment: Resu lts for Estimated Due Date: 11 13 21 Performed By: #### A QUADM #### [address] [address] [employer] Attendant: Jacob Ring MD [facility] [address] [place] [address] [employer] Attendant: Chavez Prakash MD Family History No [facility] Comment on above: Performed By: #### A QUADM #### [address] [address] [employer] Attendant: Jacob Ring MD [address] [address] [employer] Attendant: Chavez Prakash MD Gestat Age (exact) 17 wks, 1 days Normal [facility] Comment on above: Performed By: #### A QUADM #### [address] [address] [employer] Attendant: Jacob Ring MD [address] [address] [employer] Attendant: Chavez Prakash MD Hx Aneuploidy No [facility] Comment on above: Performed By: #### A QUADM #### [address] [address] [employer] Attendant: Jacob Ring MD [facility] [address] [place] [address] [employer] Attendant: Cahvez Prakash MD Ins Req Matern Diab [facility] Comment on above: Performed By: #### A QUADM #### [address] [address] [employer] Attendant: Jacob Ring MD [address] [address] [employer] Attendant: Chavez Prakash MD Interpretation Screen Pos Abnormal [facility] Comment on above: Result Comment: (NOT E) INTERPRETATION: SCREEN POSITIVE Follow-up for risk of Down syndrome is suggested Neural Tube Defects (NTD) Negative Down syndrome (DS) Positive Trisomy 18 (T18) Negative Pre-Test Post-Test Cutoff Neural Tube Defects Risks 1:1030 < 1:39284 1:250 Down Syndrome Risks 1:81 1:63 1:150 Trisomy 18 Risks 1:315 1:5350 1:100 Comments: The risk of an open neural tube defect is less than the screening cut-off. The risk of Down syndrome is greater than the screening cut-off. Other outcomes of positive screens include normal , over-estimated gestational age, and demise. Genetic counseling regarding the risks and benefits of cell-free DNA (NIPT) and diagnostic testing is suggested. If you have questions regarding this screen, please call Genetics at [phone] ext [phone]. The risk of trisomy 18 is less than the screening cut-off. This test was developed and its performance characteristics determined by [employer]. It has not been cleared or approved by the [place] Food and Drug Administration. This test was performed in a CLIA certified laboratory and is intended for clinical purposes. Performed By: #### A QUADM #### [facility] [address] [place] [address] [employer] Attendant: Jacob Ring MD [facility] [employer] [address] [place] [phone] [employer] Attendant: Chavez Prakash MD [facility] Enhanced Rpt See Note Normal [facility] Comment on above: Result Comment: (NOT E) Access [facility] Enhanced Report using the link below: -Direct access: [email or web address] Performed By: [employer] [address] [place] [address] [employer] Operator: Susana Marie MD Performed By: #### A QUADM #### [address] [address] [employer] Attendant: Jacob Ring MD [facility] [address] [place] [address] [employer] Attendant: Chavez Prakash MD [age] [facility] Comment on above: Performed By: #### A QUADM #### [address] [address] [employer] Attendant: Jacob Ring MD [facility] [address] [place] [address] [employer] Attendant: Chavez Prakash MD Maternal Race Nonblack [facility] Comment on above: Performed By: #### A QUADM #### [address] [address] [employer] Attendant: Jacob Ring MD [address] [id number] [employer] Attendant: Chavez Prakash MD Maternal Weight 331.0 lbs. [facility] Comment on above: Performed By: #### A QUADM #### [address] [address] [employer] Attendant: Jacob Ring MD [address] [phone] [employer] Attendant: Chavez Prakash MD MoM Dimeric Inhib A 1.80 [facility] Comment on above: Performed By: #### A QUADM #### [address] [address] [employer] Attendant: Jacob Ring MD [facility] [address] [place] [place], [place] [id number] [employer] Attendant: Chavez Prakash MD MoM for AFP 0.84 [facility] Comment on above: Performed By: #### A QUADM #### [address] [address] [employer] Attendant: Jacob Ring MD [facility] [address] [place] [address] [employer] Attendant: Chavez Prakash MD MoM for HCG, Tri 2 1.45 Normal [facility] Comment on above: Performed By: #### A QUADM #### [address] [address] [employer] Attendant: Jacob Ring MD [facility] [address] [place] [address] [employer] Attendant: Chavez Prakash MD MoM for uE3 0.89 Normal [facility] Comment on above: Performed By: #### A QUADM #### [address] [address] [employer] Attendant: Jacob Ring MD [address] [phone] [employer] Attendant: Chavez Prakash MD Number of Fetuses Ortega Normal [facility] Comment on above: Performed By: #### A QUADM #### [address] [address] [employer] Attendant: Jacob Ring MD [address] [address] [employer] Attendant: Chavez Prakash MD Patient's AFP 20 ng/mL [facility] Comment on above: Performed By: #### A QUADM #### [address] [address] [employer] Attendant: Jacob Ring MD [facility] [address] [place] [address] [employer] Attendant: Chavez Prakash MD Patient's HCG, Tri 2 52161 IU/L Normal [facility] Comment on above: Performed By: #### A QUADM #### [address] [address] [employer] Attendant: Jacob Ring MD [facility] [address] [place] [address] [employer] Attendant: Chavez Prakash MD Patient's uE3 0.87 ng/mL [facility] Comment on above: Performed By: #### A QUADM #### [address] [address] [employer] Attendant: Jacob Ring MD [facility] [address] [place] [address] [employer] Attendant: Chavez Prakash MD Smoking Unknown [facility] Comment on above: Performed By: #### A QUADM #### [address] [address] [employer] Attendant: Jacob Ring MD [address] [address] [employer] Attendant: Chavez Prakash MD Specimen See Note [facility] Comment on above: Result Comment: Init ial sample Performed By: #### A QUADM #### [address] [address] [employer] Attendant: Jacob Ring MD [address] [address] [employer] Attendant: Chavez Prakash MD Maternal Serum Scr 4on 06-07 Current Smoking INFORMATION NOT PROVIDED [facility] Comment on above: Performed By: #### A QUADM #### [address] [address] [employer] Attendant: Jacob Ring MD [facility] [address] [place] [place], [place] [id number] [employer] Attendant: Chavez Prakash MD Dating [facility] Comment on above: Performed By: #### A QUADM #### [address] [address] [employer] Attendant: Jacob Ring MD [facility] [address] [place] [address] [employer] Attendant: Chavez Prakash MD Diabetic Negative [facility] Comment on above: Performed By: #### A QUADM #### [address] [address] [employer] Attendant: Jacob Ring MD [address] [address] [employer] Attendant: Chavez Prakash MD Donor Egg INFORMATION NOT PROVIDED [facility] Comment on above: Performed By: #### A QUADM #### [address] [address] [employer] Attendant: Jacob Ring MD [address] [address] [employer] Attendant: Chavez Prakash MD Estimated Due Date [facility] Comment on above: Performed By: #### A QUADM #### [address] [address] [employer] Attendant: Jacob Ring MD [address] [address] [employer] Attendant: Chavez Prakash MD Family History Negative [facility] Comment on above: Performed By: #### A QUADM #### [address] [address] [employer] Attendant: Jacob Ring MD [address] [address] [employer] Attendant: Chavez Prakash MD In Vitro Fertalizat INFORMATION NOT PROVIDED [facility] Comment on above: Performed By: #### A QUADM #### [address] [address] [employer] Attendant: Jacob Ring MD [address] [address] [employer] Attendant: Chavez Prakash MD LMP date [id number] [facility] Comment on above: Performed By: #### A QUADM #### [address] [address] [employer] Attendant: Jacob Ring MD [facility] [address] [place] [address] [employer] Attendant: Chavez Prakash MD Maternal date [id number] [facility] Comment on above: Performed By: #### A QUADM #### [address] [address] [employer] Attendant: Jacob Ring MD [facility] [address] [place] [address] [employer] Attendant: Chavez Prakash MD Maternal Weight 331 [facility] Comment on above: Performed By: #### A QUADM #### [address] [address] [employer] Attendant: Jacob Ring MD [facility] [address] [place] [address] [employer] Attendant: Chavez Prakash MD Monochorionic Twins INFORMATION NOT PROVIDED [facility] Comment on above: Performed By: #### A QUADM #### [address] [address] [employer] Attendant: Jacob Ring MD [facility] [address] [place] [address] [employer] Attendant: Chavez Prakash MD Patient Weight Units [facility] Comment on above: Performed By: #### A QUADM #### [address] [address] [employer] Attendant: Jacob Ring MD [facility] [address] [place] [address] [employer] Attendant: Chavez Prakash MD Prev Trisomy Preg INFORMATION NOT PROVIDED [facility] Comment on above: Performed By: #### A QUADM #### [address] [address] [employer] Attendant: Jacob Ring MD [address] [address] [employer] Attendant: Chavez Prakash MD Race (Maternal) WHITE Normal [facility] Comment on above: Performed By: #### A QUADM #### [address] [address] [employer] Attendant: Jacob Ring MD [address] [address] [employer] Attendant: Chavez Prakash MD Repeat Specimen INFORMATION NOT PROVIDED [facility] Comment on above: Performed By: #### A QUADM #### [address] [address] [employer] Attendant: Jacob Ring MD [address] [address] [employer] Attendant: Chavez Prakash MD Valproic/Carbamazep INFORMATION NOT PROVIDED [facility] Comment on above: Performed By: #### A QUADM #### [address] [address] [employer] Attendant: Jacob Ring MD [address] [address] [employer] Attendant: Chavez Prakash MD Cult,Urineon 05-19-2021 Cult,Urine Specimen Description .CLEAN CATCH URINE Special Requests NOT REPORTED Culture NO SIGNIFICANT GROWTH Report Status FINAL 05/18/2021 [facility] Comment on above: Performed By: #### B HCG #### [address] [address] [employer] Attendant: Jacob Ring MD UA w/Reflex Cultureon 2021 Bilirubin, SemiQt,Ur Negative Normal NEG [facility] Comment on above: Performed By: #### C MIS #### [address] [address] [employer] Attendant: Jacob Ring MD Blood, Urine Negative Normal NEG [facility] Comment on above: Performed By: #### C MIS #### [address] [address] [employer] Attendant: Jacob Ring MD Clarity (U) Cloudy Abnormal CLEAR [facility] Comment on above: Performed By: #### C MIS #### [address] [address] [employer] Attendant: Jacob Ring MD Color (U) Yellow Normal YEL [facility] Comment on above: Performed By: #### C MIS #### [address] [address] [employer] Attendant: Jacob Ring MD Glucose Ql (U) Negative Normal NEG [facility] Comment on above: Performed By: #### C MIS #### [address] [address] [employer] Attendant: Jacob Ring MD Ketones Ql (U) Negative Normal NEG [facility] Comment on above: Performed By: #### C MIS #### [address] [address] [employer] Attendant: Jacob Ring MD Leukocyte esterase Test strip Ql (U) Negative Normal NEG [facility] Comment on above: Performed By: #### C MIS #### [address] [address] [employer] Attendant: Jacob Ring MD Nitrite,Ur Negative Normal NEG [facility] Comment on above: Performed By: #### C MIS #### [address] [address] [employer] Attendant: Jacob Ring MD PH,Ur 7.5 Normal 5.0-8.0 [facility] Comment on above: Performed By: #### C MIS #### [address] [address] [employer] Attendant: Jacob Ring MD Protein Ql (U) Negative Normal NEG [facility] Comment on above: Performed By: #### C MIS #### [address] [address] [employer] Attendant: Jaocb Ring MD Spec. [place],Ur 1.021 Normal 1.005-1.030 [facility] Comment on above: Performed By: #### C MIS #### [address] [address] [employer] Attendant: Jacob Ring MD Urobilinogen,Ur Normal Normal NORM [facility] Comment on above: Performed By: #### C MIS #### [address] [address] [employer] Attendant: Jacob Ring MD Comment NOT REPORTED Normal [facility] Comment on above: Performed By: #### C MIS #### [address] [address] [employer] Attendant: Jacob iRng MD Urinalysis,Microon 2 ----- Normal [facility] Comment on above: Performed By: #### C MIS #### [address] [address] [employer] Attendant: Jacob Ring MD Bacteria MODERATE Abnormal NONE [facility] Comment on above: Performed By: #### C MIS #### [address] [address] [employer] Attendant: Jacob Ring MD Casts 2 TO 5 HYALINE Normal 0-8 [facility] Comment on above: Result Comment: Refe rence range defined for non-centrifuged specimen. Performed By: #### C MIS #### [address] [address] [employer] Attendant: Jacob Ring MD Epithelial cells LM Ql (Urine sed) 20 TO 50 Normal 0-5 [facility] Comment on above: Performed By: #### C MIS #### [address] [address] [employer] Attendant: Jacob Ring MD Urine RBC's 0 TO 2 Normal 0-4 [facility] Comment on above: Result Comment: Refe rence range defined for non-centrifuged specimen. Performed By: #### C MIS #### [address] [address] [employer] Attendant: Jacob Ring MD Urine WBC's 5 TO 10 Normal 0-5 [facility] Comment on above: Performed By: #### C MIS #### [address] [address] [employer] Attendant: Jacob Ring MD Amorphous sediment LM Ql (Urine sed) NOT REPORTED Normal [facility] Comment on above: Performed By: #### C MIS #### [address] [address] [employer] Attendant: Jacob Ring MD Crystals LM Nom (Urine sed) NOT REPORTED Normal NONE [facility] Comment on above: Performed By: #### C MIS #### [address] [address] [employer] Attendant: Jacob Ring MD Epithelial, Renal NOT REPORTED Normal 0 [facility] Comment on above: Performed By: #### C MIS #### [address] [address] [employer] Attendant: Jacob Ring MD Mucus Strands NOT REPORTED Normal NONE [facility] Comment on above: Performed By: #### C MIS #### [address] [address] [employer] Attendant: Jacob Ring MD Other Observations NOT REPORTED Normal NREQ [facility] [place] Comment on above: Performed By: #### C MIS #### [address] [address] [employer] Attendant: Jacob Ring MD Trichomonas NOT REPORTED Normal NONE [facility] Comment on above: Performed By: #### C MIS #### [address] [address] [employer] Attendant: Jacob Ring MD Yeast NOT REPORTED Normal NONE [facility] Comment on above: Performed By: #### C MIS #### [address] [address] [employer] Attendant: Jacob Ring MD Glucose Rosaura. 3 hron 05-16-19 22 2 Hr 110 mg/dL Normal 65-154 [facility] Comment on above: Performed By: #### U RC #### [facility] [place] [address] [employer] Attendant: Dale Walker DO [address] [address] [employer] Attendant: Jacob Ring MD 3 Hr 76 mg/dL Normal 65-139 [facility] Comment on above: Performed By: #### U RC #### [facility] [address] [place] [address] [employer] Attendant: Dale Walker DO [address] [address] [employer] Attendant: Jacob Ring MD 1 Hr 186 mg/dL High 65-179 [facility] Comment on above: Performed By: #### U RC #### [facility] [address] [facility] [address] [employer] Attendant: Dale Walker [facility] [address] [place] [address] [employer] Attendant: Jacob Ring MD Fasting 92 mg/dL Normal 65-94 [facility] Comment on above: Performed By: #### U RC #### [facility] [address] [place] [address] [employer] Attendant: Dale Walker [address] [address] [employer] Attendant: Jacob Ring MD Glucose given 100 g Normal [facility] Comment on above: Performed By: #### U RC #### [facility] [address] [place] [address] [employer] Attendant: Dale Walker [address] [address] [employer] Attendant: Jacob Ring MD HPV DNA High Riskon 04-15-20 21 HPV Interp [facility] Comment on above: Result Comment: This test amplifies and detects DNA of 14 high-risk HPV types associated with cervical cancer and its precursor lesions (HPV types 16,18, 31, 33, 35, 39, 45, 51, 52, 56, 58, 59, 66, and 68). Sensitivity may be affected by specimen collection methods, stage of infection, and the presence of interfering substances. Results should be interpreted in conjunction with other available laboratory and clinical data. A negative high-risk HPV result does not exclude the possibility of future cytologic HSIL or underlying CIN2-3 or cancer. This test is intended for medical purposes only and is not valid for the evaluation of suspected sexual abuse or for other forensic purposes. Performed By: #### H PV #### [address] [address] [employer] Attendant: Jacob Ring MD HPV Type 16 Not detected Normal [facility] Comment on above: Performed By: #### H PVH #### [facility] [place] [address] [employer] Attendant: Jacob Ring MD HPV Type 18 Not detected Normal [facility] Comment on above: Performed By: #### H PVH #### [facility] [address] [place] [address] [employer] Attendant: Jacob Ring MD Other High Risk HPV Not detected Normal [facility] Comment on above: Performed By: #### H PVH #### [address] [address] [employer] Attendant: Jacob Ring MD Chlamydia/GC,DNA Ampon 04-14 Chlamydia Probe Negative Normal NEG [facility] Comment on above: Result Comment: CHLA MYDIA TRACHOMATIS DNA not detected by nucleic acid amplification. This test is intended for medical purposes only and is not valid for the evaluation of suspected sexual abuse or for other forensic purposes. In certain contexts, culture may be required to meet applicable laws and regulations for diagnosis of C. trachomatis and N. gonorrhoeae infections. Per 2014 CDC recommendations, this test does not include confirmation of positive results by an alternative nucleic acid target. Performed By: #### S WCGP #### [address] [address] [employer] Attendant: Jacob Ring MD Gonorrhea Probe Negative Normal NEG [facility] Comment on above: Result Comment: NEIS SERIA GONORRHOEAE DNA not detected by nucleic acid amplification. This test is intended for medical purposes only and is not valid for the evaluation of suspected sexual abuse or for other forensic purposes. In certain contexts, culture may be required to meet applicable laws and regulations for diagnosis of C. trachomatis and N. gonorrhoeae infections. Per 2014 CDC recommendations, this test does not include confirmation of positive results by an alternative nucleic acid target. Performed By: #### S WCGP #### [address] [address] [employer] Attendant: Jacob Ring MD Glucose Rosaura Scr 50gon 2020 Glucose [Mass/Vol] 136 mg/dL High 70-135 [facility] Comment on above: Performed By: #### B HCG #### [address] [address] [employer] Attendant: Jacob Ring MD Glu Administered via Glucola Normal [facility] [place] Comment on above: Performed By: #### B HCG #### [address] [address] [employer] Attendant: Jacob Ring MD HIV Ag/Abon 04-14-2021 HIV Ag/Ab Non-Reactive Normal NR [facility] Comment on above: Result Comment: No l aboratory evidence of HIV infection. If acute HIV infection is suspected, consider testing for HIV-1 RNA. Performed By: #### B HCG #### [address] [address] [employer] Attendant: Jacob Ring MD HPV DNA High Riskon 04-14-20 21 HPV Sample .THIN PREP Normal [facility] Comment on above: Performed By: #### H PVH #### [address] [address] [employer] Attendant: Jacob Ring MD Source .CERVIX Normal [facility] Comment on above: Performed By: #### H PVH #### [address] [address] [employer] Attendant: Jacob Ring MD Profileon 1 T.pallidum Ab Screen Non-Reactive Normal NR [facility] Comment on above: Result Comment: T. pallidum antibodies are not detected. There is no serological evidence of infection with T. pallidum (early primary syphilis cannot be excluded). Retest in 2-4 weeks if syphilis is clinically suspect. Performed By: #### B HCG #### [address] [address] [employer] Attendant: Jacob Ring MD Hep B Surf Ag Non-Reactive Normal NR [facility] Comment on above: Performed By: #### B HCG #### [place] [address] [employer] Attendant: Jacob Ring MD Rubella Ab, IgG 31.3 IU/mL Normal [facility] Comment on above: Result Comment: REFERENCE RANGE: <5.0 NON-REACTIVE (non-immune) 5.0 TO 9.9 EQUIVOCAL >=10.0 REACTIVE (immune) Performed By: #### B HCG #### [place] [address] [employer] Attendant: Jacob Ring MD Abs. Basophil <0.03 Normal 0.00-0.20 [facility] Comment on above: Performed By: #### B HCG #### [place] [address] [employer] Attendant: Jacob Ring MD Abs.Imm.Granulocyte <0.03 Normal 0.00-0.30 [facility] Comment on above: Performed By: #### B HCG #### [place] [address] [employer] Attendant: Jacob Ring MD Abs.Neutrophil (Seg) 6.40 k/uL Normal 1.50-8.10 [facility] [place] Comment on above: Performed By: #### B HCG #### [place] [address] [employer] Attendant: Jacob Ring MD Basophils/100 WBC (Bld) 0 % Normal 0-2 [facility] Comment on above: Performed By: #### B HCG #### [place] [address] [employer] Attendant: Jacob Ring MD Eosinophils (Bld) [#/Vol] 0.06 10*3/uL Normal 0.00-0.44 [facility] Comment on above: Performed By: #### B HCG #### [address] [address] [employer] Attendant: Jacob Ring MD Eosinophils/100 WBC (Bld) 1 % Normal 1-4 [facility] Comment on above: Performed By: #### B HCG #### [address] [address] [employer] Attendant: Jacob Ring MD Erythrocyte distribution width (RBC) [Ratio] 16.2 % High 11.8-14.4 [facility] Comment on above: Performed By: #### B HCG #### [address] [address] [employer] Attendant: Jacob Ring MD Hematocrit (Bld) [Volume fraction] 40.0 % Normal 36.3-47.1 [facility] Comment on above: Performed By: #### B HCG #### [address] [address] [employer] Attendant: Jacob Ring MD Hemoglobin (Bld) [Mass/Vol] 12.2 g/dL Normal 11.9-15.1 [facility] Comment on above: Performed By: #### B HCG #### [address] [address] [employer] Attendant: Jacob Ring MD Immature granulocytes/100 WBC (Bld) 0 % Normal 0 [facility] Comment on above: Performed By: #### B HCG #### [address] [address] [employer] Attendant: Jacob Ring MD Lymphocytes (Bld) [#/Vol] 1.46 10*3/uL Normal 1.10-3.70 [facility] Comment on above: Performed By: #### B HCG #### [address] [place] [address] [employer] Attendant: Jacob Ring MD Lymphocytes/100 WBC (Bld) 18 % Low 24-43 [facility] Comment on above: Performed By: #### B HCG #### [address] [address] [employer] Attendant: Jacob Ring MD MCH (RBC) [Entitic mass] 26.6 pg Normal 25.2-33.5 [facility] Comment on above: Performed By: #### B HCG #### [address] [address] [employer] Attendant: Jacob Ring MD MCHC (RBC) [Mass/Vol] 30.5 g/dL Normal 28.4-34.8 [facility] Comment on above: Performed By: #### B HCG #### [address] [address] [employer] Attendant: Jacob Ring MD MCV (RBC) [Entitic vol] 87.3 fL Normal 82.6-102.9 [facility] Comment on above: Performed By: #### B HCG #### [address] [address] [employer] Attendant: Jacob Ring MD Monocytes (Bld) [#/Vol] 0.39 10*3/uL Normal 0.10-1.20 [facility] Comment on above: Performed By: #### B HCG #### [address] [address] [employer] Attendant: Jacob Ring MD Monocytes/100 WBC (Bld) 5 % Normal 3-12 [facility] Comment on above: Performed By: #### B HCG #### [address] [address] [employer] Attendant: Jacob Ring MD Neutrophil (Seg) 76 % High 36-65 [facility] Comment on above: Performed By: #### B HCG #### [address] [address] [employer] Attendant: Jacob Ring MD NRBC Automated 0.0 per 100 WBC Normal 0.0 [facility] Comment on above: Performed By: #### B HCG #### [address] [address] [employer] Attendant: Jacob Ring MD Platelet mean volume (Bld) [Entitic vol] 11.8 fL Normal 8.1-13.5 [facility] Comment on above: Performed By: #### B HCG #### [address] [address] [employer] Attendant: Jacob Ring MD Platelets (Bld) [#/Vol] 241 10*3/uL Normal 138-453 [facility] Comment on above: Performed By: #### B HCG #### [address] [address] [employer] Attendant: Jacob Ring MD RBC (Bld) [#/Vol] 4.58 10*6/uL Normal 3.95-5.11 [facility] Comment on above: Performed By: #### B HCG #### [address] [address] [employer] Attendant: Jacob Ring MD RBC morphology finding Nom (Bld) ANISOCYTOSIS PRESENT Normal [facility] Comment on above: Performed By: #### B HCG #### [address] [address] [employer] Attendant: Jacob Ring MD WBC (Bld) [#/Vol] 8.4 10*3/uL Normal 3.5-11.3 [facility] Comment on above: Performed By: #### B HCG #### [address] [address] [employer] Attendant: Jacob Ring MD Auto Diff Performed NOT REPORTED Normal [facility] Comment on above: Performed By: #### B HCG #### [address] [address] [employer] Attendant: Jacob Ring MD Platelet Comment NOT REPORTED Normal [facility] Comment on above: Performed By: #### B HCG #### [address] [address] [employer] Attendant: Jacob Ring MD WBC Morphology NOT REPORTED Normal [facility] Comment on above: Performed By: #### B HCG #### [address] [address] [employer] Attendant: Jacob Ring MD Type + Scrnon 04-14 Type + Scrn Negative Normal [facility] [place] Comment on above: Performed By: #### C MIS #### [address] [address] [employer] Attendant: Jacob Ring MD Sickle Cell Screenon 021 Sickle Cell Screen Negative Normal [facility] Comment on above: Performed By: #### B HCG #### [address] [address] [employer] Attendant: Jacob Ring MD Thyroid Stim. Horm.on 2020 TSH Qn 1.59 m[IU]/L Normal 0.30-5.00 [facility] Comment on above: Performed By: #### B HCG #### [address] [address] [employer] Attendant: Jacob Ring MD Vaginitis DNA Probeon 2020 Vaginitis DNA Probe Specimen Description .VAGINA Special Requests NOT REPORTED Direct Exam POSITIVE for Gardnerella vaginalis. NEGATIVE for Trichomonas vaginalis NEGATIVE for Vira sp. Method of testing is a DNA probe intended for detection and identification of Vira species, Gardnerella vaginalis, and Trichomonas vaginalis nucleic acid in vaginal fluid specimens from patients with symptoms of vaginitis/vaginosis. Report Status FINAL 04/14/2021 Normal [facility] Comment on above: Performed By: #### C MIS #### [facility] [address] [place] [address] [employer] Attendant: Jacob Ring MD Cytologyon 04-13-2021 Cytology (NOTE) INTERPRETATION Cervical material, (ThinPrep vial, Imaging-assisted review): Specimen Adequacy: Satisfactory for evaluation. -Endocervical/transformati on zone component is absent. Descriptive Diagnosis: Negative for intraepithelial lesion or malignancy. Comments: High Risk HPV testing was ordered. Potato Loader: KATHYA Whitmore(ASCP) Electronically Signed Out /04/21/2021 Procedure/Addendum HPV Procedure Report Date Ordered: 04/15/2021 Status: Signed Out Date Complete: 04/15/2021 By: KATHYA Dupont(ASCP) Date Reported: 04/22/2021 INTERPRETATION Mary HPV DNA High Risk HPV Sample Thin Prep (Ref Range) HPV Type 16 Not Detected (Not Detected) HPV Type 18 Not Detected (Not Detected) Other High Risk HPV Not Detected (Not Detected) This test amplifies and detects DNA of 14 high-risk HPV types associated with cervical cancer and its precursor lesions (HPV types 16, 18, 31, 33, 35, 39, 45, 51, 52, 56, 58, 59, 66, and 68). Sensitivity may be affected by specimen collection methods, stage of infection, and the presence of interfering substances. Results should be interpreted in conjunction with other available laboratory and clinical data. A negative high-risk HPV result does not exclude the possibility of future cytologic HSIL or underlying CIN2-3 or cancer. This test is intended for medical purposes only and is not valid for the evaluation of suspected sexual abuse or for other forensic purposes. Source: 1: Cervical material, (ThinPrep vial, Imaging-assisted review) Clinical History Co-Test: ThinPrep Pap with high risk HPV testing LMP: 01/26/2021 GYNECOLOGIC CYTOLOGY REPORT Patient Name: JUANIS ONEILL [facility] Rec: [id number] Path Number: [id number] [facility]AT[facility] [address] [facility]. [place], [place] [address] Normal [facility] Comment on above: Performed By: #### B HCG #### [employer] [facility] [place], [place] [id number] [employer] Attendant: Jacob Ring MD DNA Testingon 04-13-2021 DNA Testing (NOTE) Specimen(s) Received: Peripheral blood, CF Clinical Information: No Family History of Cystic Fibrosis Screening for Cystic Fibrosis RESULTS: This patient is negative for all CF mutations analyzed Due to the complex nature of this testing, genetic counseling is recommended This interpretation is based on the assumption that this individual has a negative personal and family history for cystic fibrosis INTERPRETATION: Using the methods described, this patient tested negative for all 60 mutations screened, including those recommended by the [place] [employer] and the [place] [employer]. These results do not rule out the possibility that this individual could carry a CF mutation not detected by this test. The patient should understand that DNA studies do not constitute a definitive carrier test for cystic fibrosis in all individuals. Thus, interpretation is given as a probability (see below). Accurate risk calculation requires accurate family history information. Inaccurate reporting of a family history of cystic fibrosis will lead to errors in residual risk assessment. It should be realized that there are many sources of diagnostic error in molecular testing which may include trace contamination of PCR reactions, rare genetic variants that can interfere with the analysis, or general laboratory error. Cystic Fibrosis Carrier Rate by Racial and Ethnic Group, Before and After Screening [from Carlos et al (2001): Ritu in Med 3(2), 149-154] Estimated Carrier Risk Ethnic Group Detection Rate Before Test After Negative Test Ashkenazi Gnosticist 97% 06/11 90% 06/11 69% * [place]an 57% [place]an No data available No data available *Additional information required to accurately predict risk Note: Residual carrier risk after negative test is modified by presence of positive family history of CF or by admixture of ethnic groups. For these situations, accurate risk assessment requires Bayesian analysis and genetic counseling This molecular test has been approved for in vitro diagnostic use by the U.S. FDA. This test is used for clinical purposes. Pursuant to the requirements of CLIA '88, this laboratory has established and verified the test's accuracy and precision. It should not be regarded as investigational or for research. This laboratory is certified under the Clinical Laboratory Improvement Amendments of 1988 (CLIA '88) as qualified to perform high complexity clinical laboratory testing. Methodology: Samples are tested for the presence of wild type or mutant gene sequences in the CFTR gene by the [email or web address] Cystic Fibrosis 60 Kit. It is comprised of a single multiplex PCR reaction that is then used in two separate Allele Specific Primer Extension reactions, which are followed by two separate bead hybridization reactions. The [employer] Assay screens for 60 CFTR mutations, including the standard 23 mutation core panel recommended by the [place] [employer] (ACOG) and the [place] [employer] (ACMG): fF508, fI507, G542X, G85E, R117H, 621+1G>T, 711+1G>T, T1251N, R334W, R347P, A455E, 1717-1G>A, R560T, R553X, G551D, 1898+1G>A, 2184delA, 2789+5G>A, 3120+1G>A, M5274K, 3659delC, 3849+10kbC>T, A5586W, 1078delT, 394delTT, Y122X, R347H, V520F, A559T, S549N, S549R, 1898+5G>T, 2183AA>G, 2307insA, C3220Z, A3900H, W6518T, 3876delA, 3905insT, CFTRdele2,3, E60X, R75X, 406-1G>A, G178R, F5591B, L206W, 935delA, G330X, Q493X, Q890X, 1677delTA, 3419mtn8>A, 2143delT, K710X, H4649I, 4607qne2, N8146X, S2786F, H5696D, 3791delC and variants 5T/7T/9T, F508C, I507V, I506V. For samples positive for R117H, the IVS-8 Poly T variant is analyzed. Electronically Signed Out Kvng Zavala M.D. [facility] [address] [place] [id number] CYSTIC FIBROSIS MUTATION ANALYSIS REPORT [place] [facility] [employer] Lance Hernadez MD, Kvng Zavala MD Normal [facility] Comment on above: Performed By: #### B HCG #### [address] [id number] [employer] Attendant: Jacob Ring MD OB TRANSVAGINALon 021 US OB TRANSVAGINAL Please see results, narrative and impression on imaging tab. Interpreted by: Carmencita Andres MD Signed by: Carmencita Andres MD 03/30/21 Final result Normal [facility] HCG, Quanton 03-18-2021 HCG, Quant 6958 IU/L High <5 [facility] Comment on above: Result Comment: Non-preg premeno <=5 Postmeno <=8 Male <=3 If HCG results do not concur with clinical observations, additional testing to confirm results is recommended. Elevated results not associated with may be found in patients with other diseases such as tumors of the germ cells (testis, ovaries, etc.), bladder, pancreas, stomach, lungs, and liver. Performed By: #### B HCG #### [address] [id number] [employer] Attendant: Jacob Ring MD HCG, Quantitative, Ordered By: Amelia Aguilar on 03-18-2021 hCG Quant 6958 High <5 IU/L [facility] [employer] Work Phone: Comment on above: Non-preg premeno <=5 Postmeno <=8 Male <=3 If HCG results do not concur with clinical observations, additional testing to confirm results is recommended. Elevated results not associated with may be found in patients with other diseases such as tumors of the germ cells (testis, ovaries, etc.), bladder, pancreas, stomach, lungs, and liver. Interpretation and review of laboratory results Abnormal ACell Phone: ACell Phone: HCG, Quanton 03-17-2021 HCG, Quant 4456 IU/L High <5 [facility] Comment on above: Result Comment: Non-preg premeno <=5 Postmeno <=8 Male <=3 If HCG results do not concur with clinical observations, additional testing to confirm results is recommended. Elevated results not associated with may be found in patients with other diseases such as tumors of the germ cells (testis, ovaries, etc.), bladder, pancreas, stomach, lungs, and liver. Performed By: #### C MIS #### [employer] [address] [place] [address] [phone] [employer] Attendant: Jacob Ring MD HCG, Quanton 03-15-2021 HCG, Quant 2737 IU/L High <5 [facility] Comment on above: Result Comment: Non-preg premeno <=5 Postmeno <=8 Male <=3 If HCG results do not concur with clinical observations, additional testing to confirm results is recommended. Elevated results not associated with may be found in patients with other diseases such as tumors of the germ cells (testis, ovaries, etc.), bladder, pancreas, stomach, lungs, and liver. Performed By: #### B HCG #### [employer] [address] [place] [address] [employer] Attendant: Jacob Ring MD HCG, Quanton 03-11-2021 HCG, Quant 954 IU/L High <5 [facility] Comment on above: Result Comment: Non-preg premeno <=5 Postmeno <=8 Male <=3 If HCG results do not concur with clinical observations, additional testing to confirm results is recommended. Elevated results not associated with may be found in patients with other diseases such as tumors of the germ cells (testis, ovaries, etc.), bladder, pancreas, stomach, lungs, and liver. Performed By: #### C MIS #### [employer] [address] [place] [address] [employer] Attendant: Jacob Ring MD HCG, Quanton 03-10-2021 HCG, Quant 420 IU/L High <5 [facility] Comment on above: Result Comment: Non-preg premeno <=5 Postmeno <=8 Male <=3 If HCG results do not concur with clinical observations, additional testing to confirm results is recommended. Elevated results not associated with may be found in patients with other diseases such as tumors of the germ cells (testis, ovaries, etc.), bladder, pancreas, stomach, lungs, and liver. Performed By: #### B HCG #### [address] [address] [employer] Attendant: Jacob Ring MD Cult,Urineon 03-08-2021 Cult,Urine Specimen Description .CLEAN CATCH URINE Special Requests NOT REPORTED Culture NO SIGNIFICANT GROWTH Report Status FINAL 03/07/2021 Normal [facility] Comment on above: Performed By: #### U RC #### [facility] [address] [place] [address] [employer] Attendant: Dale Walker DO [employer] [address] [place] [address] [phone] [employer] Attendant: Jacob Ring MD CBC Auto DifferentialOrdered By: Brayan Waters on 03-06-2021 Absolute Eos # 0.08 ACell Phone: Absolute Immature Granulocyte NOT REPORTED ACell Phone: Absolute Lymph # 1.82 ACell Phone: Absolute Sequoyah # 0.40 [employer]Cell Phone: Basophils (Bld) [#/Vol] 0.00 10*3/uL ACell Phone: Basophils/100 WBC (Bld) 0 % 0 - 2 % ACell Phone: Differential Type NOT REPORTED [employer] Phone: [phone] Eosinophils/100 WBC (Bld) 1 % 0 - 4 % [employer]Cell Phone: Hematocrit (Bld) [Volume fraction] 36.7 % 36 - 46 % [employer]Cell Phone: Hemoglobin.gastrointe stinal spec 1 Ql (Stl) 12.0 g/dL 12.0 - 16.0 g/dL [employer]Cell Phone: Immature Granulocytes NOT REPORTED 0 % M [employer]ent Phone: Interpretation and review of laboratory results Abnormal [employer]Cell Phone: Lymphocytes/100 WBC (Bld) 23 % Low 24 - 44 % ACell Phone: MCH (RBC) [Entitic mass] 25.9 pg Low 26 - 34 pg [employer]Cell Phone: MCHC (RBC) [Mass/Vol] 32.7 g/dL 31 - 3 7 g/dL [employer]Cell Phone: MCV (RBC) [Entitic vol] 79.2 fL Low 80 - 100 fL [employer]Cell Phone: [phone] Monocytes/100 WBC (Bld) 5 % 1 - 7 % [employer]Cell Phone: Morphology Margarito (Bld) [Interp] ANISOCYTOSIS PRESENT ACell Phone: NRBC Automated NOT REPORTED per 100 WBC [employer]Cell Phone: Platelet distribution width (Bld) [Ratio] 14.9 % 11.5 - 14.9 % ACell Phone: Platelet Estimate NOT REPORTED [employer]Cell Phone: Platelet mean volume (Bld) [Entitic vol] 8.7 fL 6.0 - 12.0 fL ACell Phone: [phone] Platelets (Bld) [#/Vol] 211 10*3/uL [employer]Cell Phone: RBC (Bld) [#/Vol] 4.64 10*6/uL 4.0 - 5.2 m/uL [employer]Cell Phone: RBC (Bld) [#/Vol] NOT REPORTED [employer]Cell Phone: Segmented neutrophils/100 WBC (Bld) 71 % High 36 - 66 % ACell Phone: Segs Absolute 5.60 ACell Phone: WBC (Bld) [#/Vol] 7.9 10*3/uL ACell Phone: WBC (Bld) [#/Vol] NOT REPORTED ACell Phone: ACell Phone: CBC with Diffon 03-06-2021 Abs. Basophil 0.00 k/uL Normal 0.0-0.2 [facility] Comment on above: Performed By: #### U RC #### [facility] [address] [place] [address] [employer] Attendant: Dale Walker DO [employer] [phone] [employer] Attendant: Jacob Rign MD Abs.Neutrophil (Seg) 5.60 k/uL Normal 1.3-9.1 [facility] Comment on above: Performed By: #### U RC #### [facility] [address] [place] [address] [employer] Attendant: Dale Walker [employer] [address] [place] [address] [phone] [employer] Attendant: Jacob Ring MD Basophils/100 WBC (Bld) 0 % Normal 0-2 [facility] Comment on above: Performed By: #### U RC #### [facility] [address] [place] [address] [employer] Attendant: Dale Walker [address] [address] [employer] Attendant: Jacob Ring MD Eosinophils (Bld) [#/Vol] 0.08 10*3/uL Normal 0.0-0.4 [facility] Comment on above: Performed By: #### U RC #### [facility] [address] [place] [address] [employer] Attendant: Dale Walker [employer] [address] [employer] Attendant: Jacob Ring MD Eosinophils/100 WBC (Bld) 1 % Normal 0-4 [facility] Comment on above: Performed By: #### U RC #### [facility] [address] [place] [address] [employer] Attendant: Dale Walker [employer] [address] [employer] Attendant: Jacob Ring MD Lymphocytes (Bld) [#/Vol] 1.82 10*3/uL Normal 1.0-4.8 [facility] Comment on above: Performed By: #### U RC #### [facility] [place] [address] [employer] Attendant: Dale Walker [employer] [address] [employer] Attendant: Jacob Ring MD Lymphocytes/100 WBC (Bld) 23 % Low 24-44 [facility] Comment on above: Performed By: #### U RC #### [facility] [place] [address] [employer] Attendant: Dale Walker [address] [address] [employer] Attendant: Jacob Ring MD Monocytes (Bld) [#/Vol] 0.40 10*3/uL Normal 0.1-1.3 [facility] Comment on above: Performed By: #### U RC #### [facility] [place] [address] [employer] Attendant: Dale Walker [address] [address] [employer] Attendant: Jacob Ring MD Monocytes/100 WBC (Bld) 5 % Normal 1-7 [facility] Comment on above: Performed By: #### U RC #### [facility] [address] [place] [address] [employer] Attendant: Dale Walker [address] [address] [employer] Attendant: Jacob Ring MD Morphology Margarito (Bld) [Interp] ANISOCYTOSIS PRESENT Normal [facility] Comment on above: Performed By: #### U RC #### [facility] [address] [place] [address] [employer] Attendant: Dale Walker [address] [address] [employer] Attendant: Jacob Ring MD Neutrophil (Seg) 71 % High 36-66 [facility] Comment on above: Performed By: #### U RC #### [facility] [address] [place] [address] [employer] Attendant: Dale Walker [address] [address] [employer] Attendant: Jacob Ring MD Erythrocyte distribution width (RBC) [Ratio] 14.9 % Normal 11.5-14.9 [facility] Comment on above: Performed By: #### U RC #### [facility] [address] [place] [address] [employer] Attendant: Dale Walker [address] [address] [employer] Attendant: Jacob Ring MD Hematocrit (Bld) [Volume fraction] 36.7 % Normal 36-46 [facility] Comment on above: Performed By: #### U RC #### [facility] [address] [place] [address] [employer] Attendant: Dale Walker [address] [address] [employer] Attendant: Jacob Ring MD Hemoglobin (Bld) [Mass/Vol] 12.0 g/dL Normal 12.0-16.0 [facility] Comment on above: Performed By: #### U RC #### [facility] [address] [place] [address] [employer] Attendant: Dale Walker [address] [address] [employer] Attendant: Jacob Ring MD MCH (RBC) [Entitic mass] 25.9 pg Low 26-34 [facility] Comment on above: Performed By: #### U RC #### [facility] [address] [place] [address] [employer] Attendant: Dale Walker [address] [address] [employer] Attendant: Jacob Ring MD MCHC (RBC) [Mass/Vol] 32.7 g/dL Normal 31-37 [facility] Comment on above: Performed By: #### U RC #### [facility] [address] [place] [address] [employer] Attendant: Dale Walker [address] [address] [employer] Attendant: Jacob Ring MD MCV (RBC) [Entitic vol] 79.2 fL Low 80-100 [facility] Comment on above: Performed By: #### U RC #### [facility] [address] [place] [address] [employer] Attendant: Dale Walker [address] [address] [employer] Attendant: Jacob Ring MD Platelet mean volume (Bld) [Entitic vol] 8.7 fL Normal 6.0-12.0 [facility] Comment on above: Performed By: #### U RC #### [facility] [address] [place] [address] [employer] Attendant: Dale Walker [address] [address] [employer] Attendant: Jacob Ring MD Platelets (Bld) [#/Vol] 211 10*3/uL Normal 150-450 [facility] Comment on above: Performed By: #### U RC #### [facility] [address] [place] [address] [employer] Attendant: Dale Walker [address] [address] [employer] Attendant: Jacob Ring MD RBC (Bld) [#/Vol] 4.64 10*6/uL Normal 4.0-5.2 [facility] Comment on above: Performed By: #### U RC #### [facility] [address] [place] [address] [employer] Attendant: Dale Walker [address] [address] [employer] Attendant: Jacob Ring MD WBC (Bld) [#/Vol] 7.9 10*3/uL Normal 3.5-11.0 [facility] Comment on above: Performed By: #### U RC #### [facility] [address] [place] [address] [employer] Attendant: Dale Walker [address] [address] [employer] Attendant: Jacob Ring MD Abs.Imm.Granulocyte NOT REPORTED Normal 0.00-0.30 [facility] Comment on above: Performed By: #### U RC #### [facility] [address] [place] [address] [employer] Attendant: Dale Walker [address] [address] [employer] Attendant: Jacob Ring MD Auto Diff Performed NOT REPORTED Normal [facility] Comment on above: Performed By: #### U RC #### [facility] [address] [place] [address] [employer] Attendant: Dale Walker [address] [address] [employer] Attendant: Jacob Ring MD Immature Granulocyte NOT REPORTED Normal 0 [facility] Comment on above: Performed By: #### U RC #### [facility] [address] [place] [address] [employer] Attendant: Dale Walker [address] [address] [employer] Attendant: Jacob Ring MD NRBC Automated NOT REPORTED Normal [facility] Comment on above: Performed By: #### U RC #### [facility] [place] [address] [employer] Attendant: Dale Walker [address] [address] [employer] Attendant: Jacob Ring MD Platelet Comment NOT REPORTED Normal [facility] Comment on above: Performed By: #### U RC #### [facility] [address] [place] [address] [employer] Attendant: Dale Walker [address] [address] [employer] Attendant: Jacob Ring MD RBC morphology finding Nom (Bld) NOT REPORTED Normal [facility] Comment on above: Performed By: #### U RC #### [facility] [address] [place] [address] [employer] Attendant: Dale Walker [address] [address] [employer] Attendant: Jacob Ring MD WBC Morphology NOT REPORTED Normal [facility] Comment on above: Performed By: #### U RC #### [facility] [address] [place] [address] [employer] Attendant: Dale Walker [address] [address] [employer] Attendant: Jacob Ring MD COVID-19, RapidOrdered By: Misha Waters on 03-06-2021 SARS-CoV-2 (COVID-19) RNA LEESA+probe Ql (Unsp spec) Not detected Not Detected [facility] Work Phone: Comment on above: Rapid NAAT: The specimen is NEGATIVE for SARS-CoV-2, the novel coronavirus associated with COVID-19. The ID NOW COVID-19 assay is designed to detect the virus that causes COVID-19 in patients with signs and symptoms of infection who are suspected of COVID-19. An individual without symptoms of COVID-19 and who is not shedding SARS-CoV-2 virus would expect to have a negative (not detected) result in this assay. Negative results should be treated as presumptive and, if inconsistent with clinical signs and symptoms or necessary for patient management, should be tested with an alternative molecular assay. Negative results do not preclude SARS-CoV-2 infection and should not be used as the sole basis for patient management decisions. Fact sheet for Healthcare Providers: https://www.fda.gov/media/502058/download Fact sheet for Patients: https://www.fda.gov/media/835045/download Methodology: Isothermal Nucleic Acid Amplification Specimen Description .NASOPHARYNGEAL SWAB [facility] [employer] Phone: [facility] [employer] Phone: Comp Metabolic Profon 2020 (cont.) Normal [facility] Comment on above: Result Comment: Aver age GFR for 30-39 years old: 107 mL/min/1.73sq m Chronic Kidney Disease: <60 mL/min/1.73sq m Kidney failure: <15 mL/min/1.73sq m eGFR calculated using average adult body mass. Additional eGFR calculator available at: http://www.[employer]/multiple_crcl_2012.htm Performed By: #### U RC #### [facility] [address] [place] [address] [employer] Attendant: Dale Walker DO [address] [address] [employer] Attendant: Jacob Ring MD Albumin [Mass/Vol] 4.0 g/dL Normal 3.5-5.2 [facility] Comment on above: Performed By: #### U RC #### [facility] [address] [place] [address] [employer] Attendant: Dale Walker [address] [address] [employer] Attendant: Jacob Ring MD Alkaline Phos 74 U/L Normal 35-104 [facility] Comment on above: Performed By: #### U RC #### [facility] [place] [address] [employer] Attendant: Dale Walker [facility] [address] [place] [address] [employer] Attendant: Jacob Ring MD ALT [Catalytic activity/Vol] 9 U/L Normal 5-33 [facility] Comment on above: Performed By: #### U RC #### [facility] [address] [place] [address] [employer] Attendant: Dale Walker [address] [address] [employer] Attendant: Jacob Ring MD Anion gap [Moles/Vol] 9 mmol/L Normal 9-17 [facility] Comment on above: Performed By: #### U RC #### [facility] [address] [place] [address] [employer] Attendant: Dale Walker [address] [address] [employer] Attendant: Jacob Ring MD AST [Catalytic activity/Vol] 10 U/L Normal <32 [facility] Comment on above: Performed By: #### U RC #### [facility] [address] [place] [address] [employer] Attendant: Dale Walker [address] [address] [employer] Attendant: Jacob Ring MD Bilirubin [Mass/Vol] 0.20 mg/dL Low 0.3-1.2 [facility] Comment on above: Performed By: #### U RC #### [facility] [address] [place] [address] [employer] Attendant: Dale Walker [address] [address] [employer] Attendant: Jacob Ring MD Calcium [Mass/Vol] 8.5 mg/dL Low 8.6-10.4 [facility] Comment on above: Performed By: #### U RC #### [facility] [address] [place] [address] [employer] Attendant: Dale Walker DO [address] [address] [employer] Attendant: Jacob Ring MD Chloride [Moles/Vol] 103 mmol/L Normal 98-107 [facility] Comment on above: Performed By: #### U RC #### [facility] [address] [place] [address] [employer] Attendant: Dale Walker [address] [address] [employer] Attendant: Jacob Ring MD CO2 [Moles/Vol] 25 mmol/L Normal 20-31 [facility] Comment on above: Performed By: #### U RC #### [facility] [address] [place] [address] [employer] Attendant: Dale Walker [address] [address] [employer] Attendant: Jacob Ring MD Creatinine [Mass/Vol] 0.71 mg/dL Normal 0.50-0.90 [facility] Comment on above: Performed By: #### U RC #### [facility] [address] [place] [address] [employer] Attendant: Dale Walker [address] [address] [employer] Attendant: Jacob Ring MD GFR, Amer >60 Normal >60 [facility] Comment on above: Performed By: #### U RC #### [facility] [address] [place] [address] [employer] Attendant: Fanelly, Dale, [address] [address] [employer] Attendant: Jacob Ring MD GFR,non Amer >60 Normal >60 [facility] Comment on above: Performed By: #### U RC #### [facility] [address] [place] [address] [employer] Attendant: Dale Walker [address] [address] [employer] Attendant: Jacob Ring MD Glucose [Mass/Vol] 68 mg/dL Low 70-99 [facility] Comment on above: Performed By: #### U RC #### [facility] [address] [place] [address] [employer] Attendant: Dale Walker [address] [address] [employer] Attendant: Jacob Ring MD Potassium [Moles/Vol] 3.8 mmol/L Normal 3.7-5.3 [facility] Comment on above: Performed By: #### U RC #### [facility] [address] [place] [address] [employer] Attendant: Dale Walker [address] [address] [employer] Attendant: Jacob Ring MD Protein [Mass/Vol] 7.2 g/dL Normal 6.4-8.3 [facility] Comment on above: Performed By: #### U RC #### [facility] [address] [place] [address] [employer] Attendant: Dale Walker [address] [address] [employer] Attendant: Jacob Ring MD Sodium [Moles/Vol] 137 mmol/L Normal 135-144 [facility] Comment on above: Performed By: #### U RC #### [facility] [address] [place] [address] [employer] Attendant: Dale Walker [address] [address] [employer] Attendant: Jacob Ring MD Urea nitrogen [Mass/Vol] 10 mg/dL Normal 6-20 [facility] Comment on above: Performed By: #### U RC #### [facility] [address] [place] [address] [employer] Attendant: Dale Walker [address] [address] [employer] Attendant: Jacob Ring MD Albumin/Glob Ratio NOT REPORTED Normal 1.0-2.5 [facility] Comment on above: Performed By: #### U RC #### [facility] [address] [place] [address] [employer] Attendant: Dale Walker [address] [address] [employer] Attendant: Jacob Ring MD BUN/CRE Ratio NOT REPORTED Normal 9-20 [facility] Comment on above: Performed By: #### U RC #### [facility] [address] [place] [address] [employer] Attendant: Dale Walker [address] [address] [employer] Attendant: Jacob Ring MD Staging: NOT REPORTED Normal [facility] Comment on above: Performed By: #### U RC #### [facility] [address] [place] [address] [employer] Attendant: Dale Walker [address] [address] [employer] Attendant: Jacob Ring MD [facility] Metabolic Pane lOrdered By: Brayan Waters on 03-06-2021 Albumin [Mass/Vol] 4 g/dL 3.5 - 5.2 g/dL [employer] Phone: Albumin/Globulin Ratio NOT REPORTED [employer] Phone: ALP (Bld) [Catalytic activity/Vol] 74 U/L 35 - 104 U/L [employer] Phone: ALT [Catalytic activity/Vol] 9 U/L 5 - 33 U/L [employer] Phone: Anion gap [Moles/Vol] 9 mmol/L 9 - 17 mmol/L [employer] Phone: AST [Catalytic activity/Vol] 10 U/L <32 [employer] Phone: Bilirubin [Mass/Vol] 0.20 mg/dL Low 0.3 - 1 .2 mg/dL [employer] Phone: Calcium [Mass/Vol] 8.5 mg/dL Low 8.6 - 10. 4 mg/dL [employer] Phone: Chloride [Moles/Vol] 103 mmol/L 98 - 10 7 mmol/L [employer] Phone: CO2 [Moles/Vol] 25 mmol/L 20 - 31 mmol/L [employer] Phone: Creatinine [Mass/Vol] 0.71 mg/dL 0.50 - 0.90 mg/dL [employer] Phone: Free PSA/Total PSA [Mass fraction] 7.2 g/dL 6.4 - 8.3 g/dL ACell Phone: GFR >60 >60 mL/min [employer] Phone: GFR Non- >60 >60 mL/min ACell Phone: GFR/1.73 sq M.predicted MDRD (S/P/Bld) [Vol rate/Area] ACell Phone: Comment on above: Average GFR for 30-3 9 years old: 107 mL/min/1.73sq m Chronic Kidney Disease: <60 mL/min/1.73sq m Kidney failure: <15 mL/min/1.73sq m eGFR calculated using average adult body mass. Additional eGFR calculator available at: http://www.[employer]/multiple_crcl_2012.htm GFR/1.73 sq M.predicted MDRD (S/P/Bld) [Vol rate/Area] NOT REPORTED [employer] Phone: Glucose [Mass/Vol] 68 mg/dL Low 70 - 99 mg/dL [employer] Phone: Interpretation and review of laboratory results Abnormal [employer] Phone: Potassium [Moles/Vol] 3.8 mmol/L 3.7 - 5.3 mmol/L [employer]Cell Phone: Sodium [Moles/Vol] 137 mmol/L 135 - 144 mmol/L [employer] Phone: Urea nitrogen (BldV) [Mass/Vol] 10 mg/dL 6 - 20 mg/dL [employer] Phone: Urea nitrogen/Creatinine (Bld) [Mass ratio] NOT REPORTED [employer] Phone: HCG, ,Urineon 03-06 Beta HCG ( test) Ql (U) Positive Abnormal NEG [facility] Comment on above: Result Comment: If H CG results do not concur with clinical observations, additional testing to confirm result is recommended. This test is not labeled for use as a tumor marker. Performed By: #### U MICAO, UHCG, UAX #### [facility] [address] [place] [address] [employer] Attendant: Dale Walker DO HCG, ,UrineOrdered By: Brayan Waters on 03-06-2021 Beta HCG ( test) Ql (U) Positive Abnormal NEGATIVE ACell Phone: Comment on above: If HCG results do no t concur with clinical observations, additional testing to confirm result is recommended. This test is not labeled for use as a tumor marker. Interpretation and review of laboratory results Abnormal ACell Phone: ACell Phone: HCG, Quanton 03-06-2021 HCG, Quant 78 IU/L High <5 [facility] Comment on above: Result Comment: Non-preg premeno <=5 Postmeno <=8 Male <=3 If HCG results do not concur with clinical observations, additional testing to confirm results is recommended. Elevated results not associated with may be found in patients with other diseases such as tumors of the germ cells (testis, ovaries, etc.), bladder, pancreas, stomach, lungs, and liver. Performed By: #### U RC #### [facility] [address] [place] [address] [employer] Attendant: [place] [address] [employer] Attendant: Jacob Ring MD HCG, Quantitative, Ordered By: Brayan Waters on 03-06-2021 hCG Quant 78 High <5 IU/L [employer]Cell Phone: Comment on above: Non-preg premeno <=5 Postmeno <=8 Male <=3 If HCG results do not concur with clinical observations, additional testing to confirm results is recommended. Elevated results not associated with may be found in patients with other diseases such as tumors of the germ cells (testis, ovaries, etc.), bladder, pancreas, stomach, lungs, and liver. Interpretation and review of laboratory results Abnormal ACell Phone: ACell Phone: Lipaseon 10-24-2021 Lipase [Catalytic activity/Vol] 25 U/L Normal 13-60 [facility] Comment on above: Performed By: #### U RC #### [facility] [address] [place] [address] [employer] Attendant: Dale Walker DO [employer] [address] [place] [address] [employer] Attendant: Jacob Ring MD LipaseOrdered By: Brayan mendoza on 03-06-2021 Lipase [Catalytic activity/Vol] 25 U/L 13 - 60 U/L [facility] [employer] Phone: Microscopic UrinalysisOrdere d By: Brayan Waters on 03-06-2021 - ACell Phone: Amorphous, UA 1+ Abnormal None ACell Phone: Bacteria, UA MODERATE Abnormal None ACell Phone: Casts UA NOT REPORTED /LPF [facility] [employer] [place] Work Phone: Crystals, UA NOT REPORTED None /HPF [facility] [employer] [place] Work Phone: Epithelial Cells UA 5 TO 10 /HPF [facility] [employer] [place] Work Phone: Interpretation and review of laboratory results Abnormal ACell Phone: Mucus, UA NOT REPORTED None [facility] [employer] Phone: Other Observations UA NOT REPORTED NOT REQ. [facility] [employer] Work Phone: RBC, UA 0 TO 2 /HPF [facility] [employer] [place] Work Phone: Renal Epithelial, UA NOT REPORTED 0 /HPF [facility] [employer] Work Phone: Trichomonas, UA NOT REPORTED None [employer] Work Phone: WBC, UA 10 TO 20 /HPF [facility] [employer] [place] Work Phone: Yeast, UA NOT REPORTED None [facility] Work Phone: [facility] Phone: No Panel InformationOrdered By: Brayan Waters on 03-06-2021 [facility] [employer] Phone: [id number] 03-06-2021 SARS-CoV-2 (COVID-19) RNA LEESA+probe Ql (Unsp spec) Not detected Normal NOTDET [facility] Comment on above: Result Comment: Rapid NAAT: The specimen is NEGATIVE for SARS-CoV-2, the novel coronavirus associated with COVID-19. The ID NOW COVID-19 assay is designed to detect the virus that causes COVID-19 in patients with signs and symptoms of infection who are suspected of COVID-19. An individual without symptoms of COVID-19 and who is not shedding SARS-CoV-2 virus would expect to have a negative (not detected) result in this assay. Negative results should be treated as presumptive and, if inconsistent with clinical signs and symptoms or necessary for patient management, should be tested with an alternative molecular assay. Negative results do not preclude SARS-CoV-2 infection and should not be used as the sole basis for patient management decisions. Fact sheet for Healthcare Providers: https://www.fda.gov/media/417591/download Fact sheet for Patients: https://www.fda.gov/media/466911/download Methodology: Isothermal Nucleic Acid Amplification Performed By: #### KELLI MCCARTNEY, UAX #### [facility] [address] [facility]. [place], [place] [id number] [employer] Attendant: Dale Walker DO UA w/Reflex Cultureon 2020 Bilirubin, SemiQt,Ur Negative Normal NEG [facility] Comment on above: Performed By: #### KELLI MCCARTNEY, UAX #### [facility] [address] [facility] [place], [place] [id number] [employer] Attendant: Dale Walker DO Blood, Urine Negative Normal NEG [facility] Comment on above: Performed By: #### U MICAO, UHCG, UAX #### [facility] [address] [facility] [place] [address] [employer] Attendant: Dale Walker DO Clarity (U) Cloudy Abnormal CLEAR [facility] Comment on above: Performed By: #### U MICAO, UHCG, UAX #### [facility] [address] [facility] [place] [address] [employer] Attendant: Dale Walker DO Color (U) Yellow Normal YEL [facility] Comment on above: Performed By: #### U MICAO, UHCG, UAX #### [facility] [address] [facility] [place] [address] [employer] Attendant: Dale Walker DO Glucose Ql (U) Negative Normal NEG [facility] Comment on above: Performed By: #### U MICAO, UHCG, UAX #### [facility] [address] [facility] [place] [address] [employer] Attendant: Dale Walker DO Ketones Ql (U) Negative Normal NEG [facility] Comment on above: Performed By: #### U MICAO, UHCG, UAX #### [facility] [facility] [place] [address] [employer] Attendant: Dale Walker DO Leukocyte esterase Test strip Ql (U) MOD Abnormal NEG [facility] Comment on above: Performed By: #### U MICAO, UHCG, UAX #### [facility] [address] [facility] [place] [address] [employer] Attendant: Dale Walker DO Nitrite,Ur Negative Normal NEG [facility] Comment on above: Performed By: #### U MICAO, UHCG, UAX #### [facility] [address] [facility] [place] [address] [employer] Attendant: Dale Walker DO PH,Ur 6.5 Normal 5.0-8.0 [facility] Comment on above: Performed By: #### U MAHAD DIALCG, UAX #### [facility] [address] [facility] [place] [address] [employer] Attendant: Dale Walker DO Protein Ql (U) Negative Normal NEG [facility] Comment on above: Performed By: #### U JAYRO, MAHADCG, UAX #### [facility] [address] [facility] [place] [address] [employer] Attendant: Dale Walker DO Spec. [place],Ur 1.020 Normal 1.000-1.030 [facility] Comment on above: Performed By: #### U GEOVANNA DIALG, UAX #### [facility] [address] [facility] [place] [address] [employer] Attendant: Dale Walker DO Urobilinogen,Ur Normal Normal NORM [facility] Comment on above: Performed By: #### U MAHAD DIALCG, UAX #### [facility] [address] [facility] [place] [address] [employer] Attendant: Dale Walker DO Comment NOT REPORTED Normal [facility] Comment on above: Performed By: #### U MAHAD DIALCG, UAX #### [facility] [address] [facility] [place] [address] [employer] Attendant: Dale Walker DO US OB TRANSVAGINALon 021 US OB TRANSVAGINAL EXAMINATION: FIRST TRIMESTER OBSTETRIC ULTRASOUND 03/06/2021 TECHNIQUE: Transvaginal first trimester obstetric pelvic ultrasound was performed with color Doppler flow evaluation. COMPARISON: None HISTORY: ORDERING SYSTEM PROVIDED HISTORY: r/o ectopic FINDINGS: Uterus: 12 x 7 cm Small hypoechoic area in the right uterus measuring 1.2 cm, possibly fibroid. Endometrium: 2.4 cm No visualized IUP Right ovary: 2.1 x 1.9 x 2.4 cm Left ovary: 1.9 x 1.7 x 2.5 cm Free fluid: None IMPRESSION: No visualized intra or extrauterine . Possible small fibroid the right uterus. Interpreted by: Marcell Powell MD Signed by: Marcell Powell MD 03/06/21 Final result Normal [facility] US OB TRANSVAGINALOrdered By : Brayan Waters on 03-06-2021 No visualized intra or extrauterine . Possible small fibroid the right uterus. ACell Phone: EXAMINATION: FIRST TRIMESTER OBSTETRIC ULTRASOUND 03/06/2021 TECHNIQUE: Transvaginal first trimester obstetric pelvic ultrasound was performed with color Doppler flow evaluation. COMPARISON: None HISTORY: ORDERING SYSTEM PROVIDED HISTORY: r/o ectopic FINDINGS: Uterus: 12 x 7 cm Small hypoechoic area in the right uterus measuring 1.2 cm, possibly fibroid. Endometrium: 2.4 cm No visualized IUP Right ovary: 2.1 x 1.9 x 2.4 cm Left ovary: 1.9 x 1.7 x 2.5 cm Free fluid: None ACell Phone: Renny, Mhpn Incoming R adiant Results From Tellwiki/Sequence - 03/06/2021 3:09 PM EDT EXAMINATION: FIRST TRIMESTER OBSTETRIC ULTRASOUND 03/06/2021 TECHNIQUE: Transvaginal first trimester obstetric pelvic ultrasound was performed with color Doppler flow evaluation. COMPARISON: None HISTORY: ORDERING SYSTEM PROVIDED HISTORY: r/o ectopic FINDINGS: Uterus: 12 x 7 cm Small hypoechoic area in the right uterus measuring 1.2 cm, possibly fibroid. Endometrium: 2.4 cm No visualized IUP Right ovary: 2.1 x 1.9 x 2.4 cm Left ovary: 1.9 x 1.7 x 2.5 cm Free fluid: None IMPRESSION: No visualized intra or extrauterine . Possible small fibroid the right uterus. ACell Phone: ACell Phone: Urinalysis Reflex to Culture Ordered By: Brayan Waters on 03-06-2021 Bilirubin Urine Negative NEGATIVE ACell Phone: Color, UA Yellow Yellow [employer] Work Phone: Glucose, Ur Negative NEGATIVE [employer] Work Phone: Interpretation and review of laboratory results Abnormal [employer] Work Phone: Ketones Ql (U) Negative NEGATIVE [employer] Work Phone: Leukocyte esterase Test strip Ql (U) MOD Abnormal NEGATIVE ACell Phone: Nitrite, Urine Negative NEGATIVE ACell Phone: pH, UA 6.5 [employer] Work Phone: Protein, UA Negative NEGATIVE ACell Phone: Specific [place], UA 1.020 [employer] Work Phone: Turbidity UA Cloudy Abnormal Clear [employer] Work Phone: Urinalysis Comments NOT REPORTED [employer] Work Phone: Urine Hgb Negative NEGATIVE ACell Phone: Urobilinogen, Urine Normal Normal ACell Phone: [employer] Work Phone: Urinalysis,Microon 1 ----- Normal [facility] Comment on above: Performed By: #### U MICAO, UHCG, UAX #### [facility] [address] [facility] [place] [address] [employer] Attendant: Dale Walker DO Amorphous sediment LM Ql (Urine sed) 1+ Abnormal NONE [facility] Comment on above: Performed By: #### U MICAO, UHCG, UAX #### [facility] [address] [facility] [place] [address] [employer] Attendant: Dale Walker DO Bacteria MODERATE Abnormal NONE [facility] Comment on above: Performed By: #### KELLI MCCARTNEY, UAX #### [facility] [address] [place] [address] [employer] Attendant: Dale Walker DO Epithelial cells LM Ql (Urine sed) 5 TO 10 Normal [facility] Comment on above: Performed By: #### KELLI MCCARTNEY, UAX #### [facility] [address] [place] [address] [employer] Attendant: Dale Walker DO Urine RBC's 0 TO 2 Normal [facility] Comment on above: Performed By: #### KELLI MCCARTNEY, UAX #### [facility] [address] [place] [address] [employer] Attendant: Dale Walker DO Urine WBC's 10 TO 20 Normal [facility] Comment on above: Performed By: #### KELLI MCCARTNEY, UAX #### [facility] [address] [place] [address]. [place] [address] [employer] Attendant: Dale Walker DO Casts NOT REPORTED Normal [facility] Comment on above: Performed By: #### KELLI MCCARTNEY, UAX #### [facility] [address] [place] [address] [employer] Attendant: Dale Walker DO Crystals LM Nom (Urine sed) NOT REPORTED Normal NONE [facility] Comment on above: Performed By: #### KELLI MCCARTNEY, UAX #### [facility] [address] [place] [address]. [place] [address] [employer] Attendant: Dale Walker DO Epithelial, Renal NOT REPORTED Normal 0 [facility] Comment on above: Performed By: #### U MICAO, UHCG, UAX #### [facility] [address] [facility] [place] [address] [employer] Attendant: Dale Walker DO Mucus Strands NOT REPORTED Normal NONE [facility] Comment on above: Performed By: #### U MICAO, UHCG, UAX #### [facility] [address] [place] [address] [employer] Attendant: Dale Walker DO Other Observations NOT REPORTED Normal NREQ [facility] Comment on above: Performed By: #### U MICAO, UHCG, UAX #### [facility] [address] [facility] [place] [address] [employer] Attendant: Dale Walker DO Trichomonas NOT REPORTED Normal NONE [facility] Comment on above: Performed By: #### U MICAO, UHCG, UAX #### [facility] [address] [facility] [place] [address] [employer] Attendant: Dale Walker DO Yeast NOT REPORTED Normal NONE [facility] Comment on above: Performed By: #### U MICAO, UHCG, UAX #### [facility] [address] [facility] [place] [address] [employer] Attendant: Dale Walker DO *SARS-CoV-2 COVID-19on 01-12 SARS-CoV-2 (COVID-19) RNA LEESA+probe Ql (Unsp spec) Not detected Normal Not Detected [facility] Comment on above: Order Comment: The A ptima SARS-CoV-2 assay is a nucleic acid amplification test intended for the qualitative detection of RNA from SARS-CoV-2 isolated and purified from nasopharyngeal (DONATION WORKER),oropharyngeal (OP), nasal swab, sputum, and bronchoalveolar lavage (BAL) specimens from patients with signs and symptoms of infection who are suspected of COVID-19. Results are for the identification of SARS-CoV-2 RNA. The SARS-CoV-2 RNA is generally detectable during the acute phase of infection. The Aptima SARS-CoV-2 Assay on the [employer] system is intended for use by laboratory personnel specifically instructed and trained in the operation of the [employer] system. The Aptima SARS-CoV-2 assay is only for use under the Food and Drug Administration Emergency Use Authorization. Testing is limited to laboratories certified under the Clinical Laboratory Improvement Amendments of 1988 (CLIA), 42 U.S.C. ???263a, to perform high complexity tests. Not Detected: Not detected does not preclude SARS-CoV-2 infection and should not be used as the sole basis for patient management decisions. Not detected results must be combined with clinical observations, patient history, and epidemiological information. Performed By: #### 3 [id number] #### [facility] [address] POC SARS COV2 ANTIGEN NEGATI VEon 01-12-2021 POC SARS COV2 ANTIGEN NEG Negative Normal NEGATIVE [facility] Comment on above: Result Comment: Nega tive results from patients with symptom onset beyond seven days, should be treated presumptive and confirmation with a molecular assay, if necessary, for patient management, may be performed. Negative results do not rule out SARS-CoV-2 infection and should not be used as the sole basis for treatment or patient management decisions, including infection control decisions. Negative results should be considered in the context of a patient?s recent exposures, history and the presence of clinical signs and symptoms consistent with COVID-19. The BinaxNOW COVID-19 Ag Card is a lateral flow immunoassay intended for the qualitative detection of nucleocapsid protein antigen from SARS-CoV-2 in direct nasal swabs from individuals within the first seven days of symptom onset. Testing is limited to laboratories certified under the Clinical Laboratory Improvement Amendments of 1988 (CLIA), 42 U.S.C. ???263a, that meet the requirements to perform moderate, high or waived complexity tests. This test is authorized for use at the Point of Care (POC), i.e., in patient care settings operating under a CLIA Certificate of Waiver, Certificate of Compliance, or Certificate of Accreditation. Performed By: #### 3 1977 #### [address] [place] [address], [facility] SHOULDER RIGHTon 01-12-2021 SHOULDER RIGHT [facility] Department of Radiology [address] [place] [id number] Patient Name: JUANIS ONEILL : 1980 Sex: F Age: Race: White Pt. Location: [facility] Patient Status: E Ordered Date: 01/12/2021 4:05:00 PM Completed Date: 01/12/2021 04:29 PM Requesting Provider: ODILON LEI Attending Provider: LALIT SUN Report Copy To: Signs & Symptoms: Pain History: Comments: evaluate for FX Exam: SHOULDER RIGHT SHOULDER RIGHT 01/12/2021 4:29 PM CLINICAL INDICATIONS: Pain TECHNOLOGIST COMMENTS: Patient states right shoulder pain for a few months with no known injury. QUESTION FOR THE RADIOLOGIST: evaluate for FX PROTOCOL: AP,Grashey and Axillary views were obtained. COMPARISON: None Impression: No fracture or destructive lesion and no arthritic findings. Consider MRI if you suspect occult process. Electronically signed: Abram Ramírez. Transcribed by: [email or web address], User Resident: Electronically Signed by: ABRAM RAMÍREZ @ 01/12/2021 04:51 PM Normal [facility] Comment on above: Order Comment: evalu ate for FX FOOT LEFT 3 VWSon 11-10-2020 FOOT LEFT 3 S [facility] Department of Radiology [address] [place] [id number] Patient Name: JUANIS ONEILL : 1980 Sex: F Age: Race: White Pt. Location: [facility] Patient Status: E Ordered Date: 11/10/2020 8:10:00 PM Completed Date: 11/10/2020 08:16 PM Requesting Provider: KIRT YANG Attending Provider: KYRIE SINGH Report Copy To: Signs & Symptoms: Pain ( specify Location) History: Comments: evaluate for FX Exam: FOOT LEFT 3 [facility] FOOT LEFT 3 S 11/10/2020 8:16 PM CLINICAL INDICATIONS: Pain ( specify Location) TECHNOLOGIST COMMENTS: complains of left foot pain x 3 weeks. no injury QUESTION FOR THE RADIOLOGIST: evaluate for FX PROTOCOL: AP,Lateral and Oblique views were obtained. COMPARISON: None FINDINGS: There is no malalignment. Joint spaces are preserved. No fracture nor destructive bone lesion is identified. No periarticular erosive changes are seen. There is minimal calcaneal spurring at the origin of the plantar fascia. IMPRESSION: 1. No acute finding left foot. 2. Minimal calcaneal spurring. Electronically signed: Patricia Zamarripa. Transcribed by: [email or web address], User Resident: Electronically Signed by: PATRICIA ZAMARRIPA @ 11/10/2020 08:21 PM Normal [facility] Comment on above: Order Comment: evalu ate for FX HCG, Quantitative, on 07-05-2020 hCG Quant 55030 High <5 IU/L ACell Phone: Comment on above: Non-preg premeno <=5 Postmeno <=8 Male <=3 If HCG results do not concur with clinical observations, additional testing to confirm results is recommended. Elevated results not associated with may be found in patients with other diseases such as tumors of the germ cells (testis, ovaries, etc.), bladder, pancreas, stomach, lungs, and liver. Interpretation and review of laboratory results Abnormal ACell Phone: BETA SUBUNIT HCGon 1 B HCG Normal 0-5 [facility] Comment on above: Result Comment: 2801 9 [address].0 FEMALE REFERENCE RANGES: NON 0-5 4 WKS SINCE PERIOD 3-426 5 WKS SINCE PERIOD 19-7340 6 WKS SINCE PERIOD 1080-56,500 10 WKS SINCE PERIOD 54,100-288,000 18 WKS SINCE PERIOD 8,910-66,000 31 WKS SINCE PERIOD 5,310-27,400 MALE REFERENCE RANGE: 0-2 Performed By: #### 4 [id number] #### [address] HCG, Quantitative, on 06-21-2020 hCG Quant 98564 High <5 IU/L [facility] Comment on above: Non-preg premeno <=5 Postmeno <=8 Male <=3 If HCG results do not concur with clinical observations, additional testing to confirm results is recommended. Elevated results not associated with may be found in patients with other diseases such as tumors of the germ cells (testis, ovaries, etc.), bladder, pancreas, stomach, lungs, and liver. Interpretation and review of laboratory results Abnormal [facility] ATIONon 06-21-2020 US OB 0-13 WEEKS SINGLE GESTATION [facility] Department of Radiology [address] [place] [phone] Patient Name: JUANIS ONEILL : 1980 Sex: F Age: Race: White Pt. Location: [facility] Patient Status: E Ordered Date: 06/21/2020 4:55:00 PM Completed Date: 06/21/2020 07:23 PM Requesting Provider: DOTTIE BALDWIN Attending Provider: LALIT SUN Report Copy To: Signs & Symptoms: Pelvic Pain History: See Comments Comments: Ectopic Exam: US OB 0-13 WEEKS SINGLE GESTATION US OB 0-13 WEEKS SINGLE GESTATION 06/21/2020 7:23 PM CLINICAL INDICATIONS: Pelvic Pain TECHNOLOGIST COMMENTS: QUESTION FOR THE RADIOLOGIST: Ectopic COMPARISON: None. TECHNIQUE: Limited pelvic ultrasound using transvesical sonography. FINDINGS: Beta-hC,000 The uterus measures 13 x 8.7 x 8.1 cm. An early intrauterine sac is identified. This has a mean diameter measuring 1.3 x 0.9 x 0.7 cm. The sac demonstrates no evidence of a pole and no yolk sac. No cardiac activity. A decidual reaction is noted. A normal amount of amniotic fluid is present. There is no evidence for placenta previa or subchorionic hemorrhage. Pelvic survey reveals no gross abnormalities. No free fluid. No adnexal masses. IMPRESSION: There is a cystic area identified within the endometrial cavity which does not contain any evidence of a pole or yolk sac. A decidual reaction is noted. The findings could be related to the presence of an anembryonic (blighted ovum). Pseudogestational sac is not completely excluded. Other entities such as gestational trophoblastic disease thought to be less likely. Recommend short-term follow-up study. A follow-up study should be performed within 10 days if there are no progressive symptoms of early if there are progressive symptoms. Electronically signed: Odilon Maradiaga. Transcribed by: [email or web address], User Resident: Electronically Signed by: ODILON MARADIAGA @ 06/21/2020 07:36 PM Normal [facility] Comment on above: Order Comment: Ectop ic US TRANSVAGINAL OBon 021 US TRANSVAGINAL OB [facility] Department of Radiology [address] [place] [phone] Patient Name: JUANIS ONEILL : 1980 Sex: F Age: Race: White Pt. Location: [facility] Patient Status: D Ordered Date: 06/21/2020 7:25:00 PM Completed Date: 06/21/2020 07:23 PM Requesting Provider: DOTTIE BALDWIN Attending Provider: LALIT SUN Report Copy To: Signs & Symptoms: Pelvic Pain History: See Comments Comments: Ectopic Exam: US TRANSVAGINAL OB US TRANSVAGINAL OB 06/21/2020 7:23 PM CLINICAL INDICATIONS: Pelvic Pain TECHNOLOGIST COMMENTS: QUESTION FOR THE RADIOLOGIST: Ectopic TECHNIQUE: Transabdominal and transvaginal images of the pelvis were performed. Transvaginal images were performed to better assess anatomy and for possible pathology. Duplex Doppler imaging utilizing both color and spectral Doppler was performed to evaluate ovarian blood flow. COMPARISON: None. FINDINGS: IMPRESSION: Included with OB ultrasound. Electronically signed: Patricia Jeong. Transcribed by: [email or web address], User Resident: Electronically Signed by: PATRICIA JEONG @ 06/22/2020 06:42 AM Normal [facility] Comment on above: Order Comment: evalu ate for FX HCG, Quantitative, on 06-14-2020 hCG Quant 5259 High <5 IU/L [place], [place] Comment on above: Non-preg premeno <=5 Postmeno <=8 Male <=3 If HCG results do not concur with clinical observations, additional testing to confirm results is recommended. Elevated results not associated with may be found in patients with other diseases such as tumors of the germ cells (testis, ovaries, etc.), bladder, pancreas, stomach, lungs, and liver. Interpretation and review of laboratory results Abnormal [place], [place] CBC Auto Differentialon 02-12 Basophils (Bld) [#/Vol] 0.03 10*3/uL [place], [place] Basophils/100 WBC (Bld) 1 % 0 - 2 % [place] Differential Type NOT REPORTED [place] Eosinophils (Bld) [#/Vol] 0.11 10*3/uL [place] Eosinophils/100 WBC (Bld) 2 % 1 - 4 % [place] Erythrocyte distribution width (RBC) [Ratio] 15.0 % High 11.8 - 14.4 % [place] Hematocrit (Bld) [Volume fraction] 36.2 % Low 36.3 - 47.1 % [place] Hemoglobin (Bld) [Mass/Vol] 10.6 g/dL Low 11.9 - 15.1 g/dL [place] Immature granulocytes (Bld) [#/Vol] 10*3/uL [place] Immature granulocytes (Bld) [#/Vol] 0 % 0 [place] Interpretation and review of laboratory results Abnormal [place] Lymphocytes (Bld) [#/Vol] 1.74 10*3/uL [place] Lymphocytes/100 WBC (Bld) 30 % 24 - 43 % [place] MCH (RBC) [Entitic mass] 24.7 pg Low 25.2 - 33.5 pg [place] MCHC (RBC) [Mass/Vol] 29.3 g/dL 28.4 - 34.8 g/dL [place] MCV (RBC) [Entitic vol] 84.4 fL 82.6 - 102.9 fL [place] Monocytes (Bld) [#/Vol] 0.34 10*3/uL [place] Monocytes/100 WBC (Bld) 6 % 3 - 12 % [place] Platelet mean volume (Bld) [Entitic vol] 11.2 fL 8.1 - 13.5 fL [place] Platelets (Bld) [#/Vol] 244 10*3/uL [place] Platelets (Bld) [#/Vol] NOT REPORTED [place] RBC (Bld) [#/Vol] 4.29 10*6/uL 3.95 - 5.1 1 m/uL [place] RBC morphology finding Nom (Bld) ANISOCYTOSIS PRESENT [place] Segmented neutrophils/100 WBC (Bld) 61 % 36 - 65 % [place] Segs Absolute 3.57 [place] WBC (Bld) [#/Vol] 0.0 10*3/uL 0.0 per 10 0 WBC [place] WBC (Bld) [#/Vol] 5.8 10*3/uL [place] WBC Morphology NOT REPORTED [place] HCG, Quantitative, on 03-11-2020 hCG Quant 171 High <5 IU/L [place] Comment on above: Non-preg premeno <=5 Postmeno <=8 Male <=3 If HCG results do not concur with clinical observations, additional testing to confirm results is recommended. Elevated results not associated with may be found in patients with other diseases such as tumors of the germ cells (testis, ovaries, etc.), bladder, pancreas, stomach, lungs, and liver. Interpretation and review of laboratory results Abnormal [place] HCG, Quantitative, on 03-05-2020 hCG Quant 1276 High <5 IU/L [place] Comment on above: Non-preg premeno <=5 Postmeno <=8 Male <=3 If HCG results do not concur with clinical observations, additional testing to confirm results is recommended. Elevated results not associated with may be found in patients with other diseases such as tumors of the germ cells (testis, ovaries, etc.), bladder, pancreas, stomach, lungs, and liver. Interpretation and review of laboratory results Abnormal [place] HCG, Quantitative, on 03-03-2020 hCG Quant 4338 High <5 IU/L [place] Comment on above: Non-preg premeno <=5 Postmeno <=8 Male <=3 If HCG results do not concur with clinical observations, additional testing to confirm results is recommended. Elevated results not associated with may be found in patients with other diseases such as tumors of the germ cells (testis, ovaries, etc.), bladder, pancreas, stomach, lungs, and liver. Interpretation and review of laboratory results Abnormal [place] *URINE CULTUREon 03-01-2020 *URINE CULTURE Clinical Report: (D) Specimen/Source: URINE/CLEAN VOID URINE Collected: 03/01/2020 10:21 Status: Final Last Updated: 03/03/2020 09:01 ISO (Final) Escherichia coli >100,000 Cfu/Ml ISOLATE: Escherichia coli KILEY (mcg/ml) AMP./SULBAC (AMS) >16/8 Resistant AMPICILLIN (AM) >16 Resistant AZTREONAM (AZM) <=1 Susceptible CEFAZOLIN (CZ) 4 Susceptible CEFTRIAXONE (SENIOR UI DEVELOPER) <=0.5 Susceptible CIPROFLOXACIN (CIP) <=0.5 Susceptible ESBL (-/+) (ESBL) Negative GENTAMICIN (GM) 2 Susceptible NITROFURANTOIN (FT) <=16 Susceptible PIP/TAZO (TZP) <=2/4 Susceptible TOBRAMYCIN (TOB) 1 Susceptible TRIMETH/SULFA (SXT) <=0.5/9.5 Susceptible Normal [facility] Comment on above: Performed By: #### 3 0339 ####[facility] BETA SUBUNIT HCG[place] 0 [place] [address] m[IU]/mL High 0-5 [facility] Comment on above: Order Comment: evalu ate for FX Result Comment: FEMA LE REFERENCE RANGES: NON 0-5 4 WKS SINCE PERIOD 3-426 5 WKS SINCE PERIOD 19-7340 6 WKS SINCE PERIOD 1080-56,500 10 WKS SINCE PERIOD 54,100-288,000 18 WKS SINCE PERIOD 8,910-66,000 31 WKS SINCE PERIOD 5,310-27,400 MALE REFERENCE RANGE: 0-2 Performed By: #### 4 7023 ####[facility] CBC W/DIFFon 03-01-2020 ABS IMM GRANS 0.0 10*3/uL Normal 0.0-0.2 [facility] Comment on above: Performed By: #### 5 0103 ####[facility] ABS NEUTROPHILS 5.5 10*3/uL Normal 1.6-7.6 [facility] Comment on above: Performed By: #### 5 0103 ####[facility] Basophils (Bld) [#/Vol] 0.0 10*3/uL Normal 0.0-0.2 [facility] Comment on above: Performed By: #### 5 0103 ####[facility] Basophils/100 WBC (Bld) 0.5 % Normal 0.0-1.0 [facility] Comment on above: Performed By: #### 5 0103 ####[facility] Eosinophils (Bld) [#/Vol] 0.2 10*3/uL Normal 0.0-0.5 [facility] Comment on above: Performed By: #### 102 ####[facility] Eosinophils/100 WBC (Bld) 1.9 % Normal 0.0-6.0 [facility] Comment on above: Performed By: #### 102 ####[place] [id number] [address] Erythrocyte distribution width (RBC) [Ratio] 14.5 % Normal 11.5-15.0 [facility] Comment on above: Performed By: #### 102 ####[facility] [place] [address] Hematocrit (Bld) [Volume fraction] 36.4 % Normal 36.0-45.0 [facility] Comment on above: Performed By: #### 102 ####[place] [address] Hemoglobin (Bld) [Mass/Vol] 10.9 g/dL Low 12.0-15.0 [facility] Comment on above: Performed By: #### 3 ####[facility] IMMATURE GRANS 0.2 % Normal 0.0-1.0 [facility] Comment on above: Performed By: #### 102 ####[place] [address] Lymphocytes (Bld) [#/Vol] 2.2 10*3/uL Normal 1.2-4.0 [facility] Comment on above: Performed By: #### 5 0103 ####[facility] [place] [address], [facility] Lymphocytes/100 WBC (Bld) 25.7 % Normal 20.0-45.0 [facility] Comment on above: Performed By: #### 5 3 ####[facility] [facility] [place] [address], [facility] MCH (RBC) [Entitic mass] 24.7 pg Low 27.0-33.0 [facility] Comment on above: Performed By: #### 102 ####[facility] MCHC (RBC) [Mass/Vol] 29.9 g/dL Low 32.0-35.0 [facility] Comment on above: Performed By: #### 102 ####[facility] MCV (RBC) [Entitic vol] 82.5 fL Normal 82.0-98.0 [facility] Comment on above: Performed By: #### 5 3 ####[facility] Monocytes (Bld) [#/Vol] 0.6 10*3/uL Normal 0.1-1.0 [facility] Comment on above: Performed By: #### 5 3 ####[facility] MONOS 6.5 % Normal 5.0-12.0 [facility] Comment on above: Performed By: #### 5 3 ####[facility] [place] [address], [facility] Neutrophils/100 WBC (Bld) 65.2 % Normal 40.0-72.0 [facility] Comment on above: Performed By: #### 5 0103 ####[facility]3000 [facility].[address] Nucleated RBC/100 WBC (Bld) [Ratio] 0 % Normal 0-0 [facility] Comment on above: Performed By: #### 5 0103 ####[facility] PLAT CNT 211 10*3/uL Normal 150-400 [facility] Comment on above: Performed By: #### 5 0103 ####[facility] RBC (Bld) [#/Vol] 4.41 10*6/uL Normal 3.80-5.00 [facility] Comment on above: Performed By: #### 5 0103 ####[facility] [facility].[address] WBC (Bld) [#/Vol] 8.44 10*3/uL Normal 4.00-10.60 [facility] Comment on above: Performed By: #### 5 0103 ####[facility] [facility].[address] RH IMMUNE GLOBULINon 020 DERIVATIVE CODE 1 RHG Normal [facility] Comment on above: Performed By: #### 6 0781 #### [facility] [address] [facility]. [address] PRODUCT STATUS 1 PT Normal [facility] Comment on above: Result Comment: Resu lt changed by IF on 03/01/2020 11:50. The previous value was XM. Result changed by IF on 03/02/2020 02:30. The previous value was IS. Performed By: #### 6 0781 #### [facility] [address] [id number] Normal [facility] Comment on above: Performed By: #### 6 0781 #### [facility] [address] [place] [address], [facility] TYPE AND SCREENon 03-01-2020 ABO INTERPRETATION O Normal [facility] Comment on above: Performed By: #### 6 2586 ####[facility] [place] [address], [place] RH INTERPRETATION Negative Normal [facility] Comment on above: Performed By: #### 6 2586 ####[facility] [place] [address], [facility] URINALYSIS REFLEXon 03-01-20 20 Appearance (U) CLOUDY Abnormal CLEAR [facility] Comment on above: Order Comment: Crite lior for reflexing a culture was met. Urine Culture and sensitivity will be performed. Performed By: #### 3 0965 #### [facility] [address] [place] [address], [place] Bilirubin Ql (U) Negative Normal NEGATIVE [facility] Comment on above: Order Comment: Crite lior for reflexing a culture was met. Urine Culture and sensitivity will be performed. Performed By: #### 3 0965 #### [facility] [address] [place] [address], [place] Color (U) CONNIE Abnormal YELLOW [facility] Comment on above: Order Comment: Crite lior for reflexing a culture was met. Urine Culture and sensitivity will be performed. Performed By: #### 3 0965 #### [facility] [address] [place] [address], [place] EPIS OCC Normal FEW,OCC,NON E SEEN [facility] Comment on above: Order Comment: Crite lior for reflexing a culture was met. Urine Culture and sensitivity will be performed. Performed By: #### 3 0965 #### [facility] [address] [place] [address], [place] Glucose Ql (U) Negative Normal NEGATIVE [facility] Comment on above: Order Comment: Crite lior for reflexing a culture was met. Urine Culture and sensitivity will be performed. Performed By: #### 3 0965 #### [facility] [address] [place] [address], [facility] Hemoglobin Ql (U) LARGE Abnormal NEGATIVE [facility] Comment on above: Order Comment: Crite lior for reflexing a culture was met. Urine Culture and sensitivity will be performed. Performed By: #### 3 0965 #### [facility] [address] [facility] [place] [address], [facility] KETONE Negative Normal NEGATIVE [facility] Comment on above: Order Comment: Crite lior for reflexing a culture was met. Urine Culture and sensitivity will be performed. Performed By: #### 3 0965 #### [facility] [address] [place] [address], [facility] LEUK CARLOS TRACE Abnormal NEGATIVE [facility] Comment on above: Order Comment: Crite lior for reflexing a culture was met. Urine Culture and sensitivity will be performed. Performed By: #### 3 0965 #### [facility] [address] [facility] [place] [address], [facility] MUCUS THREADS FEW Abnormal NONE SEEN [facility] Comment on above: Order Comment: Crite lior for reflexing a culture was met. Urine Culture and sensitivity will be performed. Performed By: #### 3 0965 #### [facility] [address] [facility] [place] [address], [facility] Nitrite Ql (U) Positive Abnormal NEGATIVE [facility] Comment on above: Order Comment: Crite lior for reflexing a culture was met. Urine Culture and sensitivity will be performed. Performed By: #### 3 0965 #### [facility] [address] [facility] [place] [address], [facility] pH (U) 6.0 [pH] Normal 5.0-8.0 [facility] Comment on above: Order Comment: Crite lior for reflexing a culture was met. Urine Culture and sensitivity will be performed. Performed By: #### 3 0965 #### [facility] [address] [facility] [place] [address], [facility] Protein Ql (U) 100 mg/dL Abnormal NEGATIVE [facility] Comment on above: Order Comment: Crite lior for reflexing a culture was met. Urine Culture and sensitivity will be performed. Performed By: #### 3 0965 #### [facility] [address] [facility] [place] [address], [facility] RBC (U) [#/Vol] /uL Abnormal NONE SEEN [facility] Comment on above: Order Comment: Crite lior for reflexing a culture was met. Urine Culture and sensitivity will be performed. Performed By: #### 3 0965 #### [facility] [address] [facility]. [address] SPEC GRAV 1.016 Normal 1.015-1.020 [facility] Comment on above: Order Comment: Crite lior for reflexing a culture was met. Urine Culture and sensitivity will be performed. Performed By: #### 3 0965 #### [facility] [address] [facility] [place] [address], [facility] WBC UA 21-50 Abnormal NONE SEEN [facility] Comment on above: Order Comment: Crite lior for reflexing a culture was met. Urine Culture and sensitivity will be performed. Performed By: #### 3 0965 #### [facility] [address] [facility]. [address] US OB 0-13 WEEKS SINGLE GEST ATIONon 03-01-2020 US OB 0-13 WEEKS SINGLE GESTATION [facility] Department of Radiology [address] [place] [address] Patient Name: JUANIS ONEILL : 1980 Sex: F Age: Race: White Pt. Location: [facility] Patient Status: D Ordered Date: 03/01/2020 11:05:00 AM Completed Date: 03/01/2020 11:02 AM Requesting Provider: DOTTIE BALDWIN Attending Provider: VENKAT AUGUSTE Report Copy To: Signs & Symptoms: Bleeding/Spotting History: See Comments Comments: Ectopic Exam: US OB 0-13 WEEKS SINGLE GESTATION Addendum Begins Addendum: The amniotic fluid and placenta cannot be adequately evaluated due to gestational age. Electronically signed: Venkat Pressley. Addendum Ends Clinical history: patient with spotting/bleeding. Pelvic ultrasound with transvaginal imagin03/01/2020 FINDINGS: Transvaginal images were done to optimally assess the uterine contents. A single intrauterine gestational sac is demonstrated. A pole and yolk sac are identified. The crown-rump length is 8 mm which corresponds with a gestational age of 6 weeks 6 days. Cardiac activity is documented with a heart rate of 114 bpm. Uterine echotexture is within normal limits. Uterine measurements are: 11.7 x 7.7 x 7.3 cm Both ovaries are visualized on transabdominal imaging but assessment is inhibited by body habitus. The overall ovarian measurements are: Right ovary: 3.0 x 2.7 x 2.7 cm Left ovary: 3.1 x 3.0 x 2.4 cm. IMPRESSION: Single live intrauterine of estimated gestational age 6 weeks 6 days. Electronically signed: Venkat Pressley. Transcribed by: [email or web address], User Resident: Electronically Signed by: VENKAT PRESSLEY @ 03/18/2020 03:56 AM Normal [facility] Comment on above: Order Comment: evalu ate for FX US TRANSVAGINAL OBon 020 US TRANSVAGINAL OB [facility] Department of Radiology [address] [place] [address] Patient Name: JUANIS ONEILL : 1980 Sex: F Age: Race: White Pt. Location: [facility] Patient Status: D Ordered Date: 03/01/2020 9:40:00 AM Completed Date: 03/01/2020 11:02 AM Requesting Provider: DOTTIE BALDWIN Attending Provider: VENKAT AUGUSTE Report Copy To: Signs & Symptoms: Bleeding/Spotting History: See Comments Comments: Ectopic Exam: US TRANSVAGINAL OB Addendum Begins Addendum: The amniotic fluid and placenta cannot be adequately evaluated due to gestational age. Electronically signed: Venkat Pressley. Addendum Ends Clinical history: patient with spotting/bleeding. Pelvic ultrasound with transvaginal imagin03/01/2020 FINDINGS: Transvaginal images were done to optimally assess the uterine contents. A single intrauterine gestational sac is demonstrated. A pole and yolk sac are identified. The crown-rump length is 8 mm which corresponds with a gestational age of 6 weeks 6 days. Cardiac activity is documented with a heart rate of 114 bpm. Uterine echotexture is within normal limits. Uterine measurements are: 11.7 x 7.7 x 7.3 cm Both ovaries are visualized on transabdominal imaging but assessment is inhibited by body habitus. The overall ovarian measurements are: Right ovary: 3.0 x 2.7 x 2.7 cm Left ovary: 3.1 x 3.0 x 2.4 cm. IMPRESSION: Single live intrauterine of estimated gestational age 6 weeks 6 days. Electronically signed: Venkat Pressley. Transcribed by: [email or web address], User Resident: Electronically Signed by: VENKAT PRESSLEY @ 03/18/2020 03:56 AM Normal [facility] Comment on above: Order Comment: Ectop ic POC URINE PREGNANCYon 2019 Beta HCG ( test) Ql (U) Positive Abnormal NEGATIVE [facility] Comment on above: Result Comment: Perf ormed in Emergency Department. Performed By: #### 8 [id number] #### [facility] [address] [facility]. [address] Surgical PathologyOrdered By : Eulalio Mendoza on 05-06-2019 Surgical Pathology Report [id number] [facility] [address] [facility]. [place] [address] SURGICAL PATHOLOGY REPORT Patient Name: JUANIS ONEILL MR#: [id number] Specimen #[id number] Final Diagnosis THYROID, RIGHT LOBE, FNA: SATISFACTORY FOR EVALUATION. BENIGN CONSISTENT WITH A BENIGN FOLLICULAR NODULE (INCLUDES ADENOMATOID NODE NODULE, COLLOID NODULE, ETC.) Dale Walker D.O. Electronically Signed Out 05/05/2019 Frozen Section Diagnosis Rapid Cytologic Interpretation: C : Specimen satisfactory for evaluation. Findings conveyed to Dr. Mendoza on 05/05/2019. Clinical Information ultiple thyroid nodules; thyroid bx Source: A: Rt thyroid nodule aspirate, smears, Diff Quik B: Rt thyroid nodule aspirate, sediment (needle rinse) Gross Description Specimen A : The specimen consists of the aspirate of the right thyroid. Twelve Papanicolaou stained smears and four Diff-Quik are prepared for microscopic examination, and a portion is submitted for potential ancillary studies. Specimen B : The specimen consists of the sediment (needle rinse) from the right thyroid. The entire specimen is submitted for cell block preparation. Microscopic Description Microscopic examination of seventeen Papanicolaou and Diff Quik stained slides along with cell block sections confirm the diagnosis. [facility] Work Phone: IR BIOPSY THYROID PERC CORE NEEDLEOrdered By: Jose J Aguilera on 05-05-2019 Successful ultrasound-guided fine-needle aspiration biopsy of a thyroid nodule. [employer] Phone: CBCOrdered By: Jose J Aguilera on 04-28-2019 Erythrocyte distribution width (RBC) [Ratio] 17.1 % High 11.5 - 14.9 % [employer] Phone: Hematocrit (Bld) [Volume fraction] 34.4 % Low 36 - 46 % [employer] Phone: Hemoglobin (Bld) [Mass/Vol] 10.9 g/dL Low 12 - 16 g/dL [employer] Phone: Interpretation and review of laboratory results Abnormal [employer] Phone: MCH (RBC) [Entitic mass] 24.6 pg Low 26 - 34 pg [employer] Phone: MCHC (RBC) [Mass/Vol] 31.7 g/dL 31 - 3 7 g/dL [employer] Phone: MCV (RBC) [Entitic vol] 77.6 fL Low 80 - 100 fL [employer] Phone: NRBC Automated NOT REPORTED per 100 WBC [employer] Phone: Platelet mean volume (Bld) [Entitic vol] 9.9 fL 6 - 12 fL [employer] Phone: Platelets (Bld) [#/Vol] 276 10*3/uL [employer] Phone: RBC (Bld) [#/Vol] 4.43 10*6/uL 4 - 5.2 m/uL [employer] Phone: WBC (Bld) [#/Vol] 7.9 10*3/uL [employer] Phone: Comprehensive Metabolic Pane lOrdered By: Jose J Aguilera on 04-28-2019 Albumin [Mass/Vol] 4 g/dL 3.5 - 5.2 g/dL [employer] [employer]: Albumin/Globulin Ratio NOT REPORTED [employer] Phone: ALP [Catalytic activity/Vol] 54 U/L 35 - 104 U/L [employer] Phone: ALT [Catalytic activity/Vol] 7 U/L 5 - 33 U/L [employer] Phone: Anion gap [Moles/Vol] 12 mmol/L 9 - 17 mmol/L [employer] Phone: AST [Catalytic activity/Vol] 10 U/L <32 [employer] Phone: Bilirubin [Mass/Vol] 0.34 mg/dL 0.3 - 1 .2 mg/dL [employer] Phone: Bun/Cre Ratio NOT REPORTED [employer] Phone: Calcium [Mass/Vol] 8.9 mg/dL 8.6 - 10. 4 mg/dL [employer] Phone: Chloride [Moles/Vol] 105 mmol/L 98 - 10 7 mmol/L [employer] Phone: CO2 [Moles/Vol] 23 mmol/L 20 - 31 mmol/L [employer] Phone: Creatinine [Mass/Vol] 0.67 mg/dL 0.5 - 0.9 mg/dL [employer] Phone: GFR >60 >60 mL/min [place] Phone: GFR Comment [employer] Phone: Comment on above: Average GFR for 30-3 9 years old: 107 mL/min/1.73sq m Chronic Kidney Disease: <60 mL/min/1.73sq m Kidney failure: <15 mL/min/1.73sq m eGFR calculated using average adult body mass. Additional eGFR calculator available at: http://www.[employer]/multiple_crcl_2012.htm GFR Non- >60 >60 mL/min [employer] Phone: GFR Staging NOT REPORTED [employer] [employer]: Glucose [Mass/Vol] 87 mg/dL 70 - 99 mg/dL [employer] Phone: Potassium [Moles/Vol] 4.0 mmol/L 3.7 - 5.3 mmol/L [employer] Phone: Protein [Mass/Vol] 7.5 g/dL 6.4 - 8.3 g/dL [employer] Phone: Sodium [Moles/Vol] 140 mmol/L 135 - 144 mmol/L [employer] Phone: Urea nitrogen [Mass/Vol] 10 mg/dL 6 - 20 mg/dL [employer] Phone: Lipid PanelOrdered By: Jenaro Aguilera on 04-28-2019 Cholesterol [Mass/Vol] 129 mg/dL <200 [employer] Phone: Comment on above: Cholesterol Guidelines: <200 Desirable 200-240 Borderline >240 Undesirable Cholesterol in HDL [Mass/Vol] 48 mg/dL >40 [employer] Phone: Comment on above: HDL Guidelines: <40 Undesirable 40-59 Borderline >59 Desirable Cholesterol in LDL [Mass/Vol] 69 mg/dL 0 - 130 mg/dL [employer] Phone: Comment on above: LDL Guidelines: <100 Desirable 100-129 Near to/above Desirable 130-159 Borderline >159 Undesirable Direct (measured) LDL and calculated LDL are not interchangeable tests. Cholesterol.total/Cho lesterol in HDL [Mass ratio] 2.7 {ratio} <5 [employer] Phone: Triglyceride [Mass/Vol] 62 mg/dL <150 [employer] Phone: Comment on above: Triglyceride Guidelines: <150 Desirable 150-199 Borderline 200-499 High >499 Very high Based on AHA Guidelines for fasting triglyceride, February 2012. VLDL NOT REPORTED 1 - 30 mg/dL [employer] Phone: US PELVIS COMPLETEOrdered By : Jose J Aguilera on 04-28-2019 1. Bilateral ovarian follicles. Color flow projects over the bilateral ovarian parenchyma. 2. Heterogeneous echogenicity of the uterus. No discrete uterine mass or fibroid evident. [employer] Phone: EXAMINATION: PELVIC ULTRASOUND 04/28/2019 TECHNIQUE: Transabdominal pelvic ultrasound was performed with color doppler flow evaluation. COMPARISON: None HISTORY: ORDERING SYSTEM PROVIDED HISTORY: Menorrhagia with irregular cycle TECHNOLOGIST PROVIDED HISTORY: heavy menstrual cycles 39-year-old female with menorrhagia with irregular cycle FINDINGS: Measurements: Uterus: 10.8 x 6.5 x 7.8 cm. Endometrial stripe: 9 mm Right Ovary: 3.9 x 3.0 x 2.4 cm Left Ovary: 3.3 x 1.7 x 2.0 cm Ultrasound Findings: Patient's LMP is 02/12/2019. Uterus: Heterogeneous echogenicity of the uterus. No discrete uterine mass or fibroid evident. Endometrial stripe: Endometrial stripe is within normal limits. Right Ovary: Right ovary is within normal limits. Right ovarian follicles. Color flow projects over the right ovary. Left Ovary: Left ovary is within normal limits. Left ovarian follicles. Color flow projects over the left ovary. Free Fluid: No evidence of free fluid. [employer] Phone: Renny, Mhpn Incoming R adiant Results From [employer]/Sequence - 04/28/2019 8:38 AM EST EXAMINATION: PELVIC ULTRASOUND 04/28/2019 TECHNIQUE: Transabdominal pelvic ultrasound was performed with color doppler flow evaluation. COMPARISON: None HISTORY: ORDERING SYSTEM PROVIDED HISTORY: Menorrhagia with irregular cycle TECHNOLOGIST PROVIDED HISTORY: heavy menstrual cycles 39-year-old female with menorrhagia with irregular cycle FINDINGS: Measurements: Uterus: 10.8 x 6.5 x 7.8 cm. Endometrial stripe: 9 mm Right Ovary: 3.9 x 3.0 x 2.4 cm Left Ovary: 3.3 x 1.7 x 2.0 cm Ultrasound Findings: Patient's LMP is 02/12/2019. Uterus: Heterogeneous echogenicity of the uterus. No discrete uterine mass or fibroid evident. Endometrial stripe: Endometrial stripe is within normal limits. Right Ovary: Right ovary is within normal limits. Right ovarian follicles. Color flow projects over the right ovary. Left Ovary: Left ovary is within normal limits. Left ovarian follicles. Color flow projects over the left ovary. Free Fluid: No evidence of free fluid. IMPRESSION: 1. Bilateral ovarian follicles. Color flow projects over the bilateral ovarian parenchyma. 2. Heterogeneous echogenicity of the uterus. No discrete uterine mass or fibroid evident. ACell Phone: US THYROIDOrdered By: Alfred Aguilera on 04-28-2019 Enlarged multinodula r gland. The 4 largest are all TR 3 nodules, the largest measuring up to 2.8 cm in the isthmus. Utilizing strict TI-RADS criteria, ultrasound-guided fine-needle aspiration biopsy of the largest nodule is suggested with 1 year follow-up for the remaining nodules. As the largest nodule just meets the size threshold for biopsy and has a similar appearance to the remainder of the nodules, an alternative approach would be 1 year follow-up ultrasound for this nodule as well given the presence of a multinodular gland. RECOMMENDATIONS: ACR TI-RADS recommendations: TR5 (>= 7 points): FNA if >= 1 cm; follow-up if 0.5-0.9 cm in 1, 2, 3, 4, and 5 years TR4 (4-6 points): FNA if >= 1.5 cm; follow-up if 1.0-1.4 cm in 1, 2, 3, and 5 years TR3 (3 points): FNA if >= 2.5 cm; follow-up if 1.5-2.4 cm in 1, 3, and 5 years TR2 (2 points): No FNA or follow-up TR1 (0 points): No FNA or follow-up ACR TI-RADS recommends that no more than two nodules with the highest ACR TI-RADS point total should be biopsied and no more than four nodules should be followed. ACell Phone: EXAMINATION: THYROID ULTRASOUND 04/28/2019 COMPARISON: None. HISTORY: ORDERING SYSTEM PROVIDED HISTORY: Thyroid enlarged TECHNOLOGIST PROVIDED HISTORY: enlarged thyroid FINDINGS: Right thyroid lobe: 22.8 x 25.0 x 63.4 mm. Left thyroid lobe: 20.1 x 25.3 x 68.1 mm. Isthmus: 9.6 mm. Thyroid Gland: Thyroid gland is diffusely enlarged and heterogeneous. There are areas of mild increased vascularity. Nodules: Multiple bilateral thyroid nodules. The 4 largest included 13.1 x 9.3 x 10.6 mm TR 3 nodule in the right mid inferior gland. There are adjacent TR 3 nodules in the inferior left lobe measuring 18.0 x 18.3 x 13 mm and 17.1 x 19.6 x 14.8 mm. The largest is a 21.8 x 14.8 x 27.6 mm TR 3 nodule in the isthmus. Cervical lymphadenopathy: No abnormal lymph nodes in the imaged portions of the neck. ACell Phone: Renny, Mhpn Incoming R adiant Results From Tell[employer]/Sequence - 04/28/2019 7:12 PM EST EXAMINATION: THYROID ULTRASOUND 04/28/2019 COMPARISON: None. HISTORY: ORDERING SYSTEM PROVIDED HISTORY: Thyroid enlarged TECHNOLOGIST PROVIDED HISTORY: enlarged thyroid FINDINGS: Right thyroid lobe: 22.8 x 25.0 x 63.4 mm. Left thyroid lobe: 20.1 x 25.3 x 68.1 mm. Isthmus: 9.6 mm. Thyroid Gland: Thyroid gland is diffusely enlarged and heterogeneous. There are areas of mild increased vascularity. Nodules: Multiple bilateral thyroid nodules. The 4 largest included 13.1 x 9.3 x 10.6 mm TR 3 nodule in the right mid inferior gland. There are adjacent TR 3 nodules in the inferior left lobe measuring 18.0 x 18.3 x 13 mm and 17.1 x 19.6 x 14.8 mm. The largest is a 21.8 x 14.8 x 27.6 mm TR 3 nodule in the isthmus. Cervical lymphadenopathy: No abnormal lymph nodes in the imaged portions of the neck. IMPRESSION: Enlarged multinodular gland. The 4 largest are all TR 3 nodules, the largest measuring up to 2.8 cm in the isthmus. Utilizing strict TI-RADS criteria, ultrasound-guided fine-needle aspiration biopsy of the largest nodule is suggested with 1 year follow-up for the remaining nodules. As the largest nodule just meets the size threshold for biopsy and has a similar appearance to the remainder of the nodules, an alternative approach would be 1 year follow-up ultrasound for this nodule as well given the presence of a multinodular gland. RECOMMENDATIONS: ACR TI-RADS recommendations: TR5 (>= 7 points): FNA if >= 1 cm; follow-up if 0.5-0.9 cm in 1, 2, 3, 4, and 5 years TR4 (4-6 points): FNA if >= 1.5 cm; follow-up if 1.0-1.4 cm in 1, 2, 3, and 5 years TR3 (3 points): FNA if >= 2.5 cm; follow-up if 1.5-2.4 cm in 1, 3, and 5 years TR2 (2 points): No FNA or follow-up TR1 (0 points): No FNA or follow-up ACR TI-RADS recommends that no more than two nodules with the highest ACR TI-RADS point total should be biopsied and no more than four nodules should be followed. ACell Phone: Urinalysis With MicroscopicO rdered By: Jose J Aguilera on 04-28-2019 - ACell Phone: Amorphous, UA NOT REPORTED None A[employer] Phone: Bacteria, UA FEW Abnormal None [employer] Phone: Bilirubin Urine Negative NEGATIVE ACell Phone: Casts UA NOT REPORTED /LPF ACell Phone: Color, UA YELLOW YELLOW ACell Phone: Crystals UA NOT REPORTED None /HPF A[employer] Phone: Epithelial Cells UA 5 TO 10 /HPF A[employer] Phone: Glucose, Ur Negative NEGATIVE ACell Phone: Interpretation and review of laboratory results Abnormal [employer] Work Phone: Ketones Ql (U) Negative NEGATIVE [employer] Work Phone: Leukocyte esterase Test strip Ql (U) TRACE Abnormal NEGATIVE [employer] Work Phone: Mucus, UA 1+ Abnormal None [employer] Work Phone: Nitrite, Urine Negative NEGATIVE [employer] Work Phone: Other Observations UA NOT REPORTED NOT REQ. [facility] [place] Work Phone: [phone] pH, UA 6.0 [facility] [place] Work Phone: Protein, UA Negative NEGATIVE [facility] [place] Work Phone: RBC, UA 0 TO 2 /HPF [employer] Work Phone: Renal Epithelial, Urine NOT REPORTED 0 /HPF [facility] [place] Work Phone: Specific [place], UA 1.020 [employer] Work Phone: Trichomonas, UA NOT REPORTED None [employer] Work Phone: Turbidity UA CLEAR CLEAR [employer] Work Phone: Urinalysis Comments NOT REPORTED [facility] [employer] Work Phone: Urine Hgb Negative NEGATIVE [employer] Work Phone: Urobilinogen, Urine Normal Normal [facility] [place] Work Phone: WBC, UA 2 TO 5 /HPF [facility] [place] Work Phone: [phone] Yeast, UA NOT REPORTED None [employer] Work Phone: Vital Signs Date Time Vital Sign Value Performing Clinician Jatinder garcia 11-12-2021 17:01-0400 Body temperature 98.49 [degF] Brayan Byrontali DO Work Phone: [facility]IL[facility] [employer]UN[facility] [employer] 11-12-2021 17:01-0400 Diastolic blood pressure 82 mm[Hg] Brayan Waters DO Work Phone: [employer] 11-12-2021 17:01-0400 Heart rate 75 /min Brayan Waters DO Work Phone: [facility] [employer] 11-12-2021 17:01-0400 Respiratory rate 20 /min Brayan Waters DO Work Phone: [facility] 11-12-2021 17:01-0400 Systolic blood pressure 136 mm[Hg] Brayan Waters DO Work Phone: [facility] 11-12-2021 15:08-0400 SaO2% (BldA) [Mass fraction] 97 % Brayan Waters DO Work Phone: [facility] 11-11-2021 13:07-0400 Body mass index (BMI) [Ratio] 49.78 kg/m2 Brayan Waters DO Work Phone: [facility] 11-11-2021 13:07-0400 Body weight 148.5 kg Brayan Waters DO Work Phone: [facility] 07-03-2021 11:26-0500 Body temperature 98.01 [degF] Hermila Abarca DO Work Phone: [employer] 07-03-2021 11:26-0500 Diastolic blood pressure 64 mm[Hg] Hermila Abarca DO Work Phone: [employer] 07-03-2021 11:26-0500 Heart rate 67 /min Hermila Abarca DO Work Phone: [employer] 07-03-2021 11:26-0500 Respiratory rate 16 /min Hermila Abarca DO Work Phone: [employer] 07-03-2021 11:26-0500 SaO2% (BldA) [Mass fraction] 99 % Hermila Abarca DO Work Phone: [employer] 07-03-2021 11:26-0500 Systolic blood pressure 137 mm[Hg] Hermila Tracytomas DO Work Phone: [employer] 03-06-2021 13:14-0400 Diastolic blood pressure 98 mm[Hg] Brayan Waters [facility] Work Phone: [employer] Phone: 03-06-2021 13:14-0400 Systolic blood pressure 115 mm[Hg] Brayan Byronsalomeyann [facility] Work Phone: [employer] Phone: 03-06-2021 13:12-0400 Body height 172.7 cm Brayan Waters [facility] Work Phone: [employer] Phone: 03-06-2021 13:12-0400 Body mass index (BMI) [Ratio] 44.09 kg/m2 Brayan Waters [facility] Work Phone: A[employer] Phone: 03-06-2021 13:12-0400 Body temperature 97.11 [degF] Brayan Waters [facility] Work Phone: [employer] Phone: 03-06-2021 13:12-0400 Body weight 131.54 kg Brayan Waters [facility] Work Phone: [employer] Phone: 03-06-2021 13:12-0400 Heart rate 83 /min Brayan Linyann [facility] Work Phone: A[employer] Phone: 03-06-2021 13:12-0400 Respiratory rate 16 /min Brayan Byronsalomeyann [facility] Work Phone: [employer] Phone: 03-06-2021 13:12-0400 SaO2% (BldA) [Mass fraction] 100 % Brayan Waters [facility] Work Phone: ACell Phone: Encounters Encounter Date Encounter Type Care Provider Facility Start: 08-25-2022 End: 08-27-[address] DOCTOR SANCHEZ Facility:[facility] Start: 06-07-[address] VINNIE TORRES . Fa cility:[facility] Start: 05-26-2022 End: 05-26-[address] VINNIE TORRES . Facility:[facility] Start: 11-11-2021 End: 11-12-2021 Evaluation and management of [facility] Start: 11-11-2021 End: 11-12-2021 Evaluation and management of inpatient Brayan Waters DO Work Phone: [facility] Comment on above: Vaginal vault prolap se (Primary Dx); Complications, , surgical Start: 11-08-2021 End: 11-11-2021 Evaluation and management of inpatient [facility] Start: 10-17-2021 End: 10-18-2021 ambulatory AMELIA AGUILAR [facility] Start: 10-17-2021 End: 10-17-2021 Subsequent hospital visit by physician Jose J Aguilera MD Work Phone: [facility] DO[facility] Comment on above: 36 weeks gestation o f Start: 09-20-2021 End: 09-20-2021 ambulatory [facility] Danielle [facility] Start: 08-24-2021 End: 08-25-2021 ambulatory [facility] Start: 07-13-2021 End: 07-14-2021 ambulatory KERA Thompson YURIY [facility] Start: 07-13-2021 End: 07-13-2021 Subsequent hospital visit by physician Jose J Aguilera MD Work Phone: [facility] Start: 07-03-2021 End: 07-03-2021 ambulatory [facility] Start: 07-03-2021 End: 07-03-2021 Subsequent hospital visit by physician Hermila Abarca DO Work Phone: [facility] Labor [facility] Delivery Start: 06-29-2021 End: 06-30-2021 ambulatory KERA YAN [facility] Start: 06-29-2021 End: 06-29-2021 Subsequent hospital visit by physician Jose J Aguilera MD Work Phone: [facility] Start: 06-06-2021 End: 06-07-2021 ambulatory AMELIA Loo [facility] Start: 05-17-2021 End: 05-18-2021 ambulatory AMELIA Cinda [facility] Start: 05-16-2021 End: 05-17-2021 [facility] Start: 04-14-2021 End: 04-14-2021 ambulatory AMELIA Loo [facility] Start: 03-24-2021 End: 03-24-2021 ambulatory AMELIA Loo [facility] Start: 03-18-2021 End: 03-19-2021 ambulatory AMELIA Loo [facility] Start: 03-18-2021 End: 03-18-2021 Subsequent hospital visit by physician Jose J Aguilera MD Work Phone: [facility] [place] [facility] DO[facility] Start: 03-17-2021 End: 03-17-2021 ambulatory AMELIA Cinda [facility] Start: 03-14-2021 End: 03-15-2021 ambulatory AMELIA Loo [facility] Start: 03-14-2021 End: 03-14-2021 Subsequent hospital visit by physician Jose J Aguilera MD Work Phone: [facility] Comment on above: Missed menses Start: 03-11-2021 End: 03-12-2021 ambulatory AMELIA Cinda [facility] Start: 03-10-2021 End: 03-10-2021 ambulatory AMELIA Cinda [facility] Start: 03-09-2021 End: 03-09-2021 Subsequent hospital visit by physician Jose J Aguilera MD Work Phone: [facility] DO[facility] Comment on above: Amenorrhea Start: 03-06-2021 End: 03-06-2021 Emergency department patient visit JOSE J AGUILERA [facility] Start: 03-06-2021 End: 03-06-2021 Emergency department patient visit Brayan Waters DO Work Phone: [facility] ED Comment on above: Urinary tract infect ion in mother during first trimester of (Primary Dx); Positive test Start: 01-12-2021 End: 01-12-2021 Emergency department patient visit REFERRED SELF Facility:[facility] Start: 11-10-2020 End: 11-10-2020 Emergency department patient visit MALLORYVIDHI SAMANTHA Facility:[facility] Start: 07-05-2020 End: 07-05-2020 Subsequent hospital visit by physician Jose J NEVILLE LAB DOCTOR Comment on above: with incon clusive viability, single or unspecified fetus; Missed menses Start: 06-21-2020 End: 06-21-2020 Emergency department patient visit JOSE J AGUILERA Facility:[facility] Start: 06-21-2020 End: 06-21-2020 Subsequent hospital visit by physician Jose J N[facility] LAB DOCTOR Comment on above: Missed menses Start: 06-14-2020 End: 06-14-2020 Subsequent hospital visit by physician Jose J N[facility] LAB DOCTOR Comment on above: Missed menses; Positive test Start: 03-17-2020 End: 03-17-2020 Subsequent hospital visit by physician Jose J N[facility]ILLE LAB DOCTOR Comment on above: Incomplete Start: 03-10-2020 End: 03-10-2020 Subsequent hospital visit by physician Jose J [facility] LAB DOCTOR Comment on above: Incomplete ; Vaginal bleeding Start: 03-08-2020 End: 03-08-2020 Subsequent hospital visit by physician Jose J [facility] LAB DOCTOR Comment on above: Threatened miscarria ge in early Start: 03-05-2020 End: 03-05-2020 Subsequent hospital visit by physician Jose J [facility] LAB DOCTOR Comment on above: Threatened miscarria ge in early Start: 03-03-2020 End: 03-03-2020 Subsequent hospital visit by physician Jose J N[facility]LE LAB DOCTOR Comment on above: Threatened miscarria ge in early Start: 03-01-2020 End: 03-01-2020 Emergency department patient visit JOSE J AGUILERA Facility:[facility] Start: 02-23-2020 End: 02-23-2020 Emergency department patient visit ABHILASH MURRELL Facility:[facility] Start: 12-19-2019 End: 12-19-2019 Subsequent hospital visit by physician Jose J [facility] LAB DOCTOR Comment on above: Suspected COVID-19 v irus infection Start: 05-05-2019 End: 05-07-2019 Subsequent hospital visit by physician [facility] Ir Nurse [facility] Special Procedures Comment on above: Multiple thyroid nod ules Start: 04-28-2019 End: 04-28-2019 Subsequent hospital visit by physician Jose J Aguilera MD Work Phone: [facility] Laboratory Comment on above: Lower abdominal pain ; Menorrhagia with irregular cycle; BMI 40.0-44.9, adult (HCC) Start: 04-28-2019 End: 04-30-2019 Subsequent hospital visit by physician [facility] Mammography Comment on above: Thyroid enlarged Menorrhagia with irr egular cycle Start: 02-13-2019 End: 02-13-2019 Subsequent hospital visit by physician Jose J NEVILLE LAB DOCTOR Comment on above: Screen for STD (sexu ally transmitted disease); Women's annual routine gynecological examination Procedures Date Procedure Procedure Detail Performing Clinician Start: 11-12-2021 Assay of magnesium Step oscar Gimenez [employer] Work Phone: Start: 11-12-2021 Assay of magnesium Step oscar Gimenez [employer] Work Phone: Start: 11-12-2021 Assay of magnesium Step oscar Gimenez [employer] CN[employer] Work Phone: Start: 11-11-2021 Assay of magnesium Step oscar Gimenez [employer] CN[employer] Work Phone: Start: 11-11-2021 Antibody screen Brayan dawson DO Work Phone: Start: 11-11-2021 Comprehensive metabo lic panel Kate Medeiros DO Work Phone: Start: 11-11-2021 Blood typing serologic heydi Zaragoza MD Work Phone: Start: 11-11-2021 End: 11-11-2021 Curettage Carmencita Lal Work Phone: Start: 11-11-2021 Urinalysis microscopic only Brayan Matthewssalomeyann DO Work Phone: Start: 11-11-2021 Urnls dip stick/tabl et rgnt auto w/o microscopy Brayan Waters DO Work Phone: Start: 11-11-2021 End: 11-11-2021 Basic metabolic panel calcium total Brayan Waters DO Work Phone: Start: 04-13-2021 Microscopic observat ion [Identifier] in Cervix by Cyto stain Jose J Aguilera MD Work Phone: Start: 03-18-2021 Gonadotropin chorion ic quantitative Amelia L Leese [employer] Work Phone: Start: 03-06-2021 Us preg uterus real time w/image dcmtn transvag Brayan Matthewssalomeyann DO Work Phone: Start: 03-06-2021 Comprehensive metabo lic panel Brayan Waters DO Work Phone: Start: 03-06-2021 COVID-19, RAPID Brayan dawson DO Work Phone: Start: 03-06-2021 Urinalysis microscopic only Brayan Matthewssalomeyann DO Work Phone: Start: 03-06-2021 Urine test visual color cmprsn meths Brayan Matthewstali DO Work Phone: Start: 07-05-2020 Gonadotropin chorion ic quantitative Amelia L Leese Work Phone: Start: 06-21-2020 Gonadotropin chorion ic quantitative Amelia L Leese Work Phone: Start: 06-14-2020 Gonadotropin chorion ic quantitative Amelia L Leese Work Phone: Start: 03-10-2020 Blood count complete auto&auto difrntl wbc Amelia L Leese Work Phone: Start: 03-10-2020 Gonadotropin chorion ic quantitative Amelia L Leese Work Phone: Start: 03-05-2020 Gonadotropin chorion ic quantitative Amelia L Leese Work Phone: Start: 03-03-2020 Gonadotropin chorion ic quantitative Amelia L Leese Work Phone: Start: 03-01-2020 Antibody screen ABHILASH MURRELL Comment on above: Performed By: #### [id number] ####[address] Start: 05-05-2019 IR BIOPSY THYROID PE RC CORE NEEDLE Jose J Aguilera MD Work Phone: Start: 05-05-2019 SURGICAL PATHOLOGY Eulalio Mendoza MD Work Phone: Start: 04-28-2019 Urnls dip stick/tabl et reagent auto microscopy Jose J Aguilera MD Work Phone: Start: 04-28-2019 Comprehensive metabo lic panel Jose J Aguilera MD Work Phone: Start: 04-28-2019 Lipid panel Jose J hawley MD Work Phone: Start: 04-28-2019 Us soft tissue head & neck real time imge docm Jose J Aguilera MD Work Phone: Start: 04-28-2019 Us pelvic nonobstetr ic real-time image complete Jose J Aguilera MD Work Phone: Start: 02-13-2019 Microscopic observat ion [Identifier] in Cervix by Cyto stain Brayan Waters DO Work Phone: Plan of Treatment Date Care Activity Detail Author Start: 08-24-2031 DTaP/Tdap/Td vaccine (3 - Td or Tdap) DTaP/Tdap/Td vaccine (3 - Td or Tdap) [facility] Start: 05-15-2028 DTaP/Tdap/Td vaccine (2 - Td or Tdap) DTaP/Tdap/Td vaccine (2 - Td or Tdap) [facility] Start: 05-15-2028 DTaP/Tdap/Td vaccine (2 - Td) DTaP/Tdap/Td vaccine (2 - Td) [place], [place] Start: 04-13-2026 Screening for malign ant neoplasm of cervix [facility] Start: 04-13-2024 Screening for malign ant neoplasm of cervix Pap smear [facility] Start: 02-14-2024 Cervical cancer screen Cervical canc er screen [facility] [employer] Phone: Start: 02-14-2024 Screening for malign ant neoplasm of cervix [place], [place] Start: 07-19-2022 Depression Screen Depression Screen [facility] Start: 04-13-2022 Thyroid stimulating hormone measurement TSH testing [facility] Start: 02-13-2022 Screening for malign ant neoplasm of cervix Pap smear [facility] [employer] Phone: Start: 01-12-2022 Influenza vaccination Flu vaccine (# 1) [facility] Start: 11-23-2021 End: 11-23-2021 ambulatory 11/23/2021 Visit Obstetrics and Gynecology Amelia Aguilar, [employer] [address] [place] [id number] [employer] Start: 11-07-2021 End: 11-07-2021 Patient encounter procedure 11/07/2021 Routine Obstetrics and Gynecology Carmencita Andres MD [address] [address] [employer] Start: 10-31-2021 End: 10-31-2021 Patient encounter procedure 10/31/2021 Routine Obstetrics and Gynecology Carmencita Andres MD [address] [facility] [address] [place] [id number] [employer] Start: 10-24-2021 End: 10-24-2021 Patient encounter procedure 10/24/2021 Routine Obstetrics and Gynecology Carmencita Andres MD [address] [address] [employer] Start: 08-17-2021 End: 08-17-2021 Patient encounter procedure 08/17/2021 Routine Perinatology [facility] Start: 07-19-2021 End: 07-19-2021 Patient encounter procedure 07/19/2021 Routine Obstetrics and Gynecology Carmencita Andres MD [address] [address] [employer] Start: 07-12-2021 End: 07-12-2021 Patient encounter procedure 07/12/2021 Routine Obstetrics and Gynecology Carmencita Andres MD [address] [address] [employer] Start: 06-14-2021 Depression Screen Depression Screen [facility] Start: 03-24-2021 End: 03-24-2021 Professional / ancillary services management 03/24/2021 Ancillary Procedure Obstetrics and Gynecology [employer] Start: 03-11-2021 End: 03-11-2021 Nursing evaluation of patient and report 03/11/2021 Nurse Only Obstetrics and Gynecology [employer] Start: 01-12-2021 Influenza vaccination Flu vaccine (# 1) [facility] Work Phone: Start: 07-12-2020 End: 07-12-2020 Routine 07/12/2020 Routine Obstetrics and Gynecology Carmencita Andres MD [address] [address] [phone] [employer] Start: 07-09-2020 End: 07-09-2020 Nurse Only 07/09/2020 Nurse Only Obstetrics and Gynecology [employer] Start: 07-05-2020 End: 07-05-2020 Ancillary Procedure 07/05/2020 Ancillary Procedure Obstetrics and Gynecology [employer] Start: 01-13-2020 Influenza vaccination Flu vaccine (# 1) [place], [place] Start: 07-21-2019 End: 07-21-2019 Patient encounter procedure 07/21/2019 Office Visit Obstetrics and Gynecology Carmencita Andres MD [address] [facility] [address] [place] [address] [phone] [employer] Start: 07-09-2019 End: 07-09-2019 Professional / ancillary services management 07/09/2019 Ancillary Procedure Obstetrics and Gynecology [employer] Start: 05-28-2019 End: 05-28-2019 Patient encounter procedure 05/28/2019 Office Visit Family Medicine Jose J Aguilera MD [address] [facility] [address] [place] [id number] [facility] Start: 05-27-2019 TSH testing TSH testing [place], [place] Start: 05-05-2019 End: 05-05-2019 Patient encounter procedure 05/05/2019 Appointment Radiology Special Procedures 1, [facility] Ir Nurse [facility] Start: 04-29-2019 End: 04-29-2019 Patient encounter procedure 04/29/2019 Office Visit Obstetrics and Gynecology Carmencita Andres MD [address] [place] [address] [phone] [facility] ASSISTANT TO THE PRESIDENT Start: 02-17-2019 End: 02-17-2019 Nurse Only 02/17/2019 Nurse Only Obstetrics and Gynecology [facility] ASSISTANT TO THE PRESIDENT Start: 01-12-2019 Influenza vaccination Flu vaccine (# 1) [place] Start: 2003 Cervical cancer screen Cervical canc er screen [place] Start: 02-17-2000 Hepatitis C screening Hepatitis C sc reen [facility] Start: 1995 Varicella Vaccine (1 of 2 - 13+ 2-dose series) Varicella Vaccine (1 of 2 - 13+ 2-dose series) [place] Start: 1994 COVID-19 Vaccine (1) COVID-19 Vaccin e (1) [facility] Work Phone: Start: 1994 Depression Screen Depression Screen [facility] Start: 02-17-1988 Pneumococcal 0-64 ye ars Vaccine (1 - PCV) Pneumococcal 0-64 years Vaccine (1 - PCV) [facility] Start: 02-17-1988 Pneumococcal 0-64 ye ars Vaccine (1 of 1 - PPSV23) Pneumococcal 0-64 years Vaccine (1 of 1 - PPSV23) [place] Start: 02-17-1988 Pneumococcal 0-64 ye ars Vaccine (1 of 2 - PPSV23) Pneumococcal 0-64 years Vaccine (1 of 2 - PPSV23) [facility] Start: 1987 COVID-19 Vaccine (1) COVID-19 Vaccin e (1) [facility] Start: 1983 Varicella vaccine (1 of 2 - 2-dose childhood series) Varicella vaccine (1 of 2 - 2-dose childhood series) [facility] Start: 1982 Hepatitis C screening [facility] End: 02-14-2019 C.trachomatis N.gonorrhoeae DNA C.trachomatis N.gonorrhoeae DNA Microbiology Routine Screen for STD (sexually transmitted disease) Women's annual routine gynecological examination 1 Occurrences starting 02/14/2019 until 02/14/2019 [place] Comment on above: 1 Occurrences starti ng 02/14/2019 until 02/14/2019 C.trachomatis N.gonorrhoeae DNA C.trachomatis N.gonorrhoeae DNA Microbiology Routine Screen for STD (sexually transmitted disease) Women's annual routine gynecological examination 02/13/2019 12:28 AM EDT [place] End: 12-19-2019 COVID-19 Ambulatory COVID-19 Ambulatory Lab Routine Suspected COVID-19 virus infection 1 Occurrences starting 12/19/2019 until 12/19/2019 [facility] [id number] [place] Comment on above: 1 Occurrences starti ng 12/19/2019 until 12/19/2019 COVID-19 Ambulatory COVID-19 Amb ulatory Lab Routine Suspected COVID-19 virus infection 12/19/2019 5:18 PM EDT [place] End: 03-06-2021 Culture, Urine Culture, Urine Microbiology Routine Once for 1 Occurrences starting 03/06/2021 until 03/06/2021 [employer] Phone: Comment on above: Once for 1 Occurrenc es starting 03/06/2021 until 03/06/2021 Culture, Urine Culture, Urine Microbiology Routine 03/06/2021 1:46 PM EDT [employer] Phone: End: 10-17-2021 Group B Strep,PCR [facility] [employer] Phone: Comment on above: 1 Occurrences starti ng 10/17/2021 until 10/17/2021 End: 03-08-2020 hCG, Quantitative, hCG, Quantitative, Lab Routine Threatened miscarriage in early 1 Occurrences starting 03/08/2020 until 03/08/2020 [facility] [place] Comment on above: 1 Occurrences starti ng 03/08/2020 until 03/08/2020 End: 03-09-2021 HCG, Quantitative, HCG, Quantitative, Lab Routine Amenorrhea 1 Occurrences starting 03/09/2021 until 03/09/2021 [employer] Phone: Comment on above: 1 Occurrences starti ng 03/09/2021 until 03/09/2021 HCG, Quantitative, [employer] Phone: End: 03-14-2021 HCG, Quantitative, HCG, Quantitative, Lab Routine Missed menses 1 Occurrences starting 03/14/2021 until 03/14/2021 [employer] Phone: Comment on above: 1 Occurrences starti ng 03/14/2021 until 03/14/2021 End: 04-28-2019 Hemoglobin A1c/Hemoglobin.total in Blood Hemoglobin A1C Lab Routine BMI 40.0-44.9, adult ([facility]) 1 Occurrences starting 04/28/2019 until 04/28/2019 [employer] Phone: Comment on above: 1 Occurrences starti ng 04/28/2019 until 04/28/2019 Hemoglobin A1c/Hemoglobin.total in Blood Hemoglobin A1C Lab Routine BMI 40.0-44.9, adult ([facility]) 04/28/2019 8:55 AM [employer] Phone: End: 11-18-2021 Magnesium [Mass/volume] in Serum or Plasma Magnesium Lab Timed Every 6 Hours (Lab) for 7 Days starting 11/11/2021 until 11/18/2021, 4 completed [employer] Phone: Comment on above: Every 6 Hours (Lab) for 7 Days starting 11/11/2021 until 11/18/2021, 4 completed End: 06-29-2021 MISCELLANEOUS TESTING [employer] Phone: Comment on above: Once for 1 Occurrenc es starting 06/29/2021 until 06/29/2021 End: 07-13-2021 MISCELLANEOUS TESTING [employer] Phone: Comment on above: Once for 1 Occurrenc es starting 07/13/2021 until 07/13/2021 Nonrebreather mask oxygen Nonrebreather mask oxygen Respiratory Care Routine As directed - RT (PRN) until discontinued starting 11/11/2021 [employer] Phone: Comment on above: As directed - RT (MS N) until discontinued starting 11/11/2021 End: 03-17-2020 OP Specimen Reject OP Specimen Reject Lab Routine Once for 1 Occurrences starting 03/17/2020 until 03/17/2020 [employer] Comment on above: Once for 1 Occurrenc es starting 03/17/2020 until 03/17/2020 OP Specimen Reject OP Specimen R eject Lab Routine 03/17/2020 11:17 PM EST [facility] [employer] [facility] Oxygen therapy [[facility]] Initiate Oxygen Therapy Protocol Respiratory Care Routine Daily until discontinued starting 11/11/2021 [employer] Phone: Comment on above: Daily until disconti nued starting 11/11/2021 Spirometry panel Incentive armando metry Respiratory Care Routine Every 2hr while awake until discontinued starting 11/11/2021 [employer] Phone: Comment on above: Every 2hr while awak e until discontinued starting 11/11/2021 Surgical Pathology Surgical Path ology Lab Routine Complications, , surgical Release Upon Ordering for 1 Occurrences starting 11/11/2021 [employer] Phone: Comment on above: Release Upon Orderin g for 1 Occurrences starting 11/11/2021 End: 11-11-2021 SURGICAL PATHOLOGY REPORT SURGICAL PATHOLOGY REPORT Lab Routine Once for 1 Occurrences starting 11/11/2021 until 11/11/2021 [employer] Phone: Comment on above: Once for 1 Occurrenc es starting 11/11/2021 until 11/11/2021 End: 05-05-2019 US BIOPSY THYROID US BIOPSY THYROID Imaging Routine Multiple thyroid nodules 1 Occurrences starting 05/05/2019 until 05/05/2019 [employer] Phone: Comment on above: 1 Occurrences starti ng 05/05/2019 until 05/05/2019 End: 02-14-2019 VAGINITIS DNA PROBE VAGINITIS DNA PROBE Microbiology Routine Screen for STD (sexually transmitted disease) Women's annual routine gynecological examination 1 Occurrences starting 02/14/2019 until 02/14/2019 [place] Comment on above: 1 Occurrences starti ng 02/14/2019 until 02/14/2019 VAGINITIS DNA PROBE VAGINITIS DN A PROBE Microbiology Routine Screen for STD (sexually transmitted disease) Women's annual routine gynecological examination 02/13/2019 12:29 AM EDT [place] Immunizations Immunization Date Immunization Notes Care Provider Halley mayberry 08-23-2021 tetanus toxoid, redu laura diphtheria toxoid, and acellular pertussis vaccine, adsorbed Jose J Aguilera MD Work Phone: [employer] 06-14-2021 Influenza, injectabl e, Madin Felecia Canine Kidney, preservative free, quadrivalent Jose J Aguilera MD Work Phone: [facility] Work Phone: 05-15-2018 tetanus toxoid, redu laura diphtheria toxoid, and acellular pertussis vaccine, adsorbed Jose J Aguilera [facility] Payers Date Payer Category Payer Unknown [facility] xxxxxxxxxxx 2019-Present [phone] CLAIMS DEPARTMENT [address] [place] [address] xxxxxxxxxxx [id number] 2017 Unknown [facility] xxxxxxxxxxxx 2017-Present [phone] [address] [place] [address] xxxxxxxxxxxx [id number] 1982 Unknown [id number] 2.16.840.1.285513.3.579.2.647 1982 Unknown [id number] 2.16.840.1.236975.3.579.2.647 1982 Unknown [id number] 2.16.840.1.760213.3.579.2.647 1982 Unknown [id number] 2.16.840.1.664570.3.579.2.647 1982 Unknown [id number] 2.16.840.1.348107.3.579.2.647 1982 Unknown [id number] 2.16.840.1.109390.3.579.2.175 1982 Unknown [id number] 2.16.840.1.091577.3.579.2.175 1982 Unknown [id number] 2.16.840.1.539373.3.579.2.175 1982 Unknown [id number] 2.16.840.1.225688.3.579.2.175 1982 Unknown [id number] 2.16.840.1.409086.3.579.2.175 1982 Unknown [id number] 2.16.840.1.584920.3.579.2.175 1982 Unknown [id number] 2.16.840.1.874227.3.579.2.175 1982 Unknown [id number] 2.16.840.1.255160.3.579.2.175 1982 Unknown [id number] 2.16.840.1.650854.3.579.2.175 1982 Unknown [id number] 2.16840.1.526229.3.579.2.175 1982 Unknown [id number] 2.16840.1.500040.3.579.2.175 1982 Unknown [id number] 2.16.840.1.442636.3.579.2.175 1982 Unknown [id number] 2.16840.1.495638.3.579.2.175 1982 Unknown [id number] 2.16840.1.558184.3.579.2.176 1982 Unknown [id number] 2.16840.1.043969.3.579.2.176 1982 Unknown [id number] 2.16.840.1.440793.3.579.2.176 1982 Unknown [id number] 2.16840.1.702893.3.579.2.176 1982 Unknown [id number] 2.16840.1.099705.3.579.2.176 1982 Unknown [id number] 2.16840.1.408113.3.579.2.176 1982 Unknown [id number] 2.16.840.1.419796.3.579.2.593 1982 Unknown [id number] 2.16.840.1.677263.3.579.2.593 1982 Unknown [id number] 2.16.840.1.057999.3.579.2.593 1959 Unknown [id number] [id number].3 .811310.315 1959 Unknown [id number] Social History Date Type Detail Facility Start: 12-13-2017 End: 02-13-2019 Tobacco smoking status NHIS Current every day smoker [facility] History of tobacco use Cigarette [place] Start: 12-13-2017 End: 02-13-2019 Cigarettes smoked current (pack per day) - Reported [place] Start: 02-13-2019 Alcohol intake Yes [place] Start: 02-13-2019 History SDOH Alcohol Frequency 2 [place] Start: 02-13-2019 End: 04-13-2021 History SDOH Alcohol Std Drinks 1 [place] Start: 02-13-2019 Tobacco Comment pt states she has been trying, pt started as a teen [place] Start: 05-15-2018 Alcohol Comment rare [facility] [place], [place] Start: 1980 Sex Assigned At Not on file [place] Start: 12-13-2017 End: 12-11-2019 Tobacco use and exposure Never used [place] Start: 04-30-2019 End: 12-11-2019 Alcohol intake Current drinker of alcohol (finding) [facility] [employer] Phone: Start: 03-02-2020 End: 11-11-2021 Alcohol intake Ex-drinker (finding) [facility] Start: 09-10-2021 End: 11-11-2021 Exposure to SARS-CoV-2 (event) Not sure [place] Start: 04-13-2021 History SDOH Financial 5 [facility] Work Phone: Start: 02-20-2021 [facility] Work Phone: Start: 1980 Sex Assigned At Female [facility] Start: 08-30-2021 Tobacco Comment keep 4 or und er/day 08/30/2021 [facility] Work Phone: Clinical Notes 05-05-2019 to 08-25-2022 Sierra Tabor, RN - 11/12/2021 5:53 PM EDJavier Tabor, RN - 11/12/2021 5:08 PM Asad Tabor, RN - 11/12/2021 1:26 PM Yuni Castro, DO - 11/12/2021 8:22 AM EDT Note Date & Type Note Facility 08-25-2022 Note OP Note OPERATION DATE: 08/26/2022 PROCEDURE: D AND C hysteroscopy with Myosure. PREOPERATIVE DIAGNOSIS: Menorrhagia, acute blood loss anemia with superimposed chronic blood loss anemia, thickened endometrial lining. POSTOPERATIVE DIAGNOSIS: Menorrhagia, acute blood loss anemia with superimposed chronic blood loss anemia, thickened endometrial lining. ANESTHESIA: General. SURGEON: Devan Rodriguez D.O. PRINT OPERATOR: None. FINDINGS: Thickened endometrial lining. Significant amount of tissue and debris. No significant polyps, or fibroids. Both ostia seen. SPECIMEN: Significant amount of endometrial curettings. PROCEDURE: The patient was taken back to the Operating Room where she was prepped and draped in normal sterile fashion after being placed under general anesthesia without difficulty. She was also placed in the dorsal lithotomy position. A weighted speculum was placed in the patient's vagina. The anterior lip of the cervix was identified and grasped with a single tooth tenaculum. The patient's uterus was then sounded roughly to 12 cm. The patient was then gently dilated using Hegar dilators. The hysteroscope was passed through the patient's cervix into the uterus. Both ostia were identified; slightly thickened appearing endometrium. No gross evidence of malignancy. Please note that the MyoSure apparatus was placed through the hysteroscope under direct visualization. The apparatus was engaged and endometrial curettings were removed under direct visualization. The MyoSure was then removed from the scope. The hysteroscope was then removed from the patient's uterus. The endometrial curettings were sent out to pathology. The single tooth tenaculum was then removed from the patient's anterior lip of the cervix where excellent hemostasis was noted. All instruments were removed from the patient's vagina. The patient tolerated the procedure well. Sponge, lap and needle counts were correct times two. The patient was taken to the Recovery Room in stable condition. [facility] 08-25-2022 Note OPERATIVE NOTE OPERATION DATE: 08/25/2022 PROCEDURE: D AND C hysteroscopy with Myosure. PREOPERATIVE DIAGNOSIS: Menorrhagia, acute blood loss anemia with superimposed chronic blood loss anemia, thickened endometrial lining. POSTOPERATIVE DIAGNOSIS: Menorrhagia, acute blood loss anemia with superimposed chronic blood loss anemia, thickened endometrial lining. ANESTHESIA: General. SURGEON: Devan Rodriguez D.O. PRINT OPERATOR: None. FINDINGS: Thickened endometrial lining. Significant amount of tissue and debris. No significant polyps, or fibroids. Both ostia seen. SPECIMEN: Significant amount of endometrial curettings. PROCEDURE: The patient was taken back to the Operating Room where she was prepped and draped in normal sterile fashion after being placed under general anesthesia without difficulty. She was also placed in the dorsal lithotomy position. A weighted speculum was placed in the patient's vagina. The anterior lip of the cervix was identified and grasped with a single tooth tenaculum. The patient's uterus was then sounded roughly to 12 cm. The patient was then gently dilated using Hegar dilators. The hysteroscope was passed through the patient's cervix into the uterus. Both ostia were identified; slightly thickened appearing endometrium. No gross evidence of malignancy. Please note that the MyoSure apparatus was placed through the hysteroscope under direct visualization. The apparatus was engaged and endometrial curettings were removed under direct visualization. The MyoSure was then removed from the scope. The hysteroscope was then removed from the patient's uterus. The endometrial curettings were sent out to pathology. The single tooth tenaculum was then removed from the patient's anterior lip of the cervix where excellent hemostasis was noted. All instruments were removed from the patient's vagina. The patient tolerated the procedure well. Sponge, lap and needle counts were correct times two. The patient was taken to the Recovery Room in stable condition. [facility] 11-12-2021 History of Presen t illness Narrative Pt receives d/c instructions, verbalizes understanding. Pt ambulates off of the unit with Leander MEDELLIN and Eligio (lead network engineer). Pt is d/c'd to private residence. Pt is independent when d/c'd. Leander MEDELLIN notifies Dr. Castro of last [address] Castro states that she will notify Dr. Andres and then she will put the d/c order in. Leander MEDELLIN notifies Dr. Castro of elevated blood pressure and serum mag level. Dr. Castro states to repeat b/p at 1500 and 1700 and if b/p are stabel then the patient will be able to be discharged. Dr. Andres at bedside POST OPERATIVE DAY # 1 Juanis Oneill is a 41 y.o. female This patient was seen and examined today. She POD#1 s/p EUA and suction D&C. She is PPD#3 from a . She had presented to the ED yesterday for vaginal mass, there was concern for retained POCs and was taken to the OR. She was a known gestational hypertensive and following surgery she was noted to have severe range Bps with P/C of 0.4. Due to elevated Bps she was started on magnesium sulfate x24hrs PP. Her was complicated by: Patient Active Problem List Diagnosis Tobacco Use GERD Hearing problem of both ears Anemia Rh Negative gHTN (G7) 11/09/21 F APG 8/9 Wt 7#13 Hx SAB x 2 (G5, G6) Endometriosis Retained products of conception after delivery with complications Vaginal vault prolapse Today she is doing well without any chief complaint. Her lochia is light. She denies chest pain, shortness of breath, headache, lightheadedness, blurred vision and peripheral edema. She is pumping and she denies any signs or symptoms of mastitis. She is ambulating well. She is voiding without difficulty. She currently denies S/S of depression. Flatus present. Bowel movement absent. She is tolerating solids. She denies any s/s of PreE. Vital Signs: Vitals: 11/12/21 0601 11/12/21 0702 11/12/21 0705 11/12/21 0718 BP: 138/68 134/63 Pulse: 60 60 Resp: 14 18 Temp: 98.2 F (36.8 C) TempSrc: Oral SpO2: 98% Weight: Urine Input & Output last 24hrs: Intake/Output Summary (Last 24 hours) at 11/12/2021 0822 Last data filed at 11/12/2021 0821 Gross per 24 hour Intake 2170.7 ml Output 5200 ml Net -3029.3 ml Physical Exam: General: no apparent distress, alert and cooperative Neurologic: alert, oriented, normal speech, no focal findings or movement disorder noted Lungs: No increased work of breathing Heart: Regular rate and rhythm Abdomen: abdomen soft, non-distended, non-tender Fundus: non-tender, firm, below umbilicus Extremities: no calf tenderness, non edematous Labs: Lab Results Component Value Date WBC 11.4 (H) 11/11/2021 HGB 10.9 (L) 11/11/2021 HCT 33.3 (L) 11/11/2021 MCV 86.4 11/11/2021 PLT 210 11/11/2021 Assessment/Plan: 1. Juanis Oneill is a POD#1 s/p EUA and suction D&C. She is PPD#3 from a - Doing well, VSS - Encourage ambulation and use of incentive spirometer - Motrin/Tylenol 2. Rh negative/Rubella immune 3. Breast Pump feeding - Denies s/s of mastitis 4. PreE w/ SFs - Elevated Bps, none in severe range - Denies s/s of PreE - PreE labs wnl, P/C 0.13 (11/09) > 0.41 - Mag 2 g/hr off @ 1311 11/12 5. Tobacco Use - Cessation encouraged 6. Anemia - She is clinically asymptomatic - Iron rx sent to pharmacy 7. Continue post-op care. Anticipate DC today Counseling Completed: Secondary Smoke risks and Sudden Infant Syndrome were reviewed with recommendations. sleeping, back to sleep and avoidance of co-sleeping recommendations were reviewed. Signs and Symptoms of Post Depression were reviewed. The patient is to call if any occur. Signs and symptoms of Mastitis were reviewed. The patient is to call if any occur for follow up. Discharge instructions including pelvic rest, incision care, 15 lb weight restriction, no driving with pain medicine and office follow-up were reviewed with patient Attending Physician: Dr. Ervin Castro DO Medical Doctor Md Resident 11/12/2021, 8:[address] Castro at bedside, rounding. Leander RN notifies Dr. Castro of mag level of 5.4. Orders rec'd to d/c [place], vitals changed to every 4 hours while on mag and then every 2 hours after d/c of mag, regular diet. Magnesium level at 3.9 mg/dl not therapeutic level yet. Informed Dr. Andres of level. He would like magnesium sulfate to be increased to 3g/hr for one hour then back to 2 g/hr. Orders placed. Patient had previous severe range pressures today 173/61 @ 0722 and 163/77 @ 1008. Reviewed patient's lab results, patient p/c ratio elevated 0.41. Patient now meets requirements for preeclampsia. Patient seen to discuss diagnosis and for evaluation. Patient declines headache, visual changes, nausea, vomiting, and epigastric pain. Discussed magnesium prophylaxis with patient. Magnesium orders placed. Discussed patient with Dr. Andres who is agreeable with plan for PP magnesium for 24 hours. documented in this encounter [facility] [employer] Phone: 11-12-2021 Hospital Discharg e instructions Lea Castro, DO - 11/12/2021 Images from the original note were not included. Vacuum Aspiration: Care Instructions Your Care Instructions Vacuum aspiration can be used to empty the uterus after a miscarriage or other loss. Many miscarriages pass on their own, but some do not. These are called incomplete miscarriages and missed miscarriages. With an incomplete miscarriage, some of the tissue stays in the uterus after a miscarriage. With a missed miscarriage, all of the tissue stays in the uterusafter a miscarriage. You may have manual or machine vacuum aspiration. With manual vacuum, the doctor uses a specially designed syringe to apply suction. With machine vacuum, a thin tube is attached to a bottle and a pump. The tube is inserted into theuterus. The pump provides gentle suction to remove the tissue. After the procedure, you may have bleeding and spotting. You also may have cramps that feel like menstrual cramps. Guilt, anxiety, and sadness are common reactions after a miscarriage. It is also common to want to know why a miscarriage has happened. Hormonal changes during can make emotionsstronger than usual. These feelings can last a while. Follow-up care is a juárez part of your treatment and safety. Be sure to make and go to all appointments, and call your doctor if you are having problems. It's also a good idea to know your test results and keep alist of the medicines you take. How can you care for yourself at home? If your doctor prescribed antibiotics, take them as directed. Do not stop taking them just because you feel better. You need to take the full course of antibiotics. Rest quietly for the day. You can do normal activities the next day, based on how you feel. Ask your doctor if you can take an [id number] pain medicine, such as acetaminophen (Tylenol), ibuprofen (Advil, Motrin), or naproxen (Aleve). Be safe with medicines. Read and follow all instructions on the label. Use sanitary pads until you stop bleeding. Using pads makes it easier to monitor your bleeding. It is normal to have mild or moderate vaginal bleeding for 1 to 2 weeks. It may be similar to or slightly heavier than a normal period. The bleeding should get monotype mechanic after a week. Ask your doctor when it is okay to have sex. If you don't want to get , ask your doctor about control. You can get again before your next period starts if you aren't using control. If you plan to get again, check with your doctor. If you and your family need help coping with your loss, consider meeting with a support group. You also may want to read about the experiences of other mothers. Or you can talk to friends, a counselor, or member of the clergy. If you feel very sad or depressed for longer than a couple of weeks, talk to a counselor or your doctor. When should you call for help? Call your doctor now or seek immediate medical care if: You have severe vaginal bleeding. This means that you are soaking through your usual pads each hour for 2 or more hours. You are dizzy or lightheaded, or you feel like you may faint. You have new or increased pain in your belly or pelvis. You have a fever. You feel depressed or are not able to function. Watch closely for changes in your health, and be sure to contact your doctor if: Your vaginal bleeding is getting worse. You have any new symptoms. You have vaginal discharge that smells bad. You do not get better as expected. Where can you learn more? Go to [email or web address] and sign in to your [employer]) account. Enter X986 in the Search Health Information box to learn more about Vacuum Aspiration: Care Instructions. If you do not have an account, please click on the Sign Up Now link. Current as of: July 06, 2021 Content Version: 13.3 [employer]. Care instructions adapted under license by [employer]. If you have questions about a medical condition or this instruction, always ask your healthcare professional. [employer] disclaims any warranty or liability for your use of this information. documented in this encounter SHILA DUNHAM [employer] Phone: 03-06-2021 Hospital Discharg e instructions Brayan Waters, - 03/06/2021 Please take all medications as prescribed. Please follow up with your primary care physician (PCP) by calling tomorrow for the next available appointment. If you do not have a PCP please establish care by calling the clinic or a physician listed below. Please return to emergency department sooner if you develop any worsening symptoms, uncontrolled fevers, uncontrolled vomiting, or any other concerns. The following attachments cannot be sent through Care Everywhere.: UTI (Urinary Tract Infection) (Croatian)documented in this encounter [employer] Phone: 05-05-2019 Note PROCEDURE: ULTRASOUN D GUIDED THYROID FNA 05/05/2019 COMPARISON: 04/28/2019 HISTORY: ORDERING SYSTEM PROVIDED HISTORY: Multiple thyroid nodules TECHNOLOGIST PROVIDED HISTORY: Is the patient ?->No Multinodular gland, biopsy of the largest nodule at the junction of right lobe and isthmus TECHNIQUE AND FINDINGS: This procedure was performed by Dr. Mendoza. Informed consent was obtained after the procedure was discussed in detail including the risk, benefits, and alternatives. [place] protocol was followed. The neck was prepped and draped in sterile fashion and local anesthesia was achieved with lidocaine. 25 gauge needle was advanced under ultrasound guidance into a dominant nodule at the junction of right lobe and isthmus and fine-needle aspiration was performed. 3 passes were performed and the patient tolerated the procedure well. Ultrasound images show placement of the needle within the nodule on all occasions. Samples were handed directly to the cytopathologist for review. Preliminary evaluation confirms adequate specimens for assessment. Postprocedure images show no local complication. Band-Aid was applied. The patient left the department in stable condition. EBL: Minimal [employer] Phone: 05-05-2019 Note Renny, Fay Incoming R adiant Results From [employer]/Sequence - 05/05/2019 12:21 PM EST PROCEDURE: ULTRASOUND GUIDED THYROID FNA 05/05/2019 COMPARISON: 04/28/2019 HISTORY: ORDERING SYSTEM PROVIDED HISTORY: Multiple thyroid nodules TECHNOLOGIST PROVIDED HISTORY: Is the patient ?->No Multinodular gland, biopsy of the largest nodule at the junction of right lobe and isthmus TECHNIQUE AND FINDINGS: This procedure was performed by Dr. Mendoza. Informed consent was obtained after the procedure was discussed in detail including the risk, benefits, and alternatives. [place] protocol was followed. The neck was prepped and draped in sterile fashion and local anesthesia was achieved with lidocaine. 25 gauge needle was advanced under ultrasound guidance into a dominant nodule at the junction of right lobe and isthmus and fine-needle aspiration was performed. 3 passes were performed and the patient tolerated the procedure well. Ultrasound images show placement of the needle within the nodule on all occasions. Samples were handed directly to the cytopathologist for review. Preliminary evaluation confirms adequate specimens for assessment. Postprocedure images show no local complication. Band-Aid was applied. The patient left the department in stable condition. EBL: Minimal IMPRESSION: Successful ultrasound-guided fine-needle aspiration biopsy of a thyroid nodule. [employer] Phone: 05-05-2019 History of Presen t illness Narrative Biopsy adequate. Procedure complete. Site cleaned off, band aid applied, ice pack given to pt and pt discharged without difficulty. Right neck prepped, Dr Mendoza arrives, right thyroid nodule biopsy done. 3 specimens sent to pathology, awaiting response. Dr Mendoza explains procedure to pt, consent form signed. Pt supine on IR cart and US at bedside. documented in this encounter [employer] Phone: Evaluation note Diagnosis Urinary tract infection in mother during first trimester of - Primary Positive test examination or test, positive result documented in this encounter [employer] Phone: evaluation note* Diagnosis Amenorrhea Absence of menstruation documented in this encounter [employer] Phone: evaluation note* Diagnosis Missed menses Absence of menstruation documented in this encounter [employer] Phone: evaluation note* Diagnosis Intrauterine - Primary documented in this encounter [employer] Phone: evaluation note* Diagnosis Lower abdominal pain Abdominal pain, other specified site Menorrhagia with irregular cycle Excessive or frequent menstruation BMI 40.0-44.9, adult (HCC) Body Mass Index 40.0-44.9, adult documented in this encounter [employer] Phone: evalireqyu note* Diagnosis Thyroid enlarged Goiter, unspecified documented in this encounter [employer] Phone: evalryoiio note* Diagnosis Menorrhagia with irregular cycle Excessive or frequent menstruation documented in this encounter [employer] Phone: evalnikjnp note* Diagnosis Multiple thyroid nodules Nontoxic multinodular goiter documented in this encounter [employer] Phone: evalrinkzj note* Diagnosis 36 weeks gestation of state, incidental documented in this encounter [employer] Phone: evalkkbice note* Diagnosis Retained products of conception after delivery with complications- Primary Vaginal vault prolapse Unspecified prolapse of vaginal carey Complications, , surgical Other complication of obstetrical surgical wounds, condition or complication Tobacco Use Tobacco use disorder Rh Negative GERD Esophageal reflux Hearing problem of both ears Anemia Iron deficiency anemia secondary to blood loss (chronic) gHTN (G7) Unspecified hypertension complicating , childbirth, or the puerperium, unspecified as to episode of care 11/09/21 F APG 8/9 Wt 7#13 Normal delivery Hx SAB x 2 (G5, G6) Unspecified spontaneous without mention of complication Endometriosis Endometriosis, site unspecified documented in this encounter [employer] Phone: Hospital Discharge instructions* Instructions* Nara Boland RN - 07/03/2021 Call your physicians office or notify your physician by paging them if you experience: Signs of Pre-eclampsia: Dizziness or severe headache Spots before eyes or blurred vision Epigastric pain / Right side abdominal pain Swelling of face, hands, legs or feet not decreased with rest on left side. Signs of infection: Chills Fever Start of, or change in, vaginal discharge Signs of labor: Uterine contractions are regular and 5 minutes apart if 1st baby or 10 minutes apart if not 1st baby Bag or roche leaking or gush of fluid from vagina Any vaginal bleeding that is heavier than a menstrual period Intermittent low backache Abdominal or menstrual like cramping that is constant or heavier, comes and goes Vaginal pressure Potential for dehydration: Vomiting or diarrhea for several hours Potential abnormal well being signs: Decrease or absence of baby movement * Attachments The following attachments cannot be sent through Care Everywhere. * : Placenta Previa (Croatian) * : Weeks 18 to 22 (Croatian) documented in this [facility] Work Phone: Assessments Diagnosis Screen for STD (sexually transmitted disease) Screening examination for venereal disease Women's annual routine gynecological examination Diagnosis Suspected COVID-19 virus infection Diagnosis Threatened miscarriage in early Threatened , unspecified as to episode of care Diagnosis Incomplete Legally unspecified , incomplete, without mention of complication Vaginal bleeding Other specified noninflammatory disorder of vagina Diagnosis Incomplete Legally unspecified , incomplete, without mention of complication Diagnosis Missed menses Absence of menstruation Positive test examination or test, positive result Diagnosis Missed menses Absence of menstruation Diagnosis with inconclusive viability, single or unspecified fetus Missed menses Absence of menstruation Advance Directives No Advanced Directives Records FoundDocuments on File Type Date Recorded 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 Advance Directives and Living Will Power of Delivery Architect Documents on File Type Date Recorded 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 ACP-Advance Directive ACP-Power of Delivery Architect Latest Code Status on File Code Status Date Activated Date Inactivated Comments Full Code 07/03/2021 11:48 AM Latest Code Status on File Code Status Date Activated Date Inactivated Comments Full Code 07/03/2021 11:48 AM 07/03/2021 2:16 PM Documents on File Type Date Recorded 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 Advance Directives and Living Will Power of Delivery Architect Latest Code Status on File Code Status Date Activated Date Inactivated Comments Full Code 11/11/2021 11:19 AM Full Code 11/08/2021 8:11 PM 11/09/2021 10:47 PM Full Code 07/03/2021 11:48 AM 07/03/2021 2:16 PM Summary Purpose Family History No Family History Records FoundNo Family History Records FoundNo Family History Records FoundNo Family History Records Found Reason for Referral Status Reason Specialty Diagnoses / Procedures Referre d By Contact Referred To Contact Open Radiology Diagnoses Thyroid enlarged Procedures US THYROID Jose J Aguilera MD [address] [address] Status Reason Specialty Diagnoses / Procedures Referred By Contact Referred To Contact Pending Review Radiology Diagnoses Menorrhagia with irregular cycle Procedures US PELVIS COMPLETE Jose J Aguilera MD [address] [place] [address] Status Reason Specialty Diagnoses / Procedures Referred By Contact Referred To Contact Pending Review Radiology Diagnoses Multiple thyroid nodules Procedures IR BIOPSY THYROID PERC CORE NEEDLE Jose J Aguilera MD [address] [place] [address] Status Reason Specialty Diagnoses / Procedures Referred By Contact Referred To Contact Not Required - Recondo Radiology Diagnoses Multiple thyroid nodules Procedures US BIOPSY THYROID HC BIOPSY THYROID PERC NEEDLE Jose J Aguilera MD [facility] [address] [address] Additional Source Comments INFORMATION SOURCE (unrecogn ized section and content) DATE CREATED AUTHOR 01/28/2021 [facility] DATE CREATED AUTHOR AUTHOR'S ORGANIZ ATION 10/20/2021 [facility] DATE CREATED AUTHOR AUTHOR'S ORGANIZ ATION 11/16/2021 [facility] DATE CREATED AUTHOR AUTHOR'S ORGANIZ ATION 09/24/2022 [facility] Reason for Visit (unrecogniz ed section and content) Reason Comments Abdominal Pain Dizziness Nausea Back Pain Status Reason Specialty Diagnoses / Procedures Referre d By Contact Referred To Contact Open Radiology Diagnoses Thyroid enlarged Procedures US THYROID Jose J Aguilera MD [address] [address] Status Reason Specialty Diagnoses / Procedures Referred By Contact Referred To Contact Pending Review Radiology Diagnoses Menorrhagia with irregular cycle Procedures US PELVIS COMPLETE Jose J Aguilera MD [address] [facility] [address] [place] [address] Status Reason Specialty Diagnoses / Procedures Referred By Contact Referred To Contact Not Required - [facility] Radiology Diagnoses Multiple thyroid nodules Procedures US BIOPSY THYROID HC BIOPSY THYROID PERC NEEDLE Jose J Aguilera MD [address] [facility] [address] [place] [address] Reason Comments Complications Ordered Prescriptions (unrec ognized section and content) Prescription Sig Dispensed Refills Start Date End Da te cephALEXin (KEFLEX) 500 MG capsule Take 1 capsule by mouth 4 times daily for 7 days 28 capsule 0 03/06/2021 03/13/2021 Prescription Sig Dispensed Refills Start Date End Da te ibuprofen (ADVIL;MOTRIN) 600 MG tablet Take 1 tablet by mouth every 6 hours as needed for Pain 30 tablet 0 11/12/2021 ondansetron (ZOFRAN-ODT) 4 MG disintegrating tablet Take 1 tablet by mouth 3 times daily as needed for Nausea or Vomiting 21 tablet 0 11/12/2021 ferrous sulfate (IRON 325) 325 (65 Fe) MG tablet Take 1 tablet by mouth 2 times daily 60 tablet 2 11/12/2021 Scheduled Active and Recently Administ ered Medications (unrecognized section and content) Medication Order 03/04/2021 03/05/2021 03/06/2021 0.9 % sodium chloride bolus (COMPLETED) 1,000 mL (7.6 mL/kg), IntraVENous, at 1,000 mL/hr, Administer over 1 Hours, ONCE, On 03/06/21 at 1345, For 1 dose 1350 (New Bag - Prov ider: Katt Daniel)1450 (Stopped - Provider: Katt Daniel) ondansetron (ZOFRAN) injection 4 mg (COMPLETED) 4 mg, IntraVENous, ONCE, On 03/06/21 at 1345, For 1 dose 1351 (Given - Provid er: Katt Daniel) Scheduled Medication Order 07/01/2021 07/02/2021 07/03/2021 cyclobenzaprine (FLEXERIL) tablet 10 mg (COMPLETED) 10 mg, Oral, ONCE, On Sun07/03/21 at 1215, For 1 dose 1203 (Given - Provid er: Hanane Gonzalez RN) Scheduled Medication Order 11/10/2021 11/11/2021 11/12/2021 doxycycline monohydrate (MONODOX) capsule 200 mg (COMPLETED) 200 mg, Oral, ONCE, 1 dose, On Sun11/11/21 at 1045, Antimicrobial Indications: Surgical Prophylaxis, This medication can interact with tube feedings (TF)- obtain MD order to manage. Recommend holding TF for 1 h before and 2 h after dose. Take 1 h before or 2 h after dairy, calcium, iron, magnesium, aluminum or zinc. 1205 (Given - Provider: Nara Boland RN) ketorolac (TORADOL) injection 30 mg (COMPLETED) Ketorolac is contraindicated in patients with advanced renal impairment and in patients at risk of renal failure due to volume depletion. For 65 years of age and older OR weight less than 50 kg, use 15 mg IV every 6 hours; MAX dose: 60 mg/day. Dose greater than 30 mg must be administered via intramuscular route. Do not administer for more than 5 days., 30 mg, IntraVENous, EVERY 6 HOURS, 2 doses, First dose on Sun11/11/21 at 1200, Last dose on Sun11/11/21 at 1800, Discontinue when able to take PO ibuprofen., Post-op 1202 (Given - Provider: Nara Boland RN)1823 (Given - Provider: Nara Boland RN) magnesium sulfate 4000 mg in 100 mL IVPB premix (COMPLETED) 4,000 mg, IntraVENous, at 600 mL/hr, Administer over 10 Minutes, ONCE, On Sun11/11/21 at 1315, For 1 dose, Post-op 1311 (New Bag - Provider: Nara Boland RN - Comment: rate change verbal order per Evelin Gimenez CNM)1311 (Paused - Provider: Nara Boland RN)1312 (Restarted - Provider: Nara Bloand RN)1325 (Paused - Provider: Nara Boland RN)1325 (Stopped - Provider: Nara L Boland, RN)1326 (Stopped - Provider: Nara Boland RN) sodium chloride flush 0.9 % injection 5-40 mL 5-40 mL, IntraVENous, EVERY 12 HOURS SCHEDULED (2 times per day), First dose on Sun11/11/21 at 1145, Until Discontinued, For Line Patency: Peripheral IV = 5 mL; Midline or Central Line = 10 mL/lumen. If following IV push medication, administer flush at same rate as the IV push. Flush volume is determined by type of infusion therapy being given. For non-viscous solutions use: Peripheral IV = 5 mL Midline or Central Line = 10 mL/lumen For viscous solutions (i.e. blood components, parenteral nutrition, contrast media, or after obtaining blood sample) use: Peripheral IV = 10 mL Midline or Central Line = 20 mL/lumen, Post-op 1120 (Not Given - Provider: Nara Boland RN - Reason: IV Fluid Infusing)2105 (Not Given - Provider: Doreen Mera RN - Reason: IV Fluid Infusing) 0828 (Not Given - Provider: Makenzie Del Valle - Reason: IV Fluid Infusing)2100 (Due) Continuous Medication Order 11/10/2021 11/11/2021 11/12/2021 lactated ringers infusion (CANCELED) IntraVENous, at 100 mL/hr, CONTINUOUS, Starting on Sun11/11/21 at 0930, Pre-op (day of surgery) 0906 (New Bag - Provider: Myrna Menezes RN)0910 (NoRateChange - Provider: KYAW Vicente CRNA)1012 (Paused - Provider: KYAW Vicente CRNA - Comment: Switch to gravity)1013 (Restarted - Provider: KYAW Vicente CRNA)1105 (Stopped - Provider: Makenzie Del Valle - Comment: Per PACU nurse) lactated ringers infusion IntraVENous, at 75 mL/hr, CONTINUOUS, Starting on Sun11/11/21 at 1145, Post-op 1133 (New Bag - Provider: Nara Boland RN)1138 (Rate/Dose Verify - Provider: Nara Boland RN)1300 (Rate/Dose Change - Provider: Nara Boland RN)1316 (Rate/Dose Verify - Provider: Nara Boland RN)1438 (Rate/Dose Verify - Provider: Nara Boland RN)1440 (Rate/Dose Verify - Provider: Nara Boland RN)1827 (Rate/Dose Verify - Provider: Nara Boland RN) 0823 (Rate/Dose Change - Provider: Sierra Tabor RN)0823 (Rate/Dose Verify - Provider: Sierra Tabor RN)0911 (New Bag - Provider: Makenzie Del Valle)0912 (Rate/Dose Verify - Provider: Sierra Tabor RN)1314 (Stopped - Provider: Makenzie Del Valle) magnesium sulfate (62957 mg/500mL infusion) (CANCELED) 2,000 mg/hr (50 mL/hr), IntraVENous, CONTINUOUS, Starting on Sun11/11/21 at 1315, Until Sun11/11/21 at 2029, 1000 mg = 1 gram; 2000 mg = 2 grams; 20,000 mg = 20 grams, Post-op 1330 (New Bag - Provider: Nara Boland RN)1333 (Rate/Dose Verify - Provider: Nara Boland RN)1440 (Rate/Dose Verify - Provider: Nara Boland RN)1827 (Rate/Dose Verify - Provider: Nara Boland RN)205 (Stopped - Provider: Makenzie Del Valle - Comment: Per Olivia Mera) magnesium sulfate (02339 mg/500mL infusion) () 3,000 mg/hr (75 mL/hr), IntraVENous, CONTINUOUS, Starting on Sun11/11/21 at 2045, Until Sun11/11/21 at 2144, 1000 mg = 1 gram; 2000 mg = 2 grams; 20,000 mg = 20 grams 2100 (Rate/Dose Change - Provider: Doreen Mera RN)215 (Stopped - Provider: Makenzie Del Valle - Comment: Luis Daniel Mera) magnesium sulfate (36578 mg/500mL infusion) 2,000 mg/hr (50 mL/hr), IntraVENous, CONTINUOUS, Starting on Sun11/11/21 at 2145, Until Sun11/12/21 at 1311, 1000 mg = 1 gram; 2000 mg = 2 grams; 20,000 mg = 20 grams 2200 (Rate/Dose Change - Provider: Doreen Mera RN)2200 (Rate/Dose Verify - Provider: Sierra Tabor RN)2305 (Stopped - Provider: Doreen Mera RN)2306 (New Bag - Provider: Doreen Mera RN) 0906 (Rate/Dose Change - Provider: Sierra Tabor RN)0913 (Paused - Provider: Sierra Tabor RN)0913 (New Bag - Provider: Makenzie Del Valle)0914 (Rate/Dose Verify - Provider: Sierra Tabor RN)1314 (Stopped - Provider: Makenzie Del Valle) PRN Medication Order 11/10/2021 11/11/2021 11/12/2021 0.9 % sodium chloride infusion IntraVENous, at 5-250 mL/hr, PRN, if patient receiving piggyback infusions and maintenance fluids are not ordered OR KVO fluids to protect IV site / prevent frequent line interruptions/ long duration, Starting on Sun11/11/21 at 1119, For piggyback infusion, administer at same rate as piggyback for a total of 25 mL. Enter 25 mL into dose field and piggyback rate into rate field of order. If piggyback is infusing at a rate less than 100 mL/hr, enter 25 mL into dose field and 100 mL/hr into rate field of order. For KVO fluids, enter rate of 20 mL/hr or less into rate field of order., Post-op acetaminophen (TYLENOL) tablet 1,000 mg 1,000 mg, Oral, EVERY 6 HOURS PRN, Starting on Sun11/11/21 at 1119, Until Discontinued, Other, Pain (1-10), Give in addition to any other pain medication ordered at same time for any pain indication. Maximum dose of acetaminophen is 4000mg from all sources in 24 hours. Alternate ibuprofen and acetaminophen every 4 hours., Post-op 0417 (Given - Provid er: Doreen Mera RN)0918 (Given - Provider: Makenzie Del Valle) calcium gluconate 10 % injection 1,000 mg 1,000 mg, IntraVENous, NEEDED, Starting on Sun11/11/21 at 1305, Until Discontinued, magnesium toxicity ibuprofen (ADVIL;MOTRIN) tablet 800 mg 800 mg, Oral, EVERY 6 HOURS PRN, Starting on Sun11/11/21 at 2200, Until Discontinued, Pain Mild (1-3), Once tolerating PO, discontinue Toradol and begin ibuprofen 8 hours after the final dose of Toradol. Alternate ibuprofen and acetaminophen every 4 hours., Post-op 1313 (Given - Provid er: Makenzie Del Valle) ipratropium-albuterol (DUONEB) nebulizer solution 1 ampule (COMPLETED) 1 ampule, Inhalation, ONCE PRN, 1 dose, Starting on Sun11/11/21 at 1012, Until Sun11/11/21 at 2359, Shortness of Breath, Initiate RT Bronchodilator Protocol: No 1024 (Given - Provider: Vern Duvall RCP) ondansetron (ZOFRAN) injection 4 mg(Linked Group 1) 4 mg, IntraVENous, EVERY 6 HOURS PRN, Starting on Sun11/11/21 at 1119, Until Discontinued, Nausea, Vomiting, Administer if oral route cannot be used., Post-op ondansetron (ZOFRAN-ODT) disintegrating tablet 4 mg(Linked Group 1) 4 mg, Oral, EVERY 8 HOURS PRN, Starting on Sun11/11/21 at 1119, Until Discontinued, Nausea, Vomiting, Post-op sodium chloride flush 0.9 % injection 5-40 mL 5-40 mL, IntraVENous, PRN, Starting on Sun11/11/21 at 1119, Until Discontinued, Line Care, After every IV line use, For Line Patency: Peripheral IV = 5 mL; Midline or Central Line = 10 mL/lumen. If following IV push medication, administer flush at same rate as the IV push. Flush volume is determined by type of infusion therapy being given. For non-viscous solutions use: Peripheral IV = 5 mL Midline or Central Line = 10 mL/lumen For viscous solutions (i.e. blood components, parenteral nutrition, contrast media, or after obtaining blood sample) use: Peripheral IV = 10 mL Midline or Central Line = 20 mL/lumen, Post-op Linked Groups Order Group 1: ondansetron (ZOFRAN-ODT) disintegrating tablet 4 mgJump to med 4 mg, Oral, EVERY 8 HOURS PRN, Starting on Sun11/11/21 at 1119, Until Discontinued, Nausea, Vomiting, Post-op Or ondansetron (ZOFRAN) injection 4 mgJump to med 4 mg, IntraVENous, EVERY 6 HOURS PRN, Starting on Sun11/11/21 at 1119, Until Discontinued, Nausea, Vomiting
Administer if oral route cannot be used.
Post-op Care Teams (unrecognized sec tion and content) Buying Intern Relationship Specialty Start Date End Date Jose J Aguilera MD [address] [facility] [address] [place] [address] PCP - General Family Medicine 09/16/18 Buying Intern Relationship Specialty Start Date End Date Jose J Aguilera MD [address] [facility] [address] [place] [address] PCP - General Family Medicine 09/16/18 Buying Intern Relationship Specialty Start Date End Date Jose J Aguilera MD [address] [facility] [address] [place] [address] PCP - General Family Medicine 09/16/18 Buying Intern Relationship Specialty Start Date End Date Jose J Aguilera MD [address] [facility] [address] [place] [address] PCP - General Family Medicine 09/16/18 FOR RECORDS PERTAINING TO PATIENTS WHO ARE OR HAVE BEEN ENROLLED IN A CHEMICAL DEPENDENCY/SUBSTANCEABUSE PROGRAM, SOME INFORMATION MAY BE OMITTED. This clinical summary was aggregated from multiple sources. Caution should be exercised in using it in the provision of clinical care. This summary normalizes information from multiple sources, and as a consequence, information in this document may materially change the coding, format and clinical context of patient data. In addition, data may be omitted in some cases. CLINICAL DECISIONS SHOULD BE BASED ON THE PRIMARY CLINICAL RECORDS. [facility] [employer] [facility]. provides no warranty or guarantee of the accuracy or completeness of information in this document.
--- NOTE | 2023-06-17 00:44 | CT_ITS ---
The [address] [address] Patient Name: JUANIS ONEILL MRN: [id number] date: 1980 Sex: F Assigned Patient Location: ER Current Patient Location: ER Accession/Order Number: [id number] Exam Date: 06/17/2023 00:09 Report Date: 06/17/2023 01:44 At the request of: ROXANNE GILLILAND Procedure: CT abdomen pelvis w con EXAM: CT abdomen pelvis w con HISTORY: upper abd pain COMPARISON: None. TECHNIQUE: Axial CT images through the abdomen and pelvis were obtained after the intravenous administration of 100 mL Omnipaque 300 contrast. Coronal and sagittal reformats were obtained. Dose reduction techniques were achieved by using automated exposure control and/or adjustment of mA and/or kV according to patient size and/or use of iterative reconstruction technique. FINDINGS: There is a calcified granuloma in the right lower lobe. Abdomen: The liver and spleen enhance homogeneously without focal lesion. There is no intra or extrahepatic biliary duct dilatation. There is cholelithiasis with gallbladder wall thickening and gallbladder distention measuring up to 14.6 cm. Splenic calcifications are suggestive of prior granulomatous disease. There is hepatomegaly with the liver measuring up to 20.0 cm at the right midclavicular line. The spleen is enlarged measuring up to 15.2 cm. There is a subcentimeter hypodensity in the left kidney that is too small to characterize by CT size criteria (series 3, image 60). Otherwise, the pancreas, adrenal glands, kidneys, and bowel loops, including the appendix, are unremarkable. There is no mesenteric or retroperitoneal lymphadenopathy. Pelvis: The bladder demonstrates wall thickening. The rectum is unremarkable. There is no iliac or inguinal lymphadenopathy. An IUD appears to be appropriately positioned. There are suspected bilateral ovarian follicles measuring up to 2.6 x 2.5 cm on the right (series 3, image 113). A tampon is in place. Bone windows show no aggressive osseous lesions. CT/CT abdomen pelvis w con IMPRESSION: 1. Cholelithiasis with gallbladder wall thickening and gallbladder distention. These findings are concerning for acute cholecystitis. Consider further evaluation with a right upper quadrant ultrasound examination as clinically indicated. 2. Hepatosplenomegaly. 3. Normal appendix. 4. Urinary bladder wall thickening. Please correlate with urinalysis for infection. 5. An IUD appears to be appropriately positioned. Electronically authenticated by: Zoe FULLER Date: 06/17/2023 01:44
--- NOTE | 2023-06-17 00:46 | ED.ABDPAIN1 ---
HPI - Abdominal Pain General Chief Complaint: Abdominal Pain Stated Complaint: back and abd pain Time Seen by Provider: 06/17/23 00:40 Source: patient Mode of arrival: walk-in Limitations: no limitations History of Present Illness HPI narrative: Patient complains of upper abdominal pain that began about a week ago. Nausea but no vomiting. No diarrhea. No blood in urine or stool. No fever or chills. Pain radiates from upper abdomen to mid back. No prior history of similar - no prior diagnosis of gastritis, pancreatitis or gallstones. She is currently on her menstrual period and denies chance fo . No meds taken [employer]. Related Data Home Medications Medication Instructions Recorded Confirmed ferrous sulfate 325 mg (65 mg 325 mg PO BID 06/17/23 06/17/23 iron) tablet Allergies Allergy/AdvReac Type Severity Reaction Status Date / Time No Known Drug Allergies Allergy Verified 06/17/23 00:28 [facility] Social History Smoking status: Current every day smoker Exam Narrative Exam Narrative: Nurses notes and vital signs reviewed and patient is not hypoxic. afebrile General: Well-appearing and in no apparent distress. Skin: Warm, dry, no pallor noted. No rash. Head: Normocephalic, atraumatic. Neck: Supple, non-tender. Eye: Pupils are equal, round and EOMI. No scleral icterus. Cardiovascular: Regular Rate and Rhythm without murmur, gallop or rub. Respiratory: No accessory muscle use or respiratory distress. Lungs are clear to auscultation, no wheezing, rales or rhonchi Back: No midline thoracic or lumbar vertebral tenderness. No CVA tenderness Musculoskeletal: normal ROM, no calf or popliteal tenderness, no lower extremity edema/swelling GI: Abdomen is soft, non-distended. Normal bowel sounds. No masses appreciated. Epigastric tenderness to palpation. No rebound, guarding, or rigidity noted. Neurological: A&O x4. No cranial nerve dysfunction observed. No truncal ataxia. Moves all extremities. Sensation intact. Psychiatric: Cooperative and interactive. Normal mood and affect. Constitutional Vital Signs, click to edit/add: Last Vital Signs Temp 99.1 F 06/17/23 00:29 Pulse 72 06/17/23 01:35 Resp 18 06/17/23 01:35 BP 139/66 06/17/23 01:35 Pulse Ox 98 06/17/23 01:35 O2 Del Method Room Air 06/17/23 01:35 Course Vital Signs Vital signs: Vital Signs Temperature 99.1 F 06/17/23 00:29 Pulse Rate 74 06/17/23 00:29 Respiratory Rate 18 06/17/23 00:29 Blood Pressure 162/80 H 06/17/23 00:29 Pulse Oximetry 100 06/17/23 00:29 Oxygen Delivery Method Room Air 06/17/23 00:29 Temperature 99.1 F 06/17/23 00:29 Pulse Rate 72 06/17/23 01:35 Respiratory Rate 18 06/17/23 01:35 Blood Pressure 139/66 06/17/23 01:35 Pulse Oximetry 98 06/17/23 01:35 Oxygen Delivery Method Room Air 06/17/23 01:35 MDM - Abdominal Pain MDM Narrative Medical decision making narrative: Peripheral IV established and blood drawn and sent for testing. CT abd/pelvis w contrast ordered and obtained. She was given NS IVF, IV Zofran, IV Protonix and IV Dilaudid. WBC 11.3k. Unremarkable CMP. Negative/normal Lipase. CT = gallstones with GB wall thickening and GB distention concerning for acute cholecystitis. Case discussed with Dr Butler. Because the patient's BMO is 46, he asked that the patient be transferred to another facility. Patient agreed to go to nearest facility - in [place]. Dr Schafer - general surgeon legislative correspondent at [facility] - and I discussed the case and he agreed to be a underwriting consultant if the hospitalist would admit. Case discussed with the [facility] hospitalist, Dr Spears. Patient accepted and will be transported to [facility] once ambulance available to ensure safe transport. Patient felt better after ED treatment with decreased nausea and decreased pain. Differential Diagnosis Differential diagnosis: Likely abdominal pain, constipation, diverticulitis, gastroenteritis, pancreatitis and small bowel obstruction Lab Data Attestation: I reviewed the patient's lab results. Labs: Lab Results 06/17/23 Range/Units 00:36 WBC 11.3 H (4.0-11.0) 10^3/uL RBC 4.72 (4.20-5.40) 10^6/uL Hgb 9.3 L (12.0-16.0) g/dL Hct 34.0 L (36.0-48.0) % MCV 72.0 L (81.0-99.0) fL MCH 19.7 L (26.7-34.0) pg MCHC 27.4 L (29.9-35.2) g/dL RDW 16.8 H (11.0-15.0) % Plt Count 277 (150-450) 10^3/uL MPV 11.4 (9.5-13.5) fL Neut % (Auto) 66.9 (43.0-75.0) % Lymph % (Auto) 26.0 (20.5-60.0) % [place] % (Auto) 5.0 (1.7-12.0) % Eos % (Auto) 1.3 (0.9-7.0) % Baso % (Auto) 0.5 (0.2-2.0) % Neut # (Auto) 7.6 H (1.4-6.5) 10^3/uL Lymph # (Auto) 2.9 (1.2-3.8) 10^3/uL [place] # (Auto) 0.6 (0.3-0.8) 10^3/uL Eos # (Auto) 0.2 (0.0-0.7) 10^3/uL Baso # (Auto) 0.1 (0.0-0.1) 10^3/uL Abs Immat Gran (auto) 0.03 (0.00-0.03) 10^3/uL Imm/Tot Granulo (auto) 0.3 (0.0-0.5) % Sodium 140 (136-145) mmol/L Potassium 3.7 (3.5-5.1) mmol/L Chloride 104 (98-107) mmol/L Carbon Dioxide 30.1 (21.0-32.0) mmol/L Anion Gap 9.6 BUN 13.0 (7.0-18.0) mg/dL Creatinine 0.87 (0.55-1.02) mg/dL Est GFR ( Amer) >60 (>=60) Est GFR (Non-Af Amer) >60 (>=60) BUN/Creatinine Ratio 14.9 Glucose 80 (74-106) mg/dL Calcium 8.7 (8.5-10.1) mg/dL Total Bilirubin 0.2 (0.2-1.0) mg/dL AST 9 L (15-37) U/L ALT 13 L (14-59) U/L Alkaline Phosphatase 82 (46-116) U/L Total Protein 7.7 (6.4-8.2) g/dL Albumin 3.5 (3.4-5.0) g/dL Globulin 4.2 g/dL Albumin/Globulin Ratio 0.8 Lipase 21.0 (16.0-77.0) U/L Discharge Plan Discharge Chief Complaint: Abdominal Pain Clinical Impression: Cholecystitis, acute with cholelithiasis, Abdominal pain Patient Disposition: [facility] Time of Disposition Decision: 02:30 Discharge Location: [facility]
[2023-06-17 00:50] LABS: Basophils Absolute Auto 0.1 10^3/uL (0.0-0.1); Basophils Percent Auto 0.5 % (0.2-2.0); Eosinophils Absolute Auto 0.2 10^3/uL (0.0-0.7); Eosinophils Percent Auto 1.3 % (0.9-7.0); Hemoglobin 9.3 g/dL (12.0-16.0); Immature Granulocytes Abs Auto 0.03 10^3/uL (0.00-0.03); Immature Granulocytes Pct Auto 0.3 % (0.0-0.5); Lymphocytes Absolute Auto 2.9 10^3/uL (1.2-3.8); Mean Corpuscular HGB Conc 27.4 g/dL (29.9-35.2); Mean Corpuscular Hemoglobin 19.7 pg (26.7-34.0); Mean Platelet Volume 11.4 fL (9.5-13.5); Monocytes Absolute Auto 0.6 10^3/uL (0.3-0.8); Neutrophils Absolute Auto 7.6 10^3/uL (1.4-6.5); Neutrophils Percent Auto 66.9 % (43.0-75.0); Platelet Count 277 10^3/uL (150-450); Red Blood Count 4.72 10^6/uL (4.20-5.40); Red Cell Distribution Width 16.8 % (11.0-15.0); White Blood Count 11.3 10^3/uL (4.0-11.0)
[2023-06-17 01:02] LABS: Alanine Aminotransferase 13 U/L (14-59); Albumin Globulin Ratio 0.8; Albumin Level 3.5 g/dL (3.4-5.0); Alkaline Phosphatase 82 U/L (46-116); Anion Gap 9.6; Aspartate Amino Transferase 9 U/L (15-37); BUN Creatinine Ratio 14.9; Bilirubin Total 0.2 mg/dL (0.2-1.0); Calcium 8.7 mg/dL (8.5-10.1); Carbon Dioxide 30.1 mmol/L (21.0-32.0); Chloride 104 mmol/L (98-107); Estimated GFR (African America >60 (>=60); Estimated GFR (Non-African Ame >60 (>=60); Globulin 4.2 g/dL; Glucose 80 mg/dL (74-106); Potassium 3.7 mmol/L (3.5-5.1); Sodium 140 mmol/L (136-145); Total Protein 7.7 g/dL (6.4-8.2)
[2023-06-17] MEDS: 0.9 % SODIUM CHLORIDE 1,000 ML 999 ML IV (01:26)
[2023-06-17] MEDS: HYDROMORPHONE HCL 0.5 MG/0.5 ML SYRINGE IV ×2 (01:28→03:47)
[2023-06-17] MEDS: ONDANSETRON PF 4 MG/2 ML VIAL IV (01:28)
[2023-06-17] MEDS: PANTOPRAZOLE SODIUM 40 MG VIAL IV (01:29)
[2023-06-17 01:35] VITALS: BP 139/66; PULSE 72; RESP 18; O2SAT 98
[2023-06-17 03:33] VITALS: BP 141/64; PULSE 62; RESP 18; O2SAT 100
[2023-06-17] MEDS: CEFTRIAXONE 1,000 MG in 0.9 % SODIUM CHLORIDE 50 ML 100 MG IV (03:48)
--- NOTE | 2023-06-17 04:57 | PC.NURSE ---
[facility] arrives at this time for transport.
== END 2023-06-17 05:03 | disposition short-term general hospital (02) ==
PROVIDERS: Emergency Provider Emergency Medicine
DX: K80.00 Calculus of gallbladder with acute cholecystitis without obstruction (principal); R10.9 Unspecified abdominal pain; F17.210 Nicotine dependence, cigarettes, uncomplicated
CPT/HCPCS: 36415; 74177; 80053; 83690; 85025; 96365; 96375; 96376; 99285; J0696; J1170; J2405; Q9967